=== PATIENT | male | born 1960 | race Caucasian/White ===

== ENCOUNTER 2018-09-26 11:10 | Emergency (ER) | payer OTHER, MEDICARE, SELFPAY ==
[2018-09-26] VITALS (13 sets, daily range): BP systolic 101–169; BP diastolic 69–99; PULSE 56–67; RESP 16; TEMP 36.7; O2SAT 89–97
[2018-09-26 11:35] LABS: Bilirubin Negative (Negative); Blood Trace-intact (Negative); Clarity Clear (Clear); Glucose Negative (Negative); Ketones Negative (Negative); Leukocyte Esterase Negative (Negative); Nitrite Negative (Negative)
[2018-09-26 11:46] LABS: Bacteria Rare HPF (Negative); C & S Indicated? No; Casts Negative LPF (Negative); Crystals Negative HPF (Negative); Epithelial Cells Few HPF (Negative); Mucus Moderate (Negative); Other Cells Rare Renal (Negative); WBC 0-2 HPF (0-5)
--- NOTE | 2018-09-26 11:46 | ED.GENADUL_ITS ---
Discharge Plan Disposition Patient Disposition: HOME Condition: Stable Discharge Details Chief Complaint: FlankPain Clinical Impression: Acute flank pain Primary Care Provider: John Trinh ED Provider: Raphael Yeboah Home Meds and New Rx's Prescriptions: New Aspercreme (lidocaine) 4 % adhesive patch,medicated 1 patch TP DAILY PRN (Reason: pain) Qty: 5 RF: 0 No Action Lift Chair Qty: 1 RF: 0 lansoprazole [Prevacid] 30 MG capsule,delayed release(DR/EC) 1 cap PO DAILY Qty: 90 RF: 4 medical marijuana RF: 0 Discharge Instructions Instructions: Flank Pain (ED) Additional Instructions: Please take 600 mg of ibuprofen every 8 hours for pain along with 1 g of Tylenol every 8 hours for pain. Please apply a lidocaine patch to the affected area once daily. Please return for increasing pain fever chills or other concern and follow-up with your primary care doctor this week. Your blood pressure was elevated in the emergency department today please recheck your blood pressure this week and follow-up with your primary care doctor for possible adjustment of your blood pressure medications. Medical Decision Making 58-year-old male with flank pain on the right side no abdominal tenderness no right lower quadrant tenderness prior history of appendectomy prior history of distant renal colic. Pain more classic for musculoskeletal pain no bowel bladder incontinence no change in sensation no distal weakness no foot drop normal plantar flexion and extension normal distal sensation on exam. Bedside ultrasound shows bilateral kidneys without hydronephrosis. UA shows trace blood will obtain basic labs check renal function and obtain a Noncon CT for possible renal colic if normal will treat symptomatically for muscular skeletal pain and have patient follow-up with primary care. 3:[address] abdomen pelvis unremarkable no renal calculi exam continues to be consistent with musculoskeletal flank and back pain plan analgesia rest primary care follow-up return for increasing pain fever chills or other concern. HPI 58-year-old male past medical history of hypertension Parkinson's disease distant renal calculi presents with 2 to 3 days of right flank pain without radiation worse with walking and standing waxes and wanes sometimes at rest no dysuria no gross hematuria no fever chills patient fell from standing yesterday or the day before no head trauma this pain did not change occurred before the fall no other complaints. No shortness of breath chest pain nausea vomiting diarrhea loss of consciousness fever or chills. Pain is sharp waxing and waning nonradiating worse with movement. General Date/Time Provider Initiated Documentation: 09/26/18 11:21 . Related Data Home Medications Medication Instructions Recorded Confirmed lansoprazole [Prevacid] 1 cap PO DAILY #90 cap 10/05/17 09/26/18 lidocaine [Aspercreme (lidocaine)] 1 patch TP DAILY PRN #5 each 09/26/18 Previous Rx's Medication Instructions Recorded lansoprazole [Prevacid] 1 cap PO DAILY #90 cap 10/05/17 lidocaine [Aspercreme (lidocaine)] 1 patch TP DAILY PRN #5 each 09/26/18 Allergies Allergy/AdvReac Type Severity Reaction Status Date / Time oxybutynin Allergy Severe Hallucinati Verified 09/26/18 11:19 ons/suicida l mirabegron [From Myrbetriq] Allergy Unknown suicidal Verified 09/26/18 11:19 ideations/dreams fentanyl AdvReac Severe HALLUCINATIONS; Unverified 09/26/18 11:19 SUICIDAL IDEATION General Stated Complaint: FlankPain R[place]: 3 Review of Systems Review of Systems All systems reviewed & are unremarkable except as noted in HPI and below PFSH Social History (Updated 01/20/18 @ 11:12 by Stacey Riley RN) Smoking/Tobacco Use Status: Former Tobacco Use Drug use: Current Sobriety Adopted: No Foster care: No Household members: spouse Housing: house Number of Children: 3 number of grandchildren: 1 Pets and animals: Yes Pets and animals: cat(s) and dog(s) What type of physical activity do you participate in: additional Details: enrolled in boxing program in [place] Seatbelt use: sometimes Do you feel safe at home: Yes Do you feel safe in your relationship?: Yes Exam Narrative Exam Narrative: Pulse oximetry reviewed by me and is normal: Constitutional: in no acute distress. well appearing. oriented to person, place, and time. Eyes: conjunctivae are normal. Pupils are equal, round, and reactive to light. No scleral icterus. extraocular muscles are intact Ears/Nose/Mouth/Throat: muscousal membranes are moist. Musculoskeletal: neck is supple. normal range of motion in all extremities. Cardiovascular: Normal rate and rhythm. No lower extremity edema Respiratory: effort is normal. no stridor or respiratory distress. GastrointestinaI: abdomen soft, +BS, nontender, -rebound, -guarding. No CVAT Neurological: alert and oriented to person, place, and time. normal strength, no tremor. Skin: Skin is warm and dry. not diaphoretic. Distal perfusion intact, warm extremities, cap refill < 2 seconds. Hem/Lymph/Imm: No cervical LAD, no goiter, no conjunctival pallor Psych: normal mood and affect. behavior is normal Triage and nurse notes reviewed. Course Vital Signs Temperature 36.7 C 09/26/18 11:15 Pulse 67 09/26/18 11:15 Respiratory Rate 16 09/26/18 11:15 Blood Pressure 169/99 H 09/26/18 11:15 Pulse Oximetry 95 09/26/18 11:15 Temperature 36.7 C 09/26/18 11:15 Temperature Source Temporal Artery Scan 09/26/18 11:15 Pulse 67 09/26/18 11:15 Respiratory Rate 16 09/26/18 11:15 Respiratory Effort Non-Labored 09/26/18 11:17 Blood Pressure 169/99 H 09/26/18 11:15 Blood Pressure Position Sitting 09/26/18 11:15 Pulse Oximetry 95 09/26/18 11:15 Oxygen Delivery Method Room Air 09/26/18 11:15 Oxygen Flow Rate 0 09/26/18 11:15 Pain Level 5 09/26/18 11:18 Lab/Test Results Lab/Test Results: Laboratory Tests Range/Units 09/26/18 11:23 Urine Color (Yellow) Yellow Urine Clarity (Clear) Clear Urine pH (5-8) 6.0 Ur Specific [place] (1.005-1.025) 1.020 Urine Protein (Negative) mg/dL Negative Urine Ketones (Negative) mg/dL Negative Urine Blood (Negative) Trace-intact H Urine Nitrite (Negative) Negative Urine Bilirubin (Negative) Negative Urine Urobilinogen (Up TO 0.2) EU/dL 1.0 H Ur Leukocyte Esterase (Negative) Negative Urine Glucose (Negative) mg/dL Negative
[2018-09-26 12:13] LABS: Abs Immature Grans 0.02 k/cumm (0.0-0.09); Absolute Basophil Count 0.03 k/cumm (0.0-0.2); Absolute Eosinophil Count 0.12 k/cumm (0.0-0.7); Absolute Lymphocyte Count 1.18 k/cumm (1.2-3.4); Absolute Monocyte Count 0.83 k/cumm (0.11-0.7); Absolute Neutrophil Count 4.35 k/cumm (1.2-6.7); Basophils % 0.5; Eosinophils % 1.8; HCT 45.5 % (40.0-50.0); Immature Grans % 0.3; Lymphocytes % 18.1; Mean Corp. HGB Concentration 35.2 g/dL (32.0-36.0); Mean Corpuscular Hemoglobin 31.3 pg (27.0-33.0); Mean Platelet Volume 9.4 fL (8.0-11.0); Monocytes % 12.7; Neutrophils % 66.6; Platelet Count 238 x1000/uL (130-400); RBC 5.11 m/cumm (4.50-6.00); RBC Distribution Width 12.9 % (11.8-14.1); White Blood Cell Count 6.53 k/cumm (4.4-10.8)
[2018-09-26 12:21] LABS: Anion Gap 9.6 mmol/L (3-11); BUN 15 mg/dL (7-18); CO2 26.4 mmol/L (21.0-32.0); CREATININE 0.82 mg/dL (0.70-1.30); Calcium 9.2 mg/dL (8.5-10.1); Chloride 107 mmol/L (98-107); Glucose 108 mg/dL (70-100); Potassium 3.7 mmol/L (3.5-5.1); Sodium 143 mmol/L (136-145)
[2018-09-26] MEDS: Ketorolac 30 MG/ML VIAL IVP (12:31)
--- NOTE | 2018-09-26 13:24 | DI.CT_ITS ---
SYMPTOMS/DIAGNOSIS: FLANK PAIN RENAL COLIC CT: Routine examination was performed. Comparison 01/21/10. Lack of IV contrast does limit evaluation of the abdominal and pelvic organs. The unenhanced visualized portions of the liver, spleen, pancreas, gallbladder, bile ducts and adrenal glands are unremarkable. The kidneys show no evidence of nephrolithiasis, ureterolithiasis or hydronephrosis. The urinary bladder is intact. The reproductive organs are unremarkable. The aorta is of normal caliber. No significant abdominal or pelvic adenopathy, ascites or pneumoperitoneum is present. The bowel shows no evidence of obstruction, inflammation or infection. A normal appendix is present. The patient has a left total hip replacement. No osseous fracture is identified. Degenerative changes are seen in the spine. IMPRESSION: No acute abnormality. No findings of nephrolithiasis or obstructive uropathy.
[2018-09-26] MEDS: MORPHine 10 MG/ML VIAL 2 MG IVP (13:48)
--- NOTE | 2018-09-26 14:38 | DI.VRAD_ITS ---
EXAM: CT Abdomen and Pelvis Without Contrast EXAM DATE/TIME: 09/26/2018 11:47 AM CLINICAL HISTORY: 58 years old, male; Other: Flank pain TECHNIQUE: Imaging protocol: Axial computed tomography images of the abdomen and pelvis without contrast. Coronal and sagittal reformatted images were created and reviewed. COMPARISON: CR LEFT HIP COMPLETE \T\ AP PELVIS 07/02/2016 3:36 PM FINDINGS: Liver: Normal. No mass. Gallbladder and bile ducts: Normal. No calcified stones. No ductal dilation. Pancreas: Normal. No ductal dilation. Spleen: Normal. No splenomegaly. Adrenals: Normal. No mass. Kidneys and ureters: No ureteral calculus. No renal calculus Stomach and bowel: Normal. No obstruction. No mucosal thickening. Appendix: Normal appendix Intraperitoneal space: Normal. No free air. No significant fluid collection. Vasculature: Normal. No abdominal aortic aneurysm. Lymph nodes: Normal. No enlarged lymph nodes. Bladder: Unremarkable as visualized. Reproductive: Unremarkable as visualized. Bones/joints: Left total hip replacement. Soft tissues: Unremarkable. IMPRESSION: No acute process Dictated and Authenticated by: Kimberly Estrada MD. Ordering:PRECIOUS Lim MD
== END 2018-09-26 15:50 | disposition home or self-care (01) ==
PROVIDERS: Emergency Provider Emergency Medicine; PCP Family Medicine
DX: M54.5 Low back pain (principal); Z87.442 Personal history of urinary calculi; I10 Essential (primary) hypertension; G20 Parkinson's disease
CPT/HCPCS: 80048; 96374; 96375; 99284; 74176; 81003; 81015; 85025; 99285; J1885; J2270

== ENCOUNTER 2018-12-16 11:53 | Day surgery (SDC) | payer OTHER, MEDICARE, SELFPAY ==
[2018-12-16 12:07] VITALS: BP 143/94; PULSE 69; RESP 17; TEMP 36.5; O2SAT 96
[2018-12-16] MEDS: Lactated Ringers 1,000 ML 80 ML IV (13:01)
--- NOTE | 2018-12-16 13:25 | DI.RAD_ITS ---
EXAM: XR RETROGRADE IN OR INDICATION: MICROSCOPIC HEMATURIA. COMPARISON: No exams were available for comparison TECHNIQUE: 2D digital imaging was performed. FINDINGS: C-arm fluoroscopy was utilized by Dr. Sheridan during retrograde ureterography. Please see Dr. Sheridan's procedure note. Fluoro Time: 25.0 sec
[2018-12-16] MEDS: ceFAZolin 1 GM/50 ML BAG IVPB (13:50)
[2018-12-16] MEDS: Omnipaque 300 MG/ML 50 ML BTL (14:05)
[2018-12-16] MEDS: Lidocaine 2% Jelly 6 ML SYR (14:05)
--- NOTE | 2018-12-16 14:15 | W.PM.DSUDISC ---
Discharge Plan Disposition Patient Disposition: HOME Discharge Details Attending Provider: Andres Sheridan Primary Care Provider: John Trinh Home Meds and New Rx's Prescriptions: No Action Lift Chair Qty: 1 RF: 0 lansoprazole [Prevacid] 30 MG capsule,delayed release(DR/EC) 1 cap PO DAILY Qty: 90 RF: 4 medical marijuana RF: 0 Discharge Instructions Additional Instructions: Follow up yearly with urinalysis Activity:: Activity as Tolerated Shower/Bathe:: 24 hours Diet:: As Tolerated Discharge Orders Discharge Orders: Discharge Order (Routine); Ordered 12/16/18 Ordered By: Andres Sheridan DS: Diagnosis Discharge Diagnosis (1) Microscopic hematuria: Status: Acute
[2018-12-16 14:50] VITALS: BP 141/93; PULSE 61; RESP 16; TEMP 36.3; O2SAT 98
[2018-12-16] MEDS: Phenazopyridine 200 MG TAB PO (14:52)
--- NOTE | 2018-12-17 10:14 | ROE_ITS ---
DATE OF PROCEDURE: December 16, 2018 PREOPERATIVE DIAGNOSIS: Microscopic hematuria. POSTOPERATIVE DIAGNOSIS: Microscopic hematuria. PROCEDURE: Cystoscopy with bilateral retrograde pyelogram. SURGEON: Andres Sheridan M.D. ANESTHESIA: MAC with local. COMPLICATIONS: None. HISTORY: This is a 58-year-old gentleman who has been identified as having microscopic hematuria wit h greater than three red cells per high powered field. He's had a non-contrast CT that showed no spe cific uropathology. He presents for a cystoscopy and retrograde pyelogram to complete his hematuria workup. OPERATIVE REPORT: The patient was brought to the Operating Room on 12/16/18. After being given chela tored anesthesia care, he was placed in the dorsal lithotomy position. His genitalia was prepped and draped. 2% Xylocaine jelly was instilled into the urethra to act as a local anesthetic. A 22 Y[place] rigid cystoscope was passed through the urethra into the bladder. The urethra and bladde r were inspected with a 30-degree lens. The pendulous, bulbous and membranous urethras all appeared normal with no strictures. The prostatic urethra showed evidence of an elevated bladder neck and some lateral lobe enlargement. The prostati c mucosa was hyperemic but no active bleeding was seen and no papillary lesions were seen in the pros tatic urethra. The bladder neck was entered and the bladder mucosa was inspected. Both ureteral orifices appeared n ormal. Each orifice was cannulated with a 6 Y[place]ut access catheter and retrograde films were obtaine d by injecting Omnipaque through the access catheter under fluoroscopic guidance. Both ureters and collecting systems appeared normal. Both sides drained promptly on delayed drainage films. The remainder of the bladder was then inspected using both the 30 and the 70-degree lens. The bladde r was moderately trabeculated, but I did not see any papillary or nodular lesions. I saw no stones. Based on today's examination the most-likely source of his microscopic hematuria is his prostatic ure thra. As long as he is not symptomatic no treatment is needed. If he is symptomatic a 5-alpha reduc tase inhibitor, such as Finasteride or Avodart, would be appropriate. In terms of follow-up, he will need year urinalyses and a repeat workup in 3 to 5 years if his hematu michele persists. cc: John Trinh M.D.
== END 2018-12-16 15:12 | disposition home or self-care (01) ==
PROVIDERS: PCP Family Medicine; Visit Provider Urology
PROC: (CPT 74450; principal; 2018-12-16 13:00)
DX: R31.29 Other microscopic hematuria (principal); I10 Essential (primary) hypertension; G47.33 Obstructive sleep apnea (adult) (pediatric)
CPT/HCPCS: 52005; 74420; J0690; Q9967

== ENCOUNTER 2020-02-17 01:24 | Outpatient (CLI) | payer OTHER, MEDICARE, SELFPAY ==
--- NOTE | 2020-02-17 06:45 | DI.RAD_ITS ---
EXAM: XR CHEST 2V PA LATERAL CLINICAL HISTORY: chronic cough,R05 TECHNIQUE: 2D digital imaging was performed. COMPARISON: CR CHEST 2 VIEWS PA,LAT from 05/25/2010 FINDINGS: MEDIASTINUM: Normal. HEART: Normal. PULMONARY VASCULATURE: Normal. LUNGS: Clear. PLEURAL SPACE: No pleural effusion or pneumothorax. BONE:Normal. OTHER FINDINGS:Normal. IMPRESSION: No acute pulmonary findings. DATA REPOSITORY: RADIATION DOSE DELIVERED:
== END 2020-02-17 01:44 ==
PROVIDERS: PCP Nurse Practitioner Family; Visit Provider Nurse Practitioner Family
DX: R05 Cough (principal)
CPT/HCPCS: 71046

== ENCOUNTER 2020-04-19 02:59 | Outpatient (CLI) | payer OTHER, MEDICARE, SELFPAY ==
[2020-04-19 10:19] LABS: Anion Gap 10.9 mmol/L (3-11); BUN 13 mg/dL (7-18); CO2 26.1 mmol/L (21.0-32.0); Calcium 9.3 mg/dL (8.5-10.1); Calculated LDL 117 mg/dL (<100); Chloride 104 mmol/L (98-107); Cholesterol 180 mg/dL (<200); Glucose 106 mg/dL (74-106); HDL Cholesterol 48 mg/dL (40-60); Potassium 3.7 mmol/L (3.5-5.1); Sodium 141 mmol/L (136-145); Triglyceride 77 mg/dL (<150)
== END 2020-04-19 03:00 | disposition home or self-care (01) ==
LOC: LBO 02:59
PROVIDERS: PCP Nurse Practitioner Family; Visit Provider Nurse Practitioner Family
DX: E78.5 Hyperlipidemia, unspecified (principal)
CPT/HCPCS: 36415; 80048; 80061; 83036

== ENCOUNTER → 2020-05-03 13:02 | Outpatient (BNVA) | payer MEDICARE, OTHER, SELFPAY | PROVIDERS: PCP Nurse Practitioner Family; Referring Provider Nurse Practitioner Family; Visit Provider Surgery | DX: Z12.11 Encounter for screening for malignant neoplasm of colon (principal) | CPT/HCPCS: 99242 ==

== ENCOUNTER 2020-05-11 11:07 | Day surgery (SDC) | payer OTHER, MEDICARE, SELFPAY ==
[2020-05-11 11:24] VITALS: BP 156/98; PULSE 71; RESP 16; TEMP 36; O2SAT 96
[2020-05-11] MEDS: Lactated Ringers 1,000 ML 80 ML IV (11:52)
--- NOTE | 2020-05-11 13:34 | W.COLOREPORT ---
Date of service: 05/11/20 Time of Service: 13:34 Colonoscopy Report Date of procedure: 05/11/20 Pre-op diagnosis general: screening Post-op diagnosis procedure note: other Procedure: rectal exam under sedation Surgeon: Melva Josue Anesthesia proc note operative: MAC Estimated blood loss (mL): 0 Pathology: none sent Complications: None Disposition: same day Prep: Miralax/Dulcolax Procedure Description: After informed consent was obtained the patient was taken to the procedure room and placed in a left decubitous position. Monitors were applied and a time out was done. The patients name, date of , procedure, allergies to medications and metal in their body was reviewed. The patient was then sedated. Once sedated and comfortable a rectal exam was done. External exam was normal. Internal exam revealed a normal sphincter tone and no palpable masses. The scope was then introduced and retrofelexed. no internal hemorrhoids were identified. There are no masses in the rectum. Patient has good tone. The scope was inserted. It is passed the to approximately 20 cm. There is stool that is coating the conteh. It does clog up the valve on the scope. At this point the scope was abandoned because of poor prep. Patient really is a poor candidate for anesthesia and I do not think he needs requires further colonoscopy. The scope was removed and the patient was woken up and taken back to Same day surgery in stable condition. The patient tolerated the procedure well and there were no immediate complications.
--- NOTE | 2020-05-11 13:37 | W.PM.DSUDISC ---
Discharge Plan Disposition Patient Disposition: HOME Condition: Stable Discharge Details Reason For Visit: colon scope Attending Provider: Melva Josue Primary Care Provider: Heena Martínez Home Meds and New Rx's Prescriptions: New docusate sodium [Colace] 100 mg capsule 100 mg PO BID Qty: 60 RF: 12 polyethylene glycol 3350 [Miralax] 17 gram/dose powder 17 g PO DAILY Qty: 850 RF: 12 Continued lansoprazole [Prevacid] 30 mg capsule,delayed release(DR/EC) 30 mg PO .Every other day Qty: 90 RF: 4 bupropion HCl [Wellbutrin XL] 300 mg tablet extended release 24 hr 300 mg PO QAM Qty: 90 RF: 4 acetaminophen [Tylenol Extra Strength] 500 mg tablet 1,500 mg PO Q6H PRNRF: 0 medical marijuana RF: 0 Discharge Instructions Additional Instructions: Findings: normal rectal exam incomplete prep Bowel regimen: Colace 100mg BID Miralax daily. Can increase to Miralax BID if still experiencing constipation. Follow up: No further colonscopy's needed Please call if you develop: fevers >101.5 Nausea or Vomiting Abdominal pain that is not transient DAY SURGERY UNIT POST COLONOSCOPY INSTRUCTIONS 1. Because there will be medication in your system for the next 24 hours, you may feel a little sleepy. Your coordination will be affected. Therefore: a. Do not drive or operate dangerous equipment for 24 hours. b. Do not drink alcohol beverages for 24 hours (not even beer). c. Plan to go home and rest for the day. 2. Generally there are no restrictions on your activity after a day or so has gone by, but you may feel a bit fatigued for a few days. 3 After you arrive home you may have a light meal and return to a normal diet as you can tolerate it without feeling sick to your stomach. 4. After surgery, you may feel pain or discomfort. This should be only transient, but if it persists please contact your doctor. 5. If there are any questions regarding the findings of your procedure, please feel free to contact your doctor. 6. If you are unable to contact your doctor with a problem, contact the hospital at [phone]. 7. Continue all your regular medications unless directed otherwise. I understand the above instructions and have no questions. Signature of Patient or Responsible Adult Escort Date/Time Name of Responsible Adult Escort Signature of Nurse Date/Time Activity:: Activity as Tolerated Diet:: As Tolerated Discharge Orders Discharge Orders: Discharge Order (Routine); Ordered 05/11/20 Ordered By: Melva Josue
[2020-05-11 13:52] VITALS: BP 123/75; PULSE 59; RESP 16; TEMP 36.6; O2SAT 93
== END 2020-05-11 15:05 | disposition home or self-care (01) ==
PROVIDERS: PCP Nurse Practitioner Family; Visit Provider Surgery
PROC: 0DJD8ZZ Inspection of Lower Intestinal Tract, Via Natural or Artificial Opening Endoscopic (ICD-10-PCS; CPT 45378; principal; 2020-05-11 11:15)
DX: Z12.11 Encounter for screening for malignant neoplasm of colon (principal); Z53.09 Procedure and treatment not carried out because of other contraindication; G47.33 Obstructive sleep apnea (adult) (pediatric); G20 Parkinson's disease; R73.03 Prediabetes
CPT/HCPCS: G0105; J2001

== ENCOUNTER 2020-05-17 01:29 | Outpatient (CLI) | payer OTHER, MEDICARE, SELFPAY ==
--- NOTE | 2020-05-17 | DI.CT_ITS ---
EXAM: CT UPPER EXTREMITY LT WO CLINICAL HISTORY: ARTHROPATHY,PREOPERATIVE PLANNING,ROTATOR CUFF INTEGRIT,EVALUATE GLENOID. TECHNIQUE: Imaging Protocol: Axial computed tomography images with coronal and sagittal reformatted images were created and reviewed. COMPARISON: No exams were available for comparison FINDINGS: CT scan of the left shoulder was performed for preoperative planning. Moderate degenerative changes are seen at the glenohumeral joint with joint space narrowing subchondral cysts seen in the glenoid a nd periarticular spurring of the humeral head. There is mild superior subluxation of the humeral hea d which may reflect chronic rotator cuff tear. No acute fracture or dislocation is seen. The bones are normally mineralized. The soft tissues are unremarkable. The visualized lungs are clear. IMPRESSION: Degenerative changes of the glenohumeral joint as described above. RADIATION DOSE DELIVERED: 1,229.09mGy.cm Total DLP 1,229.09mGy.cm Total DLP DATA REPOSITORY: All CT scans at this facility are submitted to the National Radiology Data Registry (NRDR) Dose Index Registry (DIR) with the [employer] ([employer]). RADIATION OPTIMIZATION: All CT scans at this facility use at least one of these dose optimization te chniques: automated exposure control; mA and/or kV adjustment per patient size (includes targeted exa ms where dose is matched to clinical indication); or iterative reconstruction.
== END 2020-05-17 01:49 ==
PROVIDERS: PCP Nurse Practitioner Family; Visit Provider Orthopaedic Surgery
DX: M19.012 Primary osteoarthritis, left shoulder (principal)
CPT/HCPCS: 73200

== ENCOUNTER 2020-07-31 09:57 | Outpatient (CLI) | payer OTHER, MEDICARE, SELFPAY ==
[2020-07-31 16:47] LABS: Source Nasal/Nares
[2020-07-31 23:32] LABS: COVID-19 PCR Negative (Negative)
== END 2020-07-31 09:58 | disposition home or self-care (01) ==
PROVIDERS: PCP Nurse Practitioner Family; Visit Provider Orthopaedic Surgery
DX: Z20.822 Contact with and (suspected) exposure to COVID-19 (principal); Z01.818 Encounter for other preprocedural examination
CPT/HCPCS: 87635

== ENCOUNTER 2020-12-10 15:12 | Outpatient (REF) | payer OTHER, MEDICARE, SELFPAY | END 2020-12-10 15:13 | disposition home or self-care (01) | LOC: LBN 15:12 | PROVIDERS: PCP Nurse Practitioner Family; Visit Provider Urology | DX: N20.0 Calculus of kidney (principal) | CPT/HCPCS: 87077; 87086; 87186 ==

== ENCOUNTER 2020-12-26 16:56 | Outpatient (REF) | payer OTHER, MEDICARE, SELFPAY ==
[2020-12-26 17:37] LABS: Bilirubin Negative (Negative); Blood Negative (Negative); Clarity Clear (Clear); Glucose Negative (Negative); Ketones Negative (Negative); Leukocyte Esterase Negative (Negative); Nitrite Negative (Negative)
== END 2020-12-26 16:57 | disposition home or self-care (01) ==
LOC: LBN 16:56
PROVIDERS: Nurse Practitioner Gerontology; PCP Nurse Practitioner Family; Visit Provider Nurse Practitioner Family
DX: N39.0 Urinary tract infection, site not specified (principal)
CPT/HCPCS: 81003

== ENCOUNTER 2021-03-02 11:28 | Emergency (ER) | payer OTHER, MEDICARE, SELFPAY ==
[2021-03-02] VITALS (14 sets, daily range): BP systolic 138–164; BP diastolic 84–93; PULSE 59–72; RESP 16–24; TEMP 36.2; O2SAT 92–98
--- NOTE | 2021-03-02 11:45 | RT.EKG_ITS ---
APPROVED REPORT Exam: Resting ECG Reason for Exam: Edema and dizzness Patient Location: E HR:67 bpm ECG Measurements Heart Rate 67 AXIS MN 224 P 31 QRSd 101 QRS -65 QT 382 T -1 QTc 403 Conclusion Sinus rhythm...normal P axis, V-rate 60- 99 Prolonged MN interval...MN >210, V-rate 50- 90 Left anterior fascicular block...axis(240,-40), init forces inf
--- NOTE | 2021-03-02 11:53 | W.ED.GENAD ---
Discharge Plan Disposition Patient Disposition: HOME Condition: Stable Discharge Details Clinical Impression: DVT (deep venous thrombosis) Primary Care Provider: Heena Martínez ED Provider: Mendel Bob Home Meds and New Rx's Prescriptions: New apixaban 5 mg (74 tabs) tablets,dose pack 5 mg PO ONCE Qty: 74 RF: 0 Continued polyethylene glycol 3350 [Miralax] 17 gram/dose powder 8.5 g PO DAILY PRN (Reason: constipation) Qty: 510 RF: 4 docusate sodium 50 mg/5 mL liquid 100 mg PO DAILY PRN (Reason: constipation) Qty: 1000 RF: 4 Metamucil 3.4 gram/5.4 gram powder 1 tbsp PO DAILY Qty: 660 RF: 4 acetaminophen [Tylenol Extra Strength] 500 mg tablet 1,500 mg PO Q6H PRNRF: 0 bupropion HCl 450 mg tablet extended release 24 hr 450 mg PO DAILY Qty: 90 RF: 4 lansoprazole [Prevacid] 30 mg capsule,delayed release(DR/EC) 30 mg PO .Every other day Qty: 90 RF: 4 finasteride 5 mg tablet 5 mg PO DAILY Qty: 90 RF: 3 gabapentin 300 mg capsule 30 mg PO .QHS PRNRF: 0 No Action medical marijuana RF: 0 Discharge Instructions Instructions: Apixaban (By mouth), Deep Vein Thrombosis (ED), Fall Prevention (ED) Additional Instructions: Given highly suspicious findings of bedside ultrasound you have been placed upon blood thinners pending official ultrasound early next week. Given this she will need to be extremely cautious with ambulation and preventing potential falls as this could lead to a life-threatening head bleed as discussed. If you notice any other signs of bleeding which would include dark tarry stools, bloody or coffee-ground vomit, or abnormal bleeding/bruising please return immediately to the emergency department for reassessment. Also given your high risk of falls if you do fall you should also have emergent evaluation due to your risk of life-threatening bleeding. Please take medication as prescribed and call the number on the outpatient order sheet for arrangement of your ultrasound on Thursday. Discharge Data Discharge Date/Time-TO BE ENTERED AT DEPARTURE: 03/02/21 14:28 Medical Decision Making <Mendel Bob NP - Last Filed: 03/03/21 08:19> Patient presenting to the emergency department for chief complaint of right leg pain and swelling. He states that this is been going on for the past 5 days. Reports recent multiple falls due to his Parkinson's which are not abnormal. Denies any change in tremor. Does state mild intermittent dizziness denies chest pain, shortness of breath, change in neurological symptoms from baseline. Physical exam shows 1+ pitting edema from the knee/thigh down to the right foot. Pulses are present, pain is not out of proportion to exam, compartments are soft with diffuse tenderness noted to right upper thigh and more pain reported by patient on palpation to medial aspect compared the lateral aspect but patient still does complain of lateral leg pain. Plan to check labs including D-dimer and bedside ultrasound for suspicion of DVT versus secondary confusion. At this time I feel very cautious about prescribing anticoagulant given patient history of repeated falls at baseline. Review of labs show an elevated D-dimer. Discussed with patient risk versus benefit of unofficial bedside ultrasound given condition. Patient and significant other are agreeable to this bedside procedure. There does appear to be a thrombosis to the medial aspect of the femoral vein. Discussed with patient and family that there are no absolute contraindications to anticoagulation and that DVT can be life-threatening but given his high falls this is not without risk. After thorough discussion of risk versus benefit of anticoagulation patient and significant other were agreeable to being started on this med pending official ultrasound when available. After discussion of diagnosis and plan of care patient has no further needs, questions, or concerns and states clear understanding to return to the emergency department for any worsening symptoms. <Tal Quinones MD - Last Filed: 03/02/21 14:08> Patient seen, examined, and discussed with KAUSHAL Bob. I agree with treatment plan as discussed/documented. HPI <Mendel Bob NP - Last Filed: 03/03/21 08:19> General Date/Time Provider Initiated Documentation: 03/02/21 11:38. Limitations to Documentation: no limitations. Information obtained by: patient and family. History of Present Illness 60 year old M presents to the emergency department with the chief complaint of Right leg pain and swelling, described as moderate, with intensity rated at 5. Quality is described as aching, and is localized to the right and lower extremity. Patient started experiencing this day(s) (5) and it has been constant. No relieving factors improve symptom(s), Other factors that worsen symptoms (falls) . Patient did receive the following treatments prior to arrival, none Related Data Home Medications Medication Instructions Recorded Confirmed acetaminophen 500 mg tablet 1,500 mg PO Q6H PRN tab 05/03/20 03/02/21 bupropion HCl 450 mg 24 hr tablet, 450 mg PO DAILY #90 tab 07/02/20 03/02/21 extended release lansoprazole 30 mg capsule,delayed 30 mg PO .Every other day #90 cap 09/21/20 03/02/21 release finasteride 5 mg tablet 5 mg PO DAILY #90 tab 12/27/20 03/02/21 docusate sodium 50 mg/5 mL oral 100 mg PO DAILY PRN #1000 ml 02/14/21 03/02/21 liquid polyethylene glycol 3350 17 8.5 g PO DAILY PRN #510 g 02/14/21 03/02/21 gram/dose oral powder psyllium husk 3.4 gram/5.4 gram 1 tbsp PO DAILY #660 g 02/14/21 03/02/21 oral powder apixaban 5 mg PO ONCE #74 dose pk 03/02/21 gabapentin 30 mg PO .QHS PRN 03/02/21 03/02/21 Previous Rx's Medication Instructions Recorded bupropion HCl 450 mg 24 hr tablet, 450 mg PO DAILY #90 tab 07/02/20 extended release lansoprazole 30 mg capsule,delayed 30 mg PO .Every other day #90 cap 09/21/20 release finasteride 5 mg tablet 5 mg PO DAILY #90 tab 12/27/20 docusate sodium 50 mg/5 mL oral 100 mg PO DAILY PRN #1000 ml 02/14/21 liquid polyethylene glycol 3350 17 8.5 g PO DAILY PRN #510 g 02/14/21 gram/dose oral powder psyllium husk 3.4 gram/5.4 gram 1 tbsp PO DAILY #660 g 02/14/21 oral powder apixaban 5 mg PO ONCE #74 dose pk 03/02/21 Allergies Allergy/AdvReac Type Severity Reaction Status Date / Time oxybutynin Allergy Severe Hallucinati Verified 03/02/21 11:38 ons/suicida l mirabegron [From Myrbetriq] Allergy Unknown suicidal Verified 03/02/21 11:38 ideations/dreams fentanyl AdvReac Severe HALLUCINATIONS; Verified 03/02/21 11:38 SUICIDAL IDEATION duloxetine [From Cymbalta] AdvReac Intermediate Nausea Verified 03/02/21 11:38 General Stated Complaint: Vascular RENO: 3 Review of Systems <Mendel Bob NP - Last Filed: 03/03/21 08:19> Constitutional Constitutional: Denies chills, Denies fever(s) and Reports frequent falls Cardiovascular Cardiovascular: Denies chest pain, Denies syncope, Reports pedal edema, Reports leg edema and Denies dyspnea Respiratory Respiratory: Denies cough and Denies dyspnea Gastrointestinal Gastrointestinal: Denies abdominal pain Musculoskeletal Musculoskeletal: Reports as per HPI and Denies arthralgias Integumentary/Breasts Skin/Breast: Denies erythema and Denies rash Neurologic Neurologic: Denies confusion, Denies syncope, Reports frequent falls and Reports tremor(s) (denies change in baseline) Psychiatric Psychiatric: Denies confusion PFSH <Mendel Bob NP - Last Filed: 03/03/21 08:19> All Active Problems (Updated 03/02/21 @ 13:42 by Mendel Bob NP) DVT (deep venous thrombosis) (Chronic) Parkinson's disease (Chronic) Bilateral pallidotomy Obstructive sleep apnea syndrome (Chronic) Unable to tolerate CPAP Hyperlipidemia (Chronic) Prediabetes (Chronic) Major depressive disorder (Chronic) [place] [facility] [place] Insomnia (Chronic) Constipation (Acute) Non-alcoholic fatty liver disease (Chronic) Gastroesophageal reflux disease (Chronic) Lumbosacral spondylosis without myelopathy (Chronic) Sensorineural hearing loss, bilateral (Chronic) Medical History Essential hypertension Surgical History History of colonoscopy (~05/11/20) History of revision of total replacement of left hip joint (07/21/19) S/P appendectomy S/P brain surgery Bilateral pallidotomy S/P colonoscopy S/P tonsillectomy S/P vasectomy 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 Sister No problems noted. Son Heart disease Son No problems noted. Son Depression Daughter No problems noted. Daughter No problems noted. Paternal Grandfather Heart disease Paternal Grandmother No problems noted. Maternal Grandfather No problems noted. Maternal Grandmother Depression Social History Smoking/Tobacco Use Status: Former Tobacco Use tobacco type: cigarettes Quit Date: 03/09/06 Pack-years: 25 Smoking risk assessment performed?: Yes Alcohol Intake: never Drug use: Daily Substance use type: marijuana Adopted: No Caregiver/Support person: No Foster care: No Household members: spouse Housing: house Number of Children: 3 number of grandchildren: 1 Communication Needs: Hard of Hearing and Corrective Lenses Do you need help understanding health information?: Rarely Pets and animals: Yes Pets and animals: dog(s) Sexually active: No Do you think of yourself as: straight/heterosexual What is your relationship status?: How often do you talk on the phone with friends or family?: twice per week How often do you get together with friends or relatives?: once per week How often do you attend synagogue or latter-day services?: decline to answer Do you belong to any clubs or organized social groups?: no Panel score (0-1 are the most socially isolated patients): 2 Tati/Yarsanism: No preference Special tati needs: No Seatbelt use: always Helmet use: No Drive intox or ride w/intox medical van driver: No Do you feel safe at home: Yes Do you feel safe in your relationship?: Yes Exam <Mendel Bob NP - Last Filed: 03/03/21 08:19> Const General: cooperative, healthy appearing, comfortable and no acute distress Orientation: alert, awake and oriented x3 Resp Effort & Inspection: normal respiratory effort and able to speak in complete sentences Auscultation: clear to auscultation bilaterally Cardio Rate: regular rate Rhythm: regular rhythm Heart Sounds: S1 normal and S2 normal Pulses: radial pulses present, posterior tibial pulses present and normal peripheral pulses Neuro General: patient alert, patient awake, patient oriented x3 and moves all extremities Motor: tremor Extrem Right lower extremity: normal capillary refill, edema (from thigh down) Details: 1+ and hip/thigh Details: tenderness Location: other (Diffuse thigh tenderness with more noted medial than lateral. No point tenderness noted.) Left lower extremity: knee Details: abrasion Course <Mendel Bob NP - Last Filed: 03/03/21 08:19> Vital Signs Vital signs: Vital Signs Temperature 36.2 C L 03/02/21 11:33 Pulse 72 03/02/21 11:33 Respiratory Rate 16 03/02/21 11:33 Blood Pressure 164/93 H 03/02/21 11:33 Pulse Oximetry 98 03/02/21 11:33 Temperature 36.2 C L 03/02/21 11:33 Temperature Source Skin 03/02/21 11:33 Pulse 72 03/02/21 11:33 Respiratory Rate 16 03/02/21 11:33 Respiratory Effort 03/02/21 11:33 Blood Pressure 164/93 H 03/02/21 11:33 Blood Pressure Position Supine 03/02/21 11:33 Pulse Oximetry 98 03/02/21 11:33 Oxygen Delivery Method Room Air 03/02/21 11:33 Oxygen Flow Rate 0 03/02/21 11:33 Pain Level 5 03/02/21 11:33
[2021-03-02 12:21] LABS: Abs Immature Grans 0.02 10^3/uL (0.0-0.06); Absolute Basophil Count 0.08 10^3/uL (0.0-0.2); Absolute Eosinophil Count 0.22 10^3/uL (0.0-0.7); Absolute Monocyte Count 0.76 10^3/uL (0.1-0.8); Absolute Neutrophil Count 4.87 10^3/uL (1.2-6.7); Basophils % 1.1; HCT 43.9 % (40.0-50.0); HGB 14.1 g/dL (13.5-17.5); Immature Grans % 0.3; MCH 28.7 pg (27.0-33.0); MCHC 32.1 % (32.0-36.0); MCV 89.2 fL (80-95); Monocytes % 10.3; Neutrophils % 66.3; Nucleated RBC 0 %; Platelet Count 266 10^3/uL (130-400); RBC 4.92 10^6/uL (4.36-5.78); RDW 12.6 % (11.8-14.1); RDW-SD 41.4 fL; WBC 7.35 10^3/uL (4.4-10.8)
[2021-03-02 12:38] LABS: ALT 17 U/L (16-63); AST 14 U/L (15-37); Albumin 3.4 g/dL (3.4-5.0); Alkaline Phosphatase 87 U/L (46-116); BUN 11 mg/dL (7-18); Bilirubin, Total 0.3 mg/dL (0.2-1.0); CREATININE 1.1 mg/dL (0.70-1.30); Chloride 102 mmol/L (98-107); Glucose 145 mg/dL (74-106); Potassium 3.7 mmol/L (3.5-5.1); Sodium 138 mmol/L (136-145); Total Protein 7.2 g/dL (6.4-8.2); Troponin I < 50 ng/L (<or=60)
[2021-03-02] MEDS: Acetaminophen 325 MG TAB 650 MG PO (12:44)
[2021-03-02 12:52] LABS: D-Dimer 3675 ng/mlFEU (<500)
--- NOTE | 2021-03-02 14:07 | NUR.NOTE ---
Nursing Note: Request for right leg US for DVT, right leg edema faxed to DI. To be done Thursday, Mar 04 and to follow up in ED after. Mckenzie Gomez
--- NOTE | 2021-03-03 08:20 | NUR.NOTE ---
Referral faxed to [facility] for follow up of DVT within 1 week. Mckenzie Luciano Note:
== END 2021-03-02 14:28 | disposition home or self-care (01) ==
PROVIDERS: Emergency Provider Nurse Practitioner Family; PCP Nurse Practitioner Family
DX: I82.491 Acute embolism and thrombosis of other specified deep vein of right lower extremity (principal); R42 Dizziness and giddiness; R60.0 Localized edema
CPT/HCPCS: 36415; 80053; 93005; 99283; 84484; 85025; 85379; 93010

== ENCOUNTER 2021-03-04 11:17 | Emergency (ER) | payer OTHER, MEDICARE, SELFPAY ==
[2021-03-04 11:21] VITALS: BP 116/71; PULSE 74; RESP 18; TEMP 36.5; O2SAT 97
--- NOTE | 2021-03-04 11:35 | W.ED.GENAD ---
Discharge Plan Disposition Patient Disposition: HOME Condition: Stable Discharge Details Clinical Impression: DVT (deep venous thrombosis) Primary Care Provider: Heena Martínez ED Provider: Bhavana Heart Home Meds and New Rx's Prescriptions: Continued polyethylene glycol 3350 [Miralax] 17 gram/dose powder 8.5 g PO DAILY PRN (Reason: constipation) Qty: 510 RF: 4 docusate sodium 50 mg/5 mL liquid 100 mg PO DAILY PRN (Reason: constipation) Qty: 1000 RF: 4 Metamucil 3.4 gram/5.4 gram powder 1 tbsp PO DAILY Qty: 660 RF: 4 acetaminophen [Tylenol Extra Strength] 500 mg tablet 1,500 mg PO Q6H PRNRF: 0 bupropion HCl 450 mg tablet extended release 24 hr 450 mg PO DAILY Qty: 90 RF: 4 medical marijuana RF: 0 lansoprazole [Prevacid] 30 mg capsule,delayed release(DR/EC) 30 mg PO .Every other day Qty: 90 RF: 4 finasteride 5 mg tablet 5 mg PO DAILY Qty: 90 RF: 3 gabapentin 300 mg capsule 30 mg PO .QHS PRNRF: 0 apixaban 5 mg (74 tabs) tablets,dose pack 5 mg PO ONCE Qty: 74 RF: 0 Discharge Instructions Instructions: Deep Vein Thrombosis (ED) Additional Instructions: Your ultrasound confirms what was seen previously on the more informal ultrasound. Please continue with the Eliquis as previously prescribed. Please continue with your previous discharge instructions. I would like for you to follow-up with your primary care in the next 1 to 2 weeks for reevaluation. If you develop any new or worsening symptoms, in particular shortness of breath, chest pain, please seek care urgently once again. Referrals: Heena Martínez, KAUSHAL [Primary Care Provider] - Medical Decision Making Patient is a pleasant 60-year-old gentleman presented with chief complaint of DVT of the right lower extremity. He was here 2 days ago at which time a preliminary ultrasound was completed showing a DVT. Formal report was ordered for today. He states that since being evaluated in the ED and starting on Eliquis, his symptoms are greatly improved. He denies any continued pain. Pain has been in the right medial thigh. He denies any chest pain, shortness breath, headaches. On exam, patient appears nontoxic. She has no calf tenderness. No palpable cords. He indicates the medial posterior thigh consistent with where the clot was initially noted. No erythema or warmth over this area. Intact distal pulses. Ultrasound was reviewed by radiologist: FINDINGS: This is a positive-abnormal study. There is significant DVT both above and below the knee. Although there is no evidence of thrombus within the common femoral vein (groin level), below this level there is intraluminal thrombus within the proximal, mid, and distal aspects of the right femoral vein, extending down to and beyond the knee with involvement of the ipsilateral popliteal vein and extending to the proximal peroneal vein. The posterior tibial vein appears patent. There is also no evidence of clot within the ipsilateral greater saphenous vein. Profounda femoris vein also exhibits intraluminal thrombus. IMPRESSION: 1. Positive study with DVT evident in the right thigh and calf as described above,, extending from the level of the proximal femoral vein down to and including the proximal peroneal veins in the upper calf. 2. The ipsilateral greater saphenous vein is patent.\ Discussed these findings with the patient. He will continue with the Eliquis. I advised that he should follow-up with his primary care provider in the next week for reevaluation. Return precautions were discussed. All of his questions and concerns were addressed and he is in agreement this plan. HPI General Mode of arrival: ambulatory. Date/Time Provider Initiated Documentation: 03/04/21 11:18. Limitations to Documentation: no limitations. Information obtained by: patient, RN notes reviewed and old records reviewed. History of Present Illness 60 year old M presents to the emergency department with the chief complaint of recheck of DVT, described as mild (reports pain much improved), Quality is described as aching, and is localized to the right and lower extremity. Patient reports no radiation. Patient started experiencing this day(s) and it has been now resolved. No relieving factors improve symptom(s), and Medication improves symptom(s), (began on Eliquis 2 days ago and symptoms have improved) No exacerbating factors reported . Patient notes no other symptoms.; denies chest pain, cough, fever/chills and shortness of breath. Patient did receive the following treatments prior to arrival, none Related Data Home Medications Medication Instructions Recorded Confirmed acetaminophen 500 mg tablet 1,500 mg PO Q6H PRN tab 05/03/20 03/02/21 bupropion HCl 450 mg 24 hr tablet, 450 mg PO DAILY #90 tab 07/02/20 03/02/21 extended release lansoprazole 30 mg capsule,delayed 30 mg PO .Every other day #90 cap 09/21/20 03/02/21 release finasteride 5 mg tablet 5 mg PO DAILY #90 tab 12/27/20 03/02/21 docusate sodium 50 mg/5 mL oral 100 mg PO DAILY PRN #1000 ml 02/14/21 03/02/21 liquid polyethylene glycol 3350 17 8.5 g PO DAILY PRN #510 g 02/14/21 03/02/21 gram/dose oral powder psyllium husk 3.4 gram/5.4 gram 1 tbsp PO DAILY #660 g 02/14/21 03/02/21 oral powder apixaban 5 mg PO ONCE #74 dose pk 03/02/21 gabapentin 30 mg PO .QHS PRN 03/02/21 03/02/21 Previous Rx's Medication Instructions Recorded bupropion HCl 450 mg 24 hr tablet, 450 mg PO DAILY #90 tab 07/02/20 extended release lansoprazole 30 mg capsule,delayed 30 mg PO .Every other day #90 cap 09/21/20 release finasteride 5 mg tablet 5 mg PO DAILY #90 tab 12/27/20 docusate sodium 50 mg/5 mL oral 100 mg PO DAILY PRN #1000 ml 02/14/21 liquid polyethylene glycol 3350 17 8.5 g PO DAILY PRN #510 g 02/14/21 gram/dose oral powder psyllium husk 3.4 gram/5.4 gram 1 tbsp PO DAILY #660 g 02/14/21 oral powder apixaban 5 mg PO ONCE #74 dose pk 03/02/21 Allergies Allergy/AdvReac Type Severity Reaction Status Date / Time oxybutynin Allergy Severe Hallucinati Verified 03/04/21 11:25 ons/suicida l mirabegron [From Myrbetriq] Allergy Unknown suicidal Verified 03/04/21 11:25 ideations/dreams fentanyl AdvReac Severe HALLUCINATIONS; Verified 03/04/21 11:25 SUICIDAL IDEATION duloxetine [From Cymbalta] AdvReac Intermediate Nausea Verified 03/04/21 11:25 General Stated Complaint: Vascular RENO: 4 Review of Systems Constitutional Constitutional: Reports as per HPI, Denies chills, Denies fever(s), Denies headache(s) and Denies weakness ENT Ears, Nose, Mouth, and Throat: Denies headache(s) Cardiovascular Cardiovascular: Reports as per HPI, Denies chest pain, Denies dyspnea and Denies dyspnea on exertion Respiratory Respiratory: Reports as per HPI, Denies dyspnea and Denies dyspnea on exertion Musculoskeletal Musculoskeletal: Reports as per HPI Integumentary/Breasts Skin/Breast: Reports as per HPI, Denies rash and Denies wounds Neurologic Neurologic: Reports as per HPI, Denies headache(s), Denies paresthesias and Denies weakness COUNT INCLUDES THE [facility] All Active Problems (Updated 03/04/21 @ 11:42 by ROULA Crooks) DVT (deep venous thrombosis) (Chronic) Parkinson's disease (Chronic) Bilateral pallidotomy Obstructive sleep apnea syndrome (Chronic) Unable to tolerate CPAP Hyperlipidemia (Chronic) Prediabetes (Chronic) Major depressive disorder (Chronic) ECT at [facility] – [place] Insomnia (Chronic) Constipation (Acute) Non-alcoholic fatty liver disease (Chronic) Gastroesophageal reflux disease (Chronic) Lumbosacral spondylosis without myelopathy (Chronic) Sensorineural hearing loss, bilateral (Chronic) Medical History Essential hypertension Surgical History History of colonoscopy (~05/11/20) History of revision of total replacement of left hip joint (07/21/19) S/P appendectomy S/P brain surgery Bilateral pallidotomy S/P colonoscopy S/P tonsillectomy S/P vasectomy 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 Sister No problems noted. Son Heart disease Son No problems noted. Son Depression Daughter No problems noted. Daughter No problems noted. Paternal Grandfather Heart disease Paternal Grandmother No problems noted. Maternal Grandfather No problems noted. Maternal Grandmother Depression Social History Smoking/Tobacco Use Status: Former Tobacco Use tobacco type: cigarettes Quit Date: 03/09/06 Pack-years: 25 Smoking risk assessment performed?: Yes Alcohol Intake: never Drug use: Daily Substance use type: marijuana Adopted: No Caregiver/Support person: No Foster care: No Household members: spouse Housing: house Number of Children: 3 number of grandchildren: 1 Communication Needs: Hard of Hearing and Corrective Lenses Do you need help understanding health information?: Rarely Pets and animals: Yes Pets and animals: dog(s) Sexually active: No Do you think of yourself as: straight/heterosexual What is your relationship status?: How often do you talk on the phone with friends or family?: twice per week How often do you get together with friends or relatives?: once per week How often do you attend jain or yazidi services?: decline to answer Do you belong to any clubs or organized social groups?: no Panel score (0-1 are the most socially isolated patients): 2 Tati/Tenriism: No preference Special tati needs: No Seatbelt use: always Helmet use: No Drive intox or ride w/intox driver license agent: No Do you feel safe at home: Yes Do you feel safe in your relationship?: Yes Exam Const General: cooperative, comfortable, no acute distress, well developed, well groomed and ill appearing chronically Nutritional Appearance: well nourished and overweight Orientation: alert and awake Resp Effort & Inspection: normal respiratory effort, able to speak in complete sentences and no respiratory distress Cardio Rate: regular rate Rhythm: regular rhythm Skin General skin exam: no rashes or lesions noted Lesions: no lesions Rashes: no rashes Trauma: no lacerations or abrasions Neuro General: patient alert and patient awake Cognition: normal cognition Speech: speech normal Gait: normal gait (baseline for pain, he ambulates with walker normally) Motor: muscle tone normal throughout Sensory Exam: no sensory deficits noted Psych Appearance: grossly normal and well kempt Mental Status: mental status grossly normal Speech and Movement: speech and movement normal Course Vital Signs Vital signs: Vital Signs Temperature 36.5 C 03/04/21 11:21 Pulse 74 03/04/21 11:21 Respiratory Rate 18 03/04/21 11:21 Blood Pressure 116/71 03/04/21 11:21 Pulse Oximetry 97 12/27/21 11:21 Temperature 36.5 C 03/04/21 11:21 Temperature Source Temporal Artery Scan 03/04/21 11:21 Pulse 74 03/04/21 11:21 Respiratory Rate 18 03/04/21 11:21 Respiratory Effort Non-Labored 03/04/21 11:25 Blood Pressure 116/71 03/04/21 11:21 Blood Pressure Position Sitting 03/04/21 11:21 Pulse Oximetry 97 03/04/21 11:21 Oxygen Delivery Method Room Air 03/04/21 11:21 Oxygen Flow Rate 0 03/04/21 11:21
[2021-03-04 11:36] VITALS: RESP 18
== END 2021-03-04 11:47 | disposition home or self-care (01) ==
PROVIDERS: Emergency Provider Physician Assistant; PCP Nurse Practitioner Family
DX: I82.411 Acute embolism and thrombosis of right femoral vein (principal)

== ENCOUNTER 2021-03-15 00:27 | Outpatient (CLI) | payer OTHER, MEDICARE, SELFPAY ==
--- NOTE | 2021-03-15 07:45 | DI.RAD_ITS ---
Exam(s) XR SHOULDER LT COMPLETE 2+V EXAM: XR SHOULDER LT COMPLETE 2+V INDICATION: left shoulder pain, falls, r/o fracture,s/p reverse arthroplasty,m25.512,. COMPARISON: CT CT UPPER EXTREMITY LT WO from 05/17/2020 TECHNIQUE: 2D digital imaging was performed. FINDINGS: A left reverse shoulder prosthesis has been placed. The alignment of the components appears satisfac tory. There are no abnormal bony lucencies. DATA REPOSITORY: RADIATION DOSE DELIVERED:
== END 2021-03-15 00:47 ==
PROVIDERS: PCP Nurse Practitioner Family; Visit Provider Nurse Practitioner Family
DX: M25.512 Pain in left shoulder (principal); Z96.612 Presence of left artificial shoulder joint
CPT/HCPCS: 73030

== ENCOUNTER 2021-03-29 00:34 | Outpatient (CLI) | payer OTHER, MEDICARE, SELFPAY ==
--- NOTE | 2021-03-29 07:00 | DI.US_ITS ---
Exam(s) US LOWER EXTREMITY VENOUS RT EXAM: US LOWER EXTREMITY VENOUS RT CLINICAL HISTORY: f/u dvt check,i82.401. TECHNIQUE: Lower extremity venous ultrasound performed using grayscale, color-flow, and spectral Do ppler analysis. COMPARISON: US US LOWER EXTREMITY VENOUS RT from 03/04/2021 FINDINGS: The common femoral and profundus femoral veins are no free of thrombus. There is residual partially occlusive thrombus extending from the mid femoral vein through the popliteal vein, proximally 16 cm i n length..The posterior tibial veins and peroneal are patent. No saphenous vein thrombosis or other superficial venous thrombosis is seen. No hematoma or Duarte's cyst is seen. IMPRESSION: Improvement in previously noted deep venous thrombosis, now extending from the mid femoral through po pliteal vein. DATA REPOSITORY:
== END 2021-03-29 00:54 ==
PROVIDERS: PCP Nurse Practitioner Family; Visit Provider Nurse Practitioner
DX: I82.411 Acute embolism and thrombosis of right femoral vein (principal)
CPT/HCPCS: 93971

== ENCOUNTER 2021-04-03 14:50 | Emergency (ER) | payer OTHER, MEDICARE, SELFPAY ==
[2021-04-03 14:53] VITALS: BP 166/85; PULSE 71; RESP 24; TEMP 36.6; O2SAT 97
[2021-04-03 15:00] VITALS: BP 166/85; PULSE 74; RESP 16; O2SAT 96
[2021-04-03 15:15] VITALS: BP 141/74; PULSE 66; RESP 23; O2SAT 96
[2021-04-03 15:27] VITALS: RESP 24
--- NOTE | 2021-04-03 15:27 | ED.GENADUL_ITS ---
Discharge Plan Disposition Patient Disposition: HOME Condition: Stable Discharge Details Clinical Impression: Acute DVT of right tibial vein Primary Care Provider: Heena Martínez ED Provider: Tal Quinones Home Meds and New Rx's Prescriptions: Continued polyethylene glycol 3350 [Miralax] 17 gram/dose powder 8.5 g PO DAILY PRN (Reason: constipation) Qty: 510 RF: 4 docusate sodium 50 mg/5 mL liquid 100 mg PO DAILY PRN (Reason: constipation) Qty: 1000 RF: 4 acetaminophen [Tylenol Extra Strength] 500 mg tablet 1,500 mg PO Q6H PRNRF: 0 apixaban 5 mg tablet 5 mg PO BID Qty: 180 RF: 1 gabapentin 300 mg capsule 300 mg PO QHS PRNRF: 0 medical marijuana RF: 0 lansoprazole [Prevacid] 30 mg capsule,delayed release(DR/EC) 30 mg PO .Every other day Qty: 90 RF: 4 Discharge Instructions Instructions: Deep Vein Thrombosis (ED) Additional Instructions: Please continue to take your Eliquis. Please follow-up with your primary care physician. Return to the ER immediately for any worsening or new concerning symptoms. Referrals: Heena Martínez NP [Primary Care Provider] - Discharge Data Discharge Date/Time-TO BE ENTERED AT DEPARTURE: 04/03/21 16:01 Medical Decision Making 60-year-old male with known right lower extremity DVT, here with persistent swelling of the right lower extremity since initially diagnosed approximately 1 month ago. I reviewed medical record including clinic note from PCP and ultrasound report from 03/29/2021. Ultrasound 03/29/2021 was interpreted by radiology: Impression?improvement in previously noted DVT, now extending from mid femoral through popliteal vein. Patient has no erythema or warmth of the right lower extremity. Distal right lower extremity pulse is strong. Neurovascular intact distally. I called and spoke with KAUSHAL Martínez -she noted concern given increased swelling and potential for ischemia prompting referral to the emergency department. There is no signs of ischemic changes on exam and patient strong pulse. Plan for discharge with outpatient follow-up with PCP and referral to vascular surgery as noted by PCP. Kaushal Martínez will ensure timely followup. HPI General Mode of arrival: ambulatory . Date/Time Provider Initiated Documentation: 04/03/21 14:51 . Limitations to Documentation: no limitations . Information obtained by: patient . HPI Narrative: 60-year-old male with known right lower extremity DVT that was diagnosed 03/04/2021, has been on Eliquis over the past month, continues to have cheif complaint of swelling and associated pain. Patient notes has been taking Eliquis as prescribed. He did have repeat ultrasound done 03/29/2021. Swelling is moderate. No modifiers. No associated redness, warmth or fever. Related Data Home Medications Medication Instructions Recorded Confirmed acetaminophen 500 mg tablet 1,500 mg PO Q6H PRN tab 05/03/20 04/05/21 lansoprazole 30 mg capsule,delayed 30 mg PO .Every other day #90 cap 09/21/20 04/05/21 release docusate sodium 50 mg/5 mL oral 100 mg PO DAILY PRN #1000 ml 02/14/21 04/05/21 liquid polyethylene glycol 3350 17 8.5 g PO DAILY PRN #510 g 02/14/21 04/05/21 gram/dose oral powder apixaban 5 mg tablet 5 mg PO BID #180 tab 03/11/21 04/05/21 gabapentin 300 mg capsule 300 mg PO QHS PRN cap 03/15/21 04/05/21 Previous Rx's Medication Instructions Recorded lansoprazole 30 mg capsule,delayed 30 mg PO .Every other day #90 cap 09/21/20 release docusate sodium 50 mg/5 mL oral 100 mg PO DAILY PRN #1000 ml 02/14/21 liquid polyethylene glycol 3350 17 8.5 g PO DAILY PRN #510 g 02/14/21 gram/dose oral powder apixaban 5 mg tablet 5 mg PO BID #180 tab 03/11/21 Allergies Allergy/AdvReac Type Severity Reaction Status Date / Time oxybutynin Allergy Severe Hallucinati Verified 04/05/21 10:52 ons/suicida l mirabegron [From Myrbetriq] Allergy Unknown suicidal Verified 04/05/21 10:52 ideations/dreams fentanyl AdvReac Severe HALLUCINATIONS; Verified 04/05/21 10:52 SUICIDAL IDEATION duloxetine [From Cymbalta] AdvReac Intermediate Nausea Verified 04/05/21 10:52 General Stated Complaint: Vascular RENO: 3 Review of Systems All systems reviewed & are unremarkable except as noted in HPI and below Constitutional Constitutional: Denies fever(s) Musculoskeletal Musculoskeletal: Denies joint swelling PFSH All Active Problems Acute DVT of right tibial vein (Acute) Deep vein thrombosis (DVT) of right lower extremity (Acute ~02/2021) Parkinson's disease (Chronic) Bilateral pallidotomy Obstructive sleep apnea syndrome (Chronic) Unable to tolerate CPAP Hyperlipidemia (Chronic) Prediabetes (Chronic) Major depressive disorder (Chronic) [place] [facility] [place] Insomnia (Chronic) Constipation (Acute) Non-alcoholic fatty liver disease (Chronic) Gastroesophageal reflux disease (Chronic) Lumbosacral spondylosis without myelopathy (Chronic) Sensorineural hearing loss, bilateral (Chronic) Medical History Essential hypertension Surgical History History of revision of total replacement of left hip joint (07/21/19) S/P appendectomy S/P brain surgery Bilateral pallidotomy S/P colonoscopy (05/11/20) S/P tonsillectomy S/P vasectomy 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 Sister No problems noted. Son Heart disease Son No problems noted. Son Depression Daughter No problems noted. Daughter No problems noted. Paternal Grandfather Heart disease Paternal Grandmother No problems noted. Maternal Grandfather No problems noted. Maternal Grandmother Depression Social History Smoking/Tobacco Use Status: Former Tobacco Use tobacco type: cigarettes Quit Date: 03/09/06 Pack-years: 25 Smoking risk assessment performed?: Yes Alcohol Intake: never Drug use: Occasionally Substance use type: marijuana Adopted: No Caregiver/Support person: No Foster care: No Household members: spouse Housing: house Number of Children: 3 number of grandchildren: 1 Communication Needs: Hard of Hearing and Corrective Lenses Do you need help understanding health information?: Rarely Pets and animals: Yes Pets and animals: dog(s) Sexually active: No Do you think of yourself as: straight/heterosexual What is your relationship status?: How often do you talk on the phone with friends or family?: twice per week How often do you get together with friends or relatives?: once per week How often do you attend taoism or religion services?: decline to answer Do you belong to any clubs or organized social groups?: no Panel score (0-1 are the most socially isolated patients): 2 Tati/Nondenominational: No preference Special tati needs: No Seatbelt use: always Helmet use: No 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 Do you feel safe at home: Yes Do you feel safe in your relationship?: Yes Exam Const General: cooperative and no acute distress HENMT Mouth: moist mucous membranes Eyes Sclera: normal sclerae Resp Auscultation: clear to auscultation bilaterally, no rales, no rhonchi and no wheezes Cardio Rate: regular rate and not tachycardic Rhythm: regular rhythm GI Palpation: soft, not firm, no guarding, no masses, not rigid and nontender Skin General skin exam: no rashes or lesions noted Neuro General: patient alert, patient awake and tone normal Extrem General: calf tenderness on the right and edema Laterality: right Course Vital Signs Vital signs: Vital Signs Temperature 36.6 C 04/03/21 14:53 Pulse 71 04/03/21 14:53 Respiratory Rate 24 04/03/21 14:53 Blood Pressure 166/85 H 04/03/21 14:53 Pulse Oximetry 97 04/03/21 14:53 Temperature 36.6 C 04/03/21 14:53 Temperature Source Skin 04/03/21 14:53 Pulse 71 04/03/21 14:53 Respiratory Rate 24 04/03/21 14:53 Blood Pressure 166/85 H 04/03/21 14:53 Pulse Oximetry 97 04/03/21 14:53 Oxygen Delivery Method Room Air 04/03/21 14:53 Oxygen Flow Rate 0 04/03/21 14:53 Pain Level 5 04/03/21 14:53
[2021-04-03 15:30] VITALS: BP 149/77; PULSE 65; RESP 23; O2SAT 96
[2021-04-03 15:45] VITALS: BP 144/74; PULSE 66; O2SAT 96
== END 2021-04-03 16:01 | disposition home or self-care (01) ==
PROVIDERS: Emergency Provider Student in an Organized Health Care Education/Training Program; PCP Nurse Practitioner Family
DX: I82.441 Acute embolism and thrombosis of right tibial vein (principal); Z79.01 Long term (current) use of anticoagulants
CPT/HCPCS: 99281; 99283

== ENCOUNTER 2021-04-19 01:03 | Outpatient (CLI) | payer OTHER, MEDICARE, SELFPAY ==
--- NOTE | 2021-04-19 11:00 | DI.CT_ITS ---
Exam(s) CT UPPER EXTREMITY LT WO EXAM: CT UPPER EXTREMITY LT WO CLINICAL HISTORY: S/P REVERSE TOTAL SHOULDER, LT, Z96.612, ? OCCULT SCAPULA FX OR LOOSENING. TECHNIQUE: Imaging Protocol: Axial computed tomography images with coronal and sagittal reformatted images were created and reviewed. COMPARISON: CR XR SHOULDER LT COMPLETE 2+V from 03/15/2021 FINDINGS: There is artifact from the patient's shoulder prosthesis and patient motion. Bones: The patient has a left reverse total shoulder replacement. No lucencies are seen about the o rthopedic hardware to suggest loosening or infection. Bony alignment is satisfactory. No acute frac ture or dislocation is identified. The bones are normally mineralized. There are mild degenerative changes seen at the acromioclavicular joint. There is a well corticated osseous density at the infer ior aspect of the glenoid. It appears old. Soft Tissues: Atherosclerosis of the thoracic aorta is noted. The visualized lung olguin are unremar kable. The soft tissues are unremarkable. IMPRESSION: 1. No evidence of an occult fracture. 2. Left reverse total shoulder replacement. No lucencies are seen in or about the orthopedic hardwar e to suggest loosening or infection within the limits of the examination. RADIATION DOSE DELIVERED: 265.12mGy.cm Total DLP 265.12mGy.cm Total DLP DATA REPOSITORY: All CT scans at this facility are submitted to the National Radiology Data Registry (NRDR) Dose Index Registry (DIR) with the [employer] (ACR). RADIATION OPTIMIZATION: All CT scans at this facility use at least one of these dose optimization te chniques: automated exposure control; mA and/or kV adjustment per patient size (includes targeted exa ms where dose is matched to clinical indication); or iterative reconstruction.
== END 2021-04-19 01:23 ==
PROVIDERS: PCP Nurse Practitioner Family; Visit Provider Orthopaedic Surgery
DX: Z96.612 Presence of left artificial shoulder joint (principal); M25.512 Pain in left shoulder; M19.012 Primary osteoarthritis, left shoulder
CPT/HCPCS: 73200

== ENCOUNTER → 2021-12-05 02:58 | Outpatient (CLI) | payer OTHER, MEDICARE, SELFPAY ==
--- NOTE | 2021-12-05 13:15 | DI.RAD_ITS ---
Exam(s) XR SHOULDER RT COMPLETE 2+V EXAM: XR SHOULDER RT COMPLETE 2+V CLINICAL HISTORY: chronic right shoulder pain, limited Range of motion,m25.511,g89.29. TECHNIQUE: 2D digital imaging was performed of the right shoulder. Four images were obtained. AP, Grashey, and Y views were obtained. COMPARISON: No exams were available for comparison FINDINGS: BONES: No acute fracture is present. No bony destructive lesion is seen. JOINTS: No dislocation present. Mild degenerative changes are seen at the acromioclavicular joint. SOFT TISSUE: Normal. IMPRESSION: DJD of the right shoulder. DATA REPOSITORY: RADIATION DOSE DELIVERED:
== END ==
PROVIDERS: PCP Nurse Practitioner Family; Visit Provider Nurse Practitioner Family
DX: G89.29 Other chronic pain (principal); M19.011 Primary osteoarthritis, right shoulder
CPT/HCPCS: 73030

== ENCOUNTER → 2022-01-14 02:22 | Outpatient (CLI) | payer OTHER, MEDICARE, SELFPAY ==
--- NOTE | 2022-01-14 11:10 | ST.MBS_ITS ---
Date of Service Date of service: 01/14/22 Time of Service: 10:30 Modified Barium Swallow Study Findings: Speech Language Pathology Report MODIFIED BARIUM SWALLOW STUDY Patient referred for VFSE/MBSS from Dr. Rice, Neurology given recently noted swallow changes in setting of Parkinson's Disease. Subjective: Patient arrived on time for today's study, unaccompanied. He reports no interim updates. Continues to endorse esopheal stasis and pharyngeal stasis. He feels his reflux has gotten somewhat better now that he has begun to focus on it. Technical issues arose at time of study which prevented us from storing images for later review. HPI & Patient report of function: Mr. Gary is a 61 year-old man with Parkinsons dx since 1990, hypertension, hyperlipidemia, DONTRELL intolerant of CPAP, pre-DM, DVT R leg 02/2021, depression s/p remote ECT in 1997, insomnia, constipation, and GERD. His overall PD progression has been slow. Only in the last year or so have speech or swallowing changes become apparent. Recently re-initiated Sinemet per Dr. Rice's recommendations. Recently he completed PT [facility] program which has helped him to d ecrease falls. IMPRESSIONS: Unable to fully assess pharyngeal phase due to technical difficulties this date with DI systems resulting in inability to review images after study completion, the following assessment is based on real-time observations under fluoroscopy. Swallow safety is largely preserved; swallow efficiency is impaired. Mild chronic oropharyngeal dysphagia in setting of Parkinson's disease. Suspect impact of GERD as well. Characterized primarily by difficulty with mastication, slow and disorganized A/P transit and intermittently delayed swallow onset. Noting possible flash/scant penetration of thin liquids during large volume sequential sips via cup and straw. Results in significant oral residue especially of denser textures requiring multiple swallows to partially clear. Patient appears to be at low risk for potential aspiration PNA and/or pulmonary compromise and low risk for malnutrition, low risk for dehydration. Swallow prognosis is guarded given: Positive prognostic factors: Age, Severity, Time since onset, Family/caregiver support, Negative prognostic factors: Cognitive status, and pending patient/caregiver training in risk management as outlined, including use of trialed compensatory strategies. Patient appears to be a fair/good candidate for behavioral swallow rehabilitation. RECOMMENDATIONS: Diet Texture Recommendation:? IDDSI LEVEL SOLIDS 6-Soft & Bite-Sized Solids WITH ADDED MOISTURE LIQUIDS 0-Thin Liquids Please see further details at?www.iddsi.org http://www.iddsi.org/ MEDICATIONS [Whole ][Cut, as able ][Crushed, as able ]with [0-Thin Liquids][1-Slightly Thick Liquids][2-Mildly Thick Liquids][3-Moderately Thick Liquids][4-Puree] Diet texture modification is per patient's preference; please adjust diet textures at patient's discretion & collaboration with care team. Do not alter medications (e.g., cut)? without advice from your MD or pharmacist. Risk Management Strategies:? Behavioral reflux precautions, including upright position during + 90 mins after meals. Small bites, approx [id number] Small sips, approx 10 mL Alternate solids/liquids as able Multiple swallows per bolus to encourage clearance of pharyngeal stasis/residue Control risk factors for aspiration pneumonia via (a) thorough oral hygiene & (b) maintaining physical mobility as tolerated PLAN: Therapy: Recommend subsequent outpatient session with SOCIAL WORK ADMINISTRATOR to review results of today's exam and reiterate recommendations with present as she is his primary support/caregiver. May consider the following: Further Compensatory Strategy Training Further Training/Education in Risk Management Follow-up exam: Recommend repeat VFSE/MBSS in 6-9 months per best practices for dysphagia monitoring in Parkinson's Disease. Goals: long term goals: Patient will implement risk management behaviors and compensatory strategies to reduce risks of aspiration and risks of pulmonary complications. Short term goals: Patient and caregiver will verbalize understanding r/t education as relates to normal vs disordered swallowing, impact of GERD, PD on swallow function, s/sx aspiration, results of evaluation, relationship between deglutition and swallow function, and rationale for management strategies as recommended. Patient will participate in periodic instrumental swallow assessment to ensure safe diet tolerance and to provide updated risk management recommendations. ----- OBJECTIVE Videofluoroscopic Swallow Evaluation (VFSE/MBSS) was conducted in the lateral projection by Speech-Language Pathologist, in collaboration with Radiologist, to evaluate oropharyngeal swallow function. Anatomic view under fluoroscopy: WFL PO Barium Contrast Trials Oral barium water-soluble contrast was administered as follows: IDDSI Level 0 Varibar thin liquid (40% w/v) IDDSI Level 4 Varibar pudding/pureed/extremely thick (40% w/v) IDDSI Level 7 Regular Solid: 1/2 arthur cracker coated in 3 mL Varibar pudding 13 mm barium tablet taken with Thin Liquids. ORAL Impairment Component 1?Lip Closure 0 = No labial escape Component 2?Tongue Control During Bolus Hold 1 = Escape to lateral buccal cavity/floor of mouth (FOM) Component 3?Bolus Preparation/Mastication 1 = Slow prolonged chewing/mashing with complete re-collection Component 4?Bolus Transport/Lingual Motion 3 = Repetitive/disorganized tongue motion Component 5 ? Oral Residue 2 = Residue collection on oral structures (liquids<solids/purees) Component 6?Initiation of Pharyngeal Swallow 1 = Bolus head in valleculae PHARYNGEAL Impairment Component 7?Soft Palate Elevation 0 = No bolus between soft palate (SP)/pharyngeal wall (PW) Component 8?Laryngeal Elevation Unable to adequately assess without ability to review images in slow speed Component 9?Anterior Hyoid Excursion Unable to adequately assess without ability to review images in slow speed Component 10?Epiglottic Movement 0 = Complete inversion Component 11?Laryngeal Vestibular Closure ? Height of Swallow Unable to adequately assess without ability to review images in slow speed Component 12?Pharyngeal Stripping Wave Unable to adequately assess without ability to review images in slow speed Component 13?Pharyngeal Contraction ( A/P VIEW ONLY ) DNT Component 14?Pharyngoesophageal Segment Opening Unable to adequately assess without ability to review images in slow speed Component 15 ? Tongue Base (TB) Retraction Unable to adequately assess without ability to review images in slow speed Component 16 ? Pharyngeal Residue 1 = Trace residue within or on pharyngeal structures ESOPHAGEAL Impairment Component 17?Esophageal Clearance Upright Position DNT Trialed Compensatory Strategies & Outcome: Maneuvers Successful (+) Unsuccessful (-) Postures Successful (+) Unsuccessful (-) 3 second Preparatory Set? ? +/- Chin Tuck Posture? ? Cough? ? Posterior Head tilt? Reflexive? Cued? Throat Clear? ? Head Tilt to? Reflexive? Left? Cued? Right? ? Saliva swallow? + Head Turn/Rotate to? ? Supraglottic Swallow? Left? ? Super-supraglottic Swallow? Right? ? Bolus Modifications Successful (+) Unsuccessful (-) Delivery/Alternating Consistencies ? Follow with Liquid Wash ? Follow with Solid Bolus? Delivery/Via Straw? ? +/- Reduced Volume? ? + Reduced Rate of Intake? ? + Increased Viscosity? ? Other:?? ? Thank you for allowing us to take part in this patient's care. Please feel free to contact the [facility] Speech Language Pathology Department with any questions/concerns. Coding CPT Codes MOTION FLUOROSCOPY/SWALLOW - [id number] ([id number])
[2022-01-14] MEDS: Barium Sulfate Oral Paste 40% W/V 230 ML TUBE 13 ML PO (12:09)
[2022-01-14] MEDS: Barium Sulfate 700 MG TAB PO (12:12)
[2022-01-14] MEDS: Barium Sulfate 81% w/w for Oral Suspension 148 GM BTL PO (12:13)
== END ==
PROVIDERS: PCP Nurse Practitioner Family; Visit Provider Psychiatry & Neurology Neurology
DX: G20 Parkinson's disease (principal); R13.12 Dysphagia, oropharyngeal phase
CPT/HCPCS: 92611

== ENCOUNTER 2023-04-22 09:44 | Outpatient (CLI) | payer OTHER, MEDICARE, SELFPAY ==
[2023-04-22 09:02] LABS: Abs Immature Grans 0.01 10^3/uL (0.0-0.06); Absolute Basophil Count 0.06 10^3/uL (0.0-0.2); Absolute Eosinophil Count 0.05 10^3/uL (0.0-0.7); Absolute Lymphocyte Count 1.52 10^3/uL (1.2-3.4); Absolute Monocyte Count 0.87 10^3/uL (0.1-0.8); Basophils % 0.8; Eosinophils % 0.7; HCT 47.9 % (40.0-50.0); HGB 16.1 g/dL (13.5-17.5); Immature Grans % 0.1; Lymphocytes % 20.2; MCH 29.8 pg (27.0-33.0); MCHC 33.6 % (32.0-36.0); MCV 89 fL (80-95); MPV 9.2 fL (8.0-11.0); Monocytes % 11.6; Neutrophils % 66.6; Platelet Count 203 10^3/uL (130-400); RBC 5.41 10^6/uL (4.36-5.78); RDW 12.4 % (11.8-14.1); RDW-SD 39.9 fL; WBC 7.51 10^3/uL (4.4-10.8)
[2023-04-22 09:51] LABS: Hemoglobin A1C 5.9 % (<5.7)
[2023-04-22 10:07] LABS: ALT 25 U/L (16-63); Albumin 3.7 g/dL (3.4-5.0); Alkaline Phosphatase 73 U/L (46-116); Anion Gap 10.7 mmol/L (3-11); BUN 17 mg/dL (7-18); Bilirubin, Total 0.6 mg/dL (0.2-1.0); CO2 25.3 mmol/L (21.0-32.0); Calcium 9.1 mg/dL (8.5-10.1); Chloride 107 mmol/L (98-107); Glucose 105 mg/dL (74-106); Potassium 4.4 mmol/L (3.5-5.1); Sodium 143 mmol/L (136-145); TSH (W/Ref FT4) 2.99 uIU/mL (0.36-3.74); Total Protein 6.6 g/dL (6.4-8.2)
[2023-04-22 10:15] LABS: AST 11 U/L (15-37)
[2023-04-22 19:07] LABS: PSA, Screening 2.3 ng/mL (<=4.5)
[2023-04-22 20:55] LABS: Hepatitis C Ab w Rflx HCV PCR Negative (Negative)
== END 2023-04-22 09:45 | disposition home or self-care (01) ==
LOC: LBO 09:44
PROVIDERS: PCP Nurse Practitioner Family; Visit Provider Nurse Practitioner Family
DX: Z00.00 Encounter for general adult medical examination without abnormal findings (principal); I10 Essential (primary) hypertension; E78.5 Hyperlipidemia, unspecified; R73.03 Prediabetes; Z12.5 Encounter for screening for malignant neoplasm of prostate; Z11.59 Encounter for screening for other viral diseases; N40.1 Benign prostatic hyperplasia with lower urinary tract symptoms
CPT/HCPCS: 36415; 80053; 84153; 86803; 83036; 84443; 85025; 85379

== ENCOUNTER 2023-05-27 13:31 | Outpatient (REF) | payer OTHER, MEDICARE, SELFPAY ==
[2023-05-27 14:53] LABS: Bilirubin Negative (Negative); Blood Negative (Negative); Clarity Clear (Clear); Glucose Negative (Negative); Ketones Negative (Negative); Leukocyte Esterase Negative (Negative); Nitrite Negative (Negative); Specific Gravity 1.025 (1.005-1.025); pH 7.5 (5-8)
== END 2023-05-27 13:32 | disposition home or self-care (01) ==
LOC: NCHCN 13:31
PROVIDERS: PCP Nurse Practitioner Family; Visit Provider Nurse Practitioner Family
DX: N40.1 Benign prostatic hyperplasia with lower urinary tract symptoms (principal); N13.8 Other obstructive and reflux uropathy
CPT/HCPCS: 81003

== ENCOUNTER 2024-04-14 06:12 | Day surgery (SDC) | payer OTHER, MEDICARE, SELFPAY ==
[2024-04-14 06:29] VITALS: BP 137/84; PULSE 68; RESP 24; TEMP 36.5; O2SAT 98
[2024-04-14] MEDS: Lactated Ringers 1,000 ML 80 ML IV (06:43)
[2024-04-14 06:45] VITALS: BP 137/84; PULSE 68; RESP 24; TEMP 36.5; O2SAT 98
--- NOTE | 2024-04-14 06:58 | W.PM.HP.N ---
Date of service: 04/14/24 Time of Service: 06:58 Assessment and Plan Assessment and plan (1) Parkinson's disease: Status: Chronic (2) Urgency incontinence: Status: Acute Assessment and plan: We will move forward with a cystoscopy and transurethral injection of Botox into the detrusor muscle. We discussed potential side effects including urinary retention, continued incontinence, infection and hematuria. History of Present Illness History of Present Illness Chief Complaint: Urinary incontinence Narrative: This is a 63-year-old gentleman who has a history of Parkinson's disease. He has urinary frequency, urgency and urgency incontinence. He did have 1 episode of urinary retention following a surgical procedure, but for the most part, he is able to empty his bladder quite well. He is unable to tolerate beta 3 agonists or anticholinergics. He has had no benefit from alpha blockers. He presents for an injection of Botox into the detrusor muscle. Review of Systems Narrative: No fevers or chills No vision change or dysphasia No diabetes or thyroid dysfunction Sleep apnea. No hemoptysis No chest pain or palpitations GERD. No hepatitis, ulcers, jaundice Tremors, Parkinsons. No seizures or strokes Hx DVT. No bleeding disorders or anemia No gout PFSH All Active Problems (Updated 04/14/24 @ 07:04 by Andres Sheridan MD) Urgency incontinence (Acute) Obesity (BMI 30-39.9) (Chronic) BPH w urinary obs/LUTS (Chronic) Chronic anticoagulation (Chronic) Eliquis for hx of unprovoked RLE DVT Memory loss (Chronic) Right rotator cuff tear (Chronic ~11/2021) Dysphagia (Chronic) Frequent falls (Chronic) Constipation (Chronic) Prediabetes (Chronic) Major depressive disorder (Chronic) [place] [facility] [place] Sensorineural hearing loss, bilateral (Chronic) Parkinson's disease (Chronic) Bilateral pallidotomy Obstructive sleep apnea syndrome (Chronic) Unable to tolerate CPAP Non-alcoholic fatty liver disease (Chronic) Insomnia (Chronic) Hyperlipidemia (Chronic) Gastroesophageal reflux disease (Chronic) Lumbosacral spondylosis without myelopathy (Chronic) Medical History (Updated 04/14/24 @ 07:04 by Andres Sheridan MD) Risk for falls Deep vein thrombosis (DVT) of right lower extremity (~02/2021) Essential hypertension Surgical History Status post reverse arthroplasty of left shoulder (08/02/20) And left shoulder arthroscopic biopsy 08/29/21 for continued pain History of revision of total replacement of left hip joint (07/21/19) S/P vasectomy S/P tonsillectomy 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 Sister No problems noted. Son Heart disease Son No problems noted. Son Depression Daughter No problems noted. Daughter No problems noted. Paternal Grandfather Heart disease Paternal Grandmother No problems noted. Maternal Grandfather No problems noted. Maternal Grandmother Depression Social History (Updated 02/25/24 @ 11:11 by Madelin Cade) Smoking/Tobacco Use Status: Former Tobacco Use tobacco type: cigarettes Quit Date: 03/09/06 Pack-years: 25 Tobacco: How many years used: 20 Quit status: has quit before Smoking risk assessment performed?: Yes Alcohol Intake: current Alcohol Intake frequency: holidays/special occasions only Drug use: Occasionally Substance use type: marijuana Adopted: No Caregiver/Support person: No Foster care: No Household members: spouse Housing: house Number of Children: 3 number of grandchildren: 6 Communication Needs: Hard of Hearing and Corrective Lenses Education Level: high school Do you need help understanding health information?: Rarely Pets and animals: Yes Pets and animals: dog(s) Sexually active: No Do you think of yourself as: straight/heterosexual What is your relationship status?: How often do you talk on the phone with friends or family?: twice per week How often do you get together with friends or relatives?: once per week How often do you attend zoroastrian or roman catholic services?: decline to answer Do you belong to any clubs or organized social groups?: no Panel score (0-1 are the most socially isolated patients): 2 Tati/Oriental Orthodox: No preference Special tati needs: No Seatbelt use: always Helmet use: No Drive intox 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 Do you feel safe at home: Yes Do you feel safe in your relationship?: Yes Additional Social history: UTAP Meds Allergies and Home Medications Allergies Allergy/AdvReac Type Severity Reaction Status Date / Time oxybutynin Allergy Severe Hallucinati Verified 04/14/24 06:27 ons/suicida l mirabegron (From Myrbetriq) Allergy Unknown suicidal Verified 04/14/24 06:27 ideations/dreams fentanyl AdvReac Severe HALLUCINATIONS; Verified 04/14/24 06:27 SUICIDAL IDEATION duloxetine (From Cymbalta) AdvReac Intermediate Nausea Verified 04/14/24 06:27 Home Medications ?Medication ?Instructions ?Recorded ?Confirmed ?Type Medical Marijuana 10/14/17 04/15/18 Clinic polyethylene glycol 3350 17 8.5 g PO DAILY PRN constipation 02/14/21 04/14/24 Rx gram/dose oral powder (Miralax) #510 grams apixaban 5 mg tablet 5 mg PO BID #180 tabs 12/28/23 04/11/24 Rx citalopram 10 mg tablet 10 mg PO DAILY #90 tabs 02/24/24 04/07/24 Rx lansoprazole 30 mg capsule,delayed 30 mg PO DAILY #90 caps 02/24/24 04/14/24 Rx release (Prevacid) citalopram 10 mg tablet mg 04/14/24 History Exam Const General: cooperative Neck Neck: supple Resp Effort & Inspection: normal respiratory effort Auscultation: clear to auscultation bilaterally Cardio Rate: regular rate Rhythm: regular rhythm GI Palpation: soft Neuro General: patient alert and patient oriented x3 Motor: tremor Results Last Vital Signs Temp 36.5 C 04/14/24 06:45 Pulse 68 04/14/24 06:45 Resp 24 04/14/24 06:45 BP 137/84 04/14/24 06:45 Pulse Ox 98 04/14/24 06:45 Time Spent Time spent with Patient: <40 minutes Time was spent: referring, communicating with other health children's zoo caretaker and counseling the patient
--- NOTE | 2024-04-14 07:01 | ANES.PREOP_ITS ---
General Info Date of Service Date Performed: 04/14/24 Height: 5 ft 7.25 in Weight: 123.3 kg Body Mass Index (BMI): 42.3 Surgical Procedure: Operation Date: 04/14/24 07:40 Proposed Procedure Side Surgeon p Cystoscopy/Transurethral Injection of Botox Andres Sheridan MD Meds Allergies and Home Medications Allergies Allergy/AdvReac Type Severity Reaction Status Date / Time oxybutynin Allergy Severe Hallucinati Verified 04/14/24 06:27 ons/suicida l mirabegron (From Myrbetriq) Allergy Unknown suicidal Verified 04/14/24 06:27 ideations/dreams fentanyl AdvReac Severe HALLUCINATIONS; Verified 04/14/24 06:27 SUICIDAL IDEATION duloxetine (From Cymbalta) AdvReac Intermediate Nausea Verified 04/14/24 06:27 Home Medication ?Medication ?Instructions ?Recorded polyethylene glycol 3350 17 8.5 g PO DAILY PRN constipation 02/14/21 gram/dose oral powder (Miralax) #510 grams apixaban 5 mg tablet 5 mg PO BID #180 tabs 12/28/23 citalopram 10 mg tablet 10 mg PO DAILY #90 tabs 02/24/24 lansoprazole 30 mg capsule,delayed 30 mg PO DAILY #90 caps 02/24/24 release (Prevacid) citalopram 10 mg tablet mg 04/14/24 Current Visit Medications: Current Medications Generic Name Dose Route Start Last Admin Trade Name Freq PRN Reason Stop Dose Admin OnabotulinumtoxinA 200 units/ 0 units 04/14/24 06:00 Sodium Chloride 20 ml IJ 04/14/24 23:59 PREOP CHARBEL Ringer's Solution 1,000 mls @ 80 mls/hr 04/14/24 06:30 04/14/24 06:43 IV 05/14/24 06:29 80 mls/hr INFUSION CHARBEL Administration Cefazolin Sodium/Dextrose 2 gm in 50 mls @ 100 mls/hr 04/14/24 06:00 Ancef Duplex IVPB 04/14/24 23:59 PREOP CHARBEL IV Miscellaneous Supplies 1 each 04/14/24 06:00 Iv Access IV 04/14/24 23:59 DIRECTED CHARBEL Sodium Chloride 0 ml 04/14/24 06:00 Normal Saline Flush 10 Ml Syr IV 04/14/24 23:59 PRN PRN Sodium Chloride 0 ml 04/14/24 06:00 Normal Saline 10 Ml Vial IJ 04/14/24 23:59 DIRECTED PRN Sterile Water 0 ml 04/14/24 06:00 Water,Injection,Sterile 10 Ml Vial IJ 04/14/24 23:59 DIRECTED PRN PFSH Active Problems Active Problems: Problem Status Onset Code Obesity (BMI 30-39.9) Chronic E66.9 BPH w urinary obs/LUTS Chronic N40.1, N13.8 Chronic anticoagulation Chronic Z79.01 Memory loss Chronic R41.3 Right rotator cuff tear Chronic ~11/2021 M75.101 Dysphagia Chronic R13.10 Frequent falls Chronic R29.6 Constipation Chronic K59.00 Prediabetes Chronic R73.03 Major depressive disorder Chronic F32.9 Sensorineural hearing loss, bilateral Chronic H90.3 Parkinson's disease Chronic G20 Obstructive sleep apnea syndrome Chronic G47.33 Non-alcoholic fatty liver disease Chronic K76.0 Insomnia Chronic G47.00 Hyperlipidemia Chronic E78.5 Gastroesophageal reflux disease Chronic K21.9 Lumbosacral spondylosis without myelopathy Chronic M47.817 Medical History Medical History (Updated 04/14/24 @ 07:04 by Andres Sheridan MD) Risk for falls Deep vein thrombosis (DVT) of right lower extremity (~02/2021) Essential hypertension Surgical History Surgical History Status post reverse arthroplasty of left shoulder (08/02/20) And left shoulder arthroscopic biopsy 08/29/21 for continued pain History of revision of total replacement of left hip joint (07/21/19) S/P vasectomy S/P tonsillectomy Status post total replacement of left hip (08/25/08) S/P colonoscopy (05/11/20) S/P appendectomy S/P brain surgery Bilateral pallidotomy Tobacco Smoking/Tobacco Use Status: Former Tobacco Use Passive smoking exposure: Yes Alcohol Alcohol Intake: current Alcohol intake frequency: holidays/special occasions only Substance Use Substance use: Occasionally Substance use type: marijuana Vital Signs and Lab Results Vital Signs Most Recent Vital Signs in EMR: Most Recent Vital Signs Temp Pulse Resp BP Pulse Ox 36.5 C 68 24 137/84 98 04/14/24 06:45 04/14/24 06:45 04/14/24 06:45 04/14/24 06:45 04/14/24 06:45 Lab Results Blood Type / Crossmatch: 2 No Data to Display Complete Blood Count: 2 No Data to Display Complete Metabolic Panel: 2 No Data to Display Liver Function Panel: 2 No Data to Display Coagulation Panel: 2 No Data to Display Cardiac Panel: 2 No Data to Display Arterial Blood Gas: 2 No Data to Display Venous Blood Gas: 2 No Data to Display Pancreas Panel: 2 No Data to Display Thyroid Panel: 2 No Data to Display Infectious Disease: 2 No Data to Display Blood Cultures: 2 No Data to Display Toxicology Panel: 2 No Data to Display Anesthesia Assessment and Plan Anesthesia History Personal History: No History of Anesthesia Complications Family History: No Family History of Anesthesia Complications Exercise Tolerance Exercise Tolerance: Metabolic Equivalents>4 Pertinent Negatives Pertinent Negatives: No Symptoms of GERD Cardiac & Pulmonary Exam Cardiac Exam: Normal S1/S2 Heart Sounds Pulmonary Exam: Clear Bilateral Breath Sounds Implantable Cardiac Device Does patient have a Pacemaker or an ICD?: No Airway Exam Known Difficult Airway: No Mallampati Class: 4 Mouth Opening: Normal (> 3cm) Thyromental Distance: Greater than 3 cm Facial Hair: Full [place]ck Range of Motion: Limited ROM Neck Circumference: Normal Teeth Condition: Edentulous (except for noted teeth) Tooth Numberin 1. worn tooth 2. worn tooth ASA Classification ASA Score: ASA 3 Emergency Case?: No NPO Status NPO Status: NPO Clears >2 hours, Solids >8 hours Anesthesia Plan Resuscitation Status: Full Code Anesthesia Technique: General Anesthesia Airway Planned: Natural Airway Monitors Used: Standard Monitors Preoperative Comments:: GERD well controlled. discussed GETA as backup with patient and spouse, agreed,
[2024-04-14 07:06] VITALS: BMI 42.3
[2024-04-14] MEDS: ceFAZolin 2 GM/50 ML BAG IVPB (07:44)
[2024-04-14] MEDS: Lidocaine 2% Jelly 11 ML SYR (07:49)
--- NOTE | 2024-04-14 07:59 | W.PM.DSUDISC ---
Date of service: 04/14/24 Discharge Plan Disposition Patient Disposition: Home Discharge Details Reason For Visit: cystoscopy Attending Provider: Andres Sheridan Primary Care Provider: Heena Martínez Home Meds and New Rx's Prescriptions: No Action citalopram 10 mg tablet 10 mg PO DAILY Qty: 90 3RF lansoprazole [Prevacid] 30 mg capsule,delayed release(DR/EC) 30 mg PO DAILY Qty: 90 3RF polyethylene glycol 3350 [Miralax] 17 gram/dose powder 8.5 g PO DAILY PRN (Reason: constipation) Qty: 510 4RF Patient Comments: not taking medical marijuana 0RF apixaban 5 mg tablet 5 mg PO BID Qty: 180 3RF Rx Instructions: Take 1 tablet twice a day citalopram 10 mg tablet Patient Comments: TAKE ONE TABLET BY MOUTH EVERY DAY Discharge Instructions Additional Instructions: OK to restart anticoagulants call 1 week with progress report Discharge Orders Discharge Orders: Discharge Order (Routine); Ordered 04/14/24 Ordered By: Andres Sheridan Discharge Data Discharge Comment: pt must void prior to discharge DS: Diagnosis Discharge Diagnosis (1) Parkinson's disease: Status: Chronic (2) Urgency incontinence: Status: Acute
--- NOTE | 2024-04-14 08:01 | W.PM.OP ---
Operative Note Operative Note PRE-OP DIAGNOSIS: Urgency Inncontinence POST-OP DIAGNOSIS: same PROCEDURE: cystoscopy with transurethral injection of Botox into the detrusor SURGEON: Andres Sheridan ANESTHESIA TYPE: Local By Surgeon and General:No Airway Refer to Anesthesia Record ESTIMATED BLOOD LOSS: 5 PATHOLOGY: none sent COMPLICATIONS: None Patient was transported to: same day Patient's condition: stable Implants: 200 Units Botox injected into detrusor Indications: This is a 63-year-old gentleman who has a history of Parkinson's disease. He has lower urinary tract symptoms including urinary frequency and urgency. He is not able to tolerate either anticholinergics or beta 3 agonists. He has failed behavioral modification. He presents for an injection of Botox into the detrusor muscle. Findings: No papillary or nodular bladder lesions Procedure Description: The patient was given a dose of antibiotics and brought to the operating room on 04/14/2024. After successful induction of general anesthesia without intubation, he was placed in a dorsal lithotomy position. His genitalia is prepped and draped. 2% Xylocaine jelly was instilled into the urethra to act as a local anesthetic. A 20 [place] urethrotome sheath was passed through the urethra into the bladder. Using a transurethral injection system, we injected a total of 200 units of Botox into the detrusor muscle. We mixed the Botox in a 20 mL solution and injected 1 mL on the posterior bladder wall in 20 different locations. We avoided the ureteral orifices and trigone with our injection sites The bladder was then emptied and the urethrotome was removed. The patient tolerated the procedure well with no complications. Date of Procedure: 04/14/24
[2024-04-14 08:06] VITALS: BP 101/66; PULSE 50; RESP 14; TEMP 36.4; O2SAT 94
[2024-04-14 08:34] VITALS: BP 143/81; PULSE 57; RESP 18; TEMP 36.4; O2SAT 96
--- NOTE | 2024-04-14 08:45 | W.ANESPOSTOP ---
Postoperative Evaluation Date, Time and Location Date Performed: 04/14/24 Time Performed: 08:06 Patient Location: Day Surgery Unit Vital Signs Most Recent Imported Vital Signs: Most Recent Vital Signs Temp Pulse Resp BP Pulse Ox 36.4 C L 57 L 18 143/81 H 96 04/14/24 08:34 04/14/24 08:34 04/14/24 08:34 04/14/24 08:34 04/14/24 08:34 Pain Score Most Recent Pain Score: Most Recent Pain Score Pain Level 0 04/14/24 08:34 Assessment Mental Status: Awake (Alert & Oriented to Patient Baseline) Airway and Respiratory Function: Patent airway with normal (patient baseline) respiratory exam Cardiovascular Function: Hemodynamically Stable Hydration Status: Adequately Hydrated Nausea & Vomiting: No Nausea or Vomiting Pain: Pt. Denies Any Pain Peripheral Nerve Block: Patient did not receive a nerve block
== END 2024-04-14 09:16 | disposition home or self-care (01) ==
PROVIDERS: PCP Nurse Practitioner Family; Visit Provider Urology
PROC: (CPT 52287; principal; 2024-04-14 07:30)
DX: N32.81 Overactive bladder (principal); G20.A1 Parkinson's disease without dyskinesia, without mention of fluctuations; R35.0 Frequency of micturition; N39.41 Urge incontinence
CPT/HCPCS: 52287; J0585; J0690; J2704

== ENCOUNTER 2024-12-26 14:15 | Emergency (ER) | payer OTHER, MEDICARE, SELFPAY ==
--- NOTE | 2024-12-26 14:15 | DI.CT_ITS ---
Exam(s) CT CHEST/ABD/PEL W EXAM: CT CHEST/ABD/PEL W CLINICAL HISTORY: fall, R. rib/RUQ pain, on eliquis. TECHNIQUE: Imaging Protocol: Axial computed tomography images with coronal and sagittal reformatted images were created and reviewed. Computer aided detection (CAD) was utilized. CONTRAST MATERIAL: Intravenous: Omnipaque 350 Contrast volume:100 ml Oral: no COMPARISON: CT CT renal colic wo from 09/26/2018 CR XR CHEST 2V PA LATERAL from 02/17/2020 FINDINGS: CHEST: Pulmonary parenchyma: No consolidation. No dominant measurable mass. Tracheobronchial tree: No bronchiectasis. No mucous plugging.No bronchial wall thickening. Pleura: No effusion or pneumothorax. Mediastinum: Within normal limits. Pulmonary arteries: No visible emboli. Cardiovascular: No pericardial effusion. Thoracic aorta non-dilated. Bones: Left shoulder prosthesis. No lytic or blastic lesions. Degenerative changes and mild anterior wedging in the mid thoracic spine which appears stable when compared with previous chest x-ray. Soft tissues: Unremarkable. ABDOMEN and PELVIS: Liver: Normal density. No suspicious mass. Gallbladder and biliary tract: No evidence of stones or wall thickening. No biliary dilatation. Pancreas: Normal density, no abnormal calcifications or inflammatory process. Spleen: Normal. Kidneys: Normal size, contour and axis. No radiodense stones. No obstructive uropathy. No suspicious masses seen. Adrenal glands: No masses seen. Aorta: Abdominal portion non-dilated. Lymph nodes: Within normal limits. Soft tissues: Bilateral fat containing inguinal hernias. Mild soft tissue edema in the lateral left hip. No focal hematoma. Bladder: Unremarkable. Bowel: No obstruction or bowel wall thickening. The appendix is normal. Normal quantity of stool. Peritoneal cavity: No ascites. No focal collection. No mesenteric inflammatory response. No free air. Bones: Left hip prosthesis. Reproductive organs: Unremarkable for age. IMPRESSION: No acute abnormality in the chest, abdomen or pelvis. RADIATION DOSE DELIVERED: Total DLP DATA REPOSITORY: All CT scans at this facility are submitted to the National Radiology Data Registry (NRDR) Dose Index Registry (DIR) with the [employer] (ACR). RADIATION OPTIMIZATION: All CT scans at this facility use at least one of these dose optimization techniques: automated exposure control; mA and/or kV adjustment per patient size (includes targeted exams where dose is matched to clinical indication); or iterative reconstruction.
[2024-12-26 14:16] VITALS: BP 188/86; PULSE 71; RESP 18; TEMP 37.1; O2SAT 97
--- NOTE | 2024-12-26 14:24 | W.ED.GENAD ---
Discharge Plan Disposition Patient Disposition: Home Condition: Stable Discharge Details Clinical Impression: Frequent falls, Contusion of rib on right side Primary Care Provider: Heena Martínez ED Provider: Cyndi Warner Home Meds and New Rx's Prescriptions: No Action citalopram 10 mg tablet 10 mg PO DAILY Qty: 90 3RF lansoprazole [Prevacid] 30 mg capsule,delayed release(DR/EC) 30 mg PO DAILY Qty: 90 3RF polyethylene glycol 3350 [Miralax] 17 gram/dose powder 8.5 g PO DAILY PRN (Reason: constipation) Qty: 510 4RF Patient Comments: not taking medical marijuana 0RF apixaban 5 mg tablet 5 mg PO BID Qty: 180 3RF Rx Instructions: Take 1 tablet twice a day Discharge Instructions Instructions: Rib Fracture or Bruised Rib ED Additional Instructions: You were seen in the emergency department today for evaluation after a fall with right sided chest/rib pain. In our department you had a full physical examination performed, and had imaging studies that were negative for severe injury such as broken bones or internal bleeding. You likely have a bruised rib. You can take Tylenol, 650-1000 milligrams every 6 hours as needed for pain. I do recommend that you obtain Lidoderm patches and place those over the area of maximal pain. You performed well on your incentive spirometry, please use that machine to take very large breaths 3-5 times in a row at least 3 or 4 times per day to prevent pneumonia. You can use a pillow to brace against your ribs during coughing to prevent pain. Please follow-up with your primary care provider in the next few days to discuss this visit and any symptoms that change, worsen, or persist. Thank you for allowing us to be part of your care. Discharge Data Discharge Date/Time-TO BE ENTERED AT DEPARTURE: 12/26/24 16:45 HPI General Mode of arrival: EMS. Date/Time Provider Initiated Documentation: 12/26/24 14:22. Limitations to Documentation: no limitations. Information obtained by: patient, EMS and old records reviewed. HPI Narrative: This is a 64-year-old male patient with a past medical history significant for chronic anticoagulation, Parkinson's disease, DONTRELL, hyperlipidemia, and chronic back pain presenting for evaluation after a fall. The patient reports that he was trying to adjust a pillow behind him today, and overextended when he pulled the pill out and fell, landing on his right side. He had pain in his right upper quadrant of his abdomen and lateral right chest. He states that he did not strike his head or lose consciousness during this fall, but could not get up off the ground. He otherwise states that he has not sustained any new injuries. The patient does endorse multiple falls yesterday and the day before, including 1 while he was walking up a large hill. States that he has not taken any medications for management of his pain. Related Data Home Medications ?Medication ?Instructions ?Recorded ?Confirmed polyethylene glycol 3350 17 8.5 g PO DAILY PRN constipation 02/14/21 12/26/24 gram/dose oral powder (Miralax) #510 grams Held on 12/26/24. Instructions: Pt Stopped/Never Started apixaban 5 mg tablet 5 mg PO BID #180 tabs 12/28/23 12/26/24 citalopram 10 mg tablet 10 mg PO DAILY #90 tabs 02/24/24 08/29/24 lansoprazole 30 mg capsule,delayed 30 mg PO DAILY #90 caps 02/24/24 12/26/24 release (Prevacid) Previous Rx's ?Medication ?Instructions ?Recorded polyethylene glycol 3350 17 8.5 g PO DAILY PRN constipation 02/14/21 gram/dose oral powder (Miralax) #510 grams Held on 12/26/24. Instructions: Pt Stopped/Never Started apixaban 5 mg tablet 5 mg PO BID #180 tabs 12/28/23 citalopram 10 mg tablet 10 mg PO DAILY #90 tabs 02/24/24 lansoprazole 30 mg capsule,delayed 30 mg PO DAILY #90 caps 02/24/24 release (Prevacid) Allergies Allergy/AdvReac Type Severity Reaction Status Date / Time oxybutynin Allergy Severe Hallucinati Verified 12/26/24 14:22 ons/suicida l mirabegron (From Myrbetriq) Allergy Unknown suicidal Verified 12/26/24 14:22 ideations/dreams fentanyl AdvReac Severe HALLUCINATIONS; Verified 12/26/24 14:22 SUICIDAL IDEATION duloxetine (From Cymbalta) AdvReac Intermediate Nausea Verified 12/26/24 14:22 General Stated Complaint: Fall/Non TraumaCriteria RENO: 3 Exam Narrative Exam Narrative: Gen: awake and alert, in no apparent distress. Appears well nourished. HEENT: PERRL, EOMs full and without nystagmus. External ears and nose normal, mucous membranes moist. Scalp atraumatic Neck: Supple, full range of motion, no midline cervical spine pain or step-offs Lungs: No increased work of breathing, lung sounds clear and equal bilaterally without wheezes, rhonchi, or rales. CV: Heart with regular rate and rhythm, no murmurs auscultated. Strong and symmetrical radial pulses. The patient has tenderness along the lateral inferior right ribs without crepitus, deformity, or overlying skin changes Abdomen: Soft, nondistended, tender to palpation in the right upper quadrant without rigidity, rebound, or guarding no rigidity, rebound tenderness, or guarding. MSK: No joint swelling, no redness. Full ROM without limitation, no external traumatic findings. No T or L-spine tenderness or step-offs, pelvis stable to AP compression Skin: No rashes or lesions to visualized skin. Normal color, warm, and dry. Neuro: Cranial nerves II-XII intact and symmetrical bilaterally. 5/5 strength in all muscle groups x4 extremities. No sensory deficits. Psych: Appropriate for situation. Course Vital Signs Vital signs: Vital Signs Temperature 37.1 C 12/26/24 14:16 Pulse 71 12/26/24 14:16 Respiratory Rate 18 12/26/24 14:16 Blood Pressure 188/86 H 12/26/24 14:16 Pulse Oximetry 97 12/26/24 14:16 Temperature 37.1 C 12/26/24 14:16 Temperature Source Tympanic 12/26/24 14:16 Pulse 71 12/26/24 14:16 Respiratory Rate 18 12/26/24 14:16 Blood Pressure 188/86 H 12/26/24 14:16 Pulse Oximetry 97 12/26/24 14:16 Pain Level 6 12/26/24 14:16 Medical Decision Making This is a 64-year-old male patient presenting for evaluation after multiple falls. Differential includes but is not limited to traumatic injury, including rib fracture, pulmonary contusion, solid organ injury including liver laceration, hollow viscus injury. Certainly considered contusion, sprain/strain, cannot rule out head strike given the numerous falls, patient with poor recollection of details of some falls over the last few days, and considered intracranial hemorrhage, skull fracture, concussion. Reassuringly, these falls are described as mechanical in nature without preceding dizziness, syncope, chest pain, etc. I have a low concern for medical conditions such as arrhythmia, ACS, vasovagal syndrome, orthostasis, seizure, stroke as the results of the patient's falls Will obtain labs to include CBC, CMP, magnesium, INR, and will obtain CT of the head, C-spine, chest abdomen and pelvis. I will provide the patient with Tylenol and Lidoderm for management of discomfort. - I independently interpreted the laboratory studies, which show no significant leukocytosis, anemia, or thrombocytopenia. The chemistry panel is without evidence of electrolyte abnormality, kidney dysfunction, or liver injury. CT imaging shows no evidence of intracranial hemorrhage, rib fracture, pulmonary contusion, hepatic injury, or other acute traumatic findings. The patient was counseled on incentive spirometry and was able to pull 3000 mL, and I have a very low concern that this patient will develop atelectasis given appropriate counseling on pulmonary hygiene. I did counselor education professor him on Tylenol and Lidoderm for pain management, and at this time, the patient has had a full medical evaluation and is safe for discharge to home. They are hemodynamically stable, ambulatory, and tolerating PO. They are understanding of the follow-up plan and return precautions. They left our facility without incident. Cyndi Warner MD [facility] All Active Problems (Updated 12/26/24 @ 16:21 by Cyndi Warner MD) Contusion of rib on right side (Acute) Urgency incontinence (Acute) Obesity (BMI 30-39.9) (Chronic) BPH w urinary obs/LUTS (Chronic) Chronic anticoagulation (Chronic) Eliquis for hx of unprovoked RLE DVT Memory loss (Chronic) Right rotator cuff tear (Chronic ~11/2021) Dysphagia (Chronic) Frequent falls (Chronic) Constipation (Chronic) Prediabetes (Chronic) Major depressive disorder (Chronic) ECT at [facility] [place] 1997 Sensorineural hearing loss, bilateral (Chronic) Parkinson's disease (Chronic) Bilateral pallidotomy Obstructive sleep apnea syndrome (Chronic) Unable to tolerate CPAP Non-alcoholic fatty liver disease (Chronic) Insomnia (Chronic) Hyperlipidemia (Chronic) Gastroesophageal reflux disease (Chronic) Lumbosacral spondylosis without myelopathy (Chronic) Medical History (Updated 12/26/24 @ 16:21 by Cyndi Warner MD) Risk for falls Deep vein thrombosis (DVT) of right lower extremity (~02/2021) Essential hypertension Surgical History Status post reverse arthroplasty of left shoulder (08/02/20) And left shoulder arthroscopic biopsy 08/29/21 for continued pain History of revision of total replacement of left hip joint (07/21/19) S/P vasectomy S/P tonsillectomy 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 Sister No problems noted. Son Heart disease Son No problems noted. Son Depression Daughter No problems noted. Daughter No problems noted. Paternal Grandfather Heart disease Paternal Grandmother No problems noted. Maternal Grandfather No problems noted. Maternal Grandmother Depression Social History (Updated 02/25/24 @ 11:11 by Madelin Cade) Smoking/Tobacco Use Status: Former Tobacco Use tobacco type: cigarettes Quit Date: 03/09/06 Pack-years: 25 Tobacco: How many years used: 20 Quit status: has quit before Smoking risk assessment performed?: Yes Alcohol Intake: current Alcohol Intake frequency: holidays/special occasions only Drug use: Occasionally Substance use type: marijuana Adopted: No Caregiver/Support person: No Foster care: No Household members: spouse Housing: house Number of Children: 3 number of grandchildren: 6 Communication Needs: Hard of Hearing and Corrective Lenses Education Level: high school Do you need help understanding health information?: Rarely Pets and animals: Yes Pets and animals: dog(s) Sexually active: No Do you think of yourself as: straight/heterosexual What is your relationship status?: How often do you talk on the phone with friends or family?: twice per week How often do you get together with friends or relatives?: once per week How often do you attend scientologist or jewish services?: decline to answer Do you belong to any clubs or organized social groups?: no Panel score (0-1 are the most socially isolated patients): 2 Tati/Religious: No preference Special tati needs: No Seatbelt use: always Helmet use: No 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
[2024-12-26 14:38] LABS: Abs Immature Grans 0.02 10^3/uL (0.0-0.06); HCT 44.5 % (40.0-50.0); HGB 15.1 g/dL (13.5-17.5); Immature Grans % 0.3 %; MCH 31.1 pg (27.0-33.0); MCHC 33.9 % (32.0-36.0); MCV 92 fL (80-95); MPV 9.6 fL (8.0-11.0); Platelet Count 210 10^3/uL (130-400); RBC 4.86 10^6/uL (4.36-5.78); RDW 12.8 % (11.8-14.1); RDW-SD 42.4 fL; WBC 6.07 10^3/uL (4.4-10.8)
[2024-12-26 14:50] LABS: INR 1.0 (0.9-1.1); Prothrombin Time 10.0 sec (9.1-11.1)
[2024-12-26 15:08] LABS: ALT 37 U/L (16-63); AST 20 U/L (15-37); Albumin 3.4 g/dL (3.4-5.0); Alkaline Phosphatase 76 U/L (46-116); Anion Gap 8.3 mmol/L (3-11); BUN 14 mg/dL (7-18); Bilirubin, Total 0.5 mg/dL (0.2-1.0); CO2 27.7 mmol/L (21.0-32.0); Calcium 8.5 mg/dL (8.5-10.1); Chloride 106 mmol/L (98-107); Estimated GFR 95.37 (mL/min/1.73m2); Glucose 121 mg/dL (74-106); Magnesium 2.0 mg/dL (1.8-2.4); Potassium 3.8 mmol/L (3.5-5.1); Sodium 142 mmol/L (136-145); Total Protein 6.8 g/dL (6.4-8.2)
[2024-12-26] MEDS: Lidocaine 5% Patch 1 PATCH TP (15:12)
[2024-12-26] MEDS: Acetaminophen 500 MG TAB 1000 MG PO (15:12)
[2024-12-26] MEDS: Normal Saline - Diluent 50 ML VIAL IJ (15:26)
[2024-12-26] MEDS: Omnipaque 350 MG/ML 100 ML BTL IJ (15:26)
[2024-12-26] MEDS: Normal Saline Flush 10 ML SYR IVP (15:27)
--- NOTE | 2024-12-26 15:39 | DI.CT_ITS ---
Exam(s) CT HEAD CERVICAL SPINE WO EXAM: CT HEAD CERVICAL SPINE WO CLINICAL HISTORY: fall, on epiquis. TECHNIQUE: Imaging Protocol: Axial computed tomography images with coronal and sagittal reformatted images were created and reviewed COMPARISON: CT HEAD WITHOUT CONTRAST from 08/08/2015 FINDINGS: Head CT Ventricles and Extra axial spaces: Normal in size and morphology for the patient's age. Hemorrhage: None. Cerebral parenchyma: No evidence of mass or acute infarct. Is prominent atrophy, unchanged from prior. 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 Midline shift: None. Brainstem/Cerebellum: Normal. Calvarium: Normal. Visualized Paranasal sinuses/Mastoids: Clear. Soft tissues: Unremarkable. Cervical Spine CT Exam is somewhat limited by patient body habitus and streak artifact. BONES: Vertebral body heights are maintained. Alignment is normal. There is no evidence of acute fracture. Degenerative disc changes and facet degenerative changes are seen . SOFT TISSUES: No paraspinal hematoma. The airway appears intact. No pneumothorax is seen at the lung apices. IMPRESSION: Head CT: Prominent atrophy. No acute abnormality. C-spine CT: Degenerative changes, no acute abnormality. RADIATION DOSE DELIVERED: Total DLP DATA REPOSITORY: All CT scans at this facility are submitted to the National Radiology Data Registry (NRDR) Dose Index Registry (DIR) with the [employer] (ACR). RADIATION OPTIMIZATION: All CT scans at this facility use at least one of these dose optimization techniques: automated exposure control; mA and/or kV adjustment per patient size (includes targeted exams where dose is matched to clinical indication); or iterative reconstruction.
[2024-12-26 16:39] VITALS: BP 115/87; PULSE 84; RESP 22; O2SAT 94
== END 2024-12-26 16:45 | disposition home or self-care (01) ==
PROVIDERS: Emergency Provider Emergency Medicine; PCP Nurse Practitioner Family
DX: S29.8XXA Other specified injuries of thorax, initial encounter (principal); Z79.01 Long term (current) use of anticoagulants; W19.XXXA Unspecified fall, initial encounter
CPT/HCPCS: 99283; 99285; 36415; 74177; 80053; 70450; 71260; 72125; 83735; 85025; 85610; J3490

== ENCOUNTER 2025-02-04 05:20 | Inpatient (IN) | payer OTHER, MEDICARE, SELFPAY ==
[2025-02-04] VITALS (25 sets, daily range): BP systolic 101–155; BP diastolic 49–86; PULSE 76–88; RESP 16–37; TEMP 36.3–39.5; O2SAT 92–99
--- NOTE | 2025-02-04 05:20 | ED.GENADUL_ITS ---
Discharge Plan Discharge Details Chief Complaint: AMS/LOC Primary Care Provider: Heena Martínez ED Provider: Naveen Mak [facility] and New Rx's Prescriptions: No Action citalopram 10 mg tablet 10 mg PO DAILY Qty: 90 3RF lansoprazole [Prevacid] 30 mg capsule,delayed release(DR/EC) 30 mg PO DAILY Qty: 90 3RF polyethylene glycol 3350 [Miralax] 17 gram/dose powder 8.5 g PO DAILY PRN (Reason: constipation) Qty: 510 4RF Patient Comments: not taking medical marijuana 0RF apixaban 5 mg tablet 5 mg PO BID Qty: 180 3RF Rx Instructions: Take 1 tablet twice a day escitalopram oxalate [Lexapro] 10 mg tablet 10 mg PO DAILY HPI General Mode of arrival: EMS . Date/Time Provider Initiated Documentation: 02/04/25 05:20 . Limitations to Documentation: altered mental status . Information obtained by: patient, family, EMS, RN notes reviewed and old records reviewed . HPI Narrative: Patient brought into ED by ambulance with fever, generalized weakness, altered mental status. called EMS this morning for weakness, confusion, shortness of breath. Patient found to be febrile to 103 by EMS. On arrival patient is awake and alert, does seem somewhat confused. States that his left leg hurts but denies headache, chest pain, abdominal pain. Denies feeling short of breath. Reports just very weak. Related Data Home Medications ?Medication ?Instructions ?Recorded ?Confirmed polyethylene glycol 3350 17 8.5 g PO DAILY PRN constip ation 02/14/21 02/04/25 gram/dose oral powder (Miralax) #510 grams Held on 12/26/24. Instructions: Pt Stopped/Never Started apixaban 5 mg tablet 5 mg PO BID #180 tabs 02/04/25 citalopram 10 mg tablet 10 mg PO DAILY #90 tabs 02/0608/29/24 lansoprazole 30 mg capsule,delayed 30 mg PO DAILY #90 caps 02/24/24 02/04/25 release (Prevacid) escitalopram oxalate 10 mg tablet 10 mg PO DAILY 02/0402/04/25 (Lexapro) Previous Rx's ?Medication ?Instructions ?Recorded polyethylene glycol 3350 17 8.5 g PO DAILY PRN constip ation 02/14/21 gram/dose oral powder (Miralax) #510 grams Held on 12/26/24. Instructions: Pt Stopped/Never Started apixaban 5 mg tablet 5 mg PO BID #180 tabs citalopram 10 mg tablet 10 mg PO DAILY #90 tabs 02/06 10/30 lansoprazole 30 mg capsule,delayed 30 mg PO DAILY #90 caps 02/24/24 release (Prevacid) Allergies Allergy/AdvReac Type Severity Reaction Status Date / Time oxybutynin Allergy Severe Hallucinati Verified 12/26/24 14:22 ons/suicida l mirabegron (From Myrbetriq) Allergy Unknown suicidal Verified 12/26/24 14:22 ideations/dreams fentanyl AdvReac Severe HALLUCINATIONS; Verified 12/26/24 14:22 SUICIDAL IDEATION duloxetine (From Cymbalta) AdvReac Intermediate Nausea Verified 12/26/24 14:22 General Stated Complaint: AMS/LOC RENO: 3 Exam Narrative Exam Narrative: Const: Obese elderly male in NAD. VS per triage. HEENT: NC/AT. Normal facial exam. Neck: Supple. Trachea midline. Lungs: Normal respiratory effort. Lungs are clear. Cor: RRR without murmur. Good radial pulses. GI: Soft/ND/NT. Neuro: Awake and alert, a little slow to respond. Normal speech. Cranial nerves II - XII grossly intact. No gross motor or sensory deficit. Tremor present. Ext: No C/C/E. Open wound on left knee with erythema and warmth, tenderness distally involving the merino area. Course Vital Signs Vital signs: Vital Signs Pulse 88 02/04/25 05:11 Respiratory Rate 22 02/04/25 05:11 Pulse Oximetry 96 02/04/25 05:11 Pulse 88 02/04/25 05:11 Respiratory Rate 22 02/04/25 05:11 Blood Pressure Position Supine 02/04/25 05:11 Pulse Oximetry 96 02/04/25 05:11 Oxygen Delivery Method Room Air 02/04/25 05:11 Oxygen Flow Rate 0 02/04/25 05:11 Pain Level 0 02/04/25 05:11 Medical Decision Making Elderly gentleman presenting from home with altered mental status. Found to be febrile and likely has lower extremity cellulitis from open wound over the left knee. Blood pressure and heart rate are normal. Rectal temp is 103.1. IV established and laboratory studies, blood cultures obtained. Will plan for straight cath urine, chest x-ray, Fluvid, CT head simply because of altered mental status and anticoagulation for prior PE. Will start fluids though again hemodynamically appears stable. Ordered for vancomycin given likely source of infection being cellulitis. Patient's EKG is sinus rhythm with lots of artifact from his Parkinson's tremor. Appears to have prolonged NH and left anterior fascicular block but no acute ST changes and not significantly different from previous taking into consideration the artifact. His lactic acid is only minimally elevated at 2.6. Venous pH is 7.43 with a pCO2 of 40. Chemistry is fairly unremarkable. Potassium a little low at 3.4 and creatinine a little high at 1.3. Magnesium is low 1.4 is ordered for IV replacement. CBC and Fluvid pending. Imaging studies pending as is urinalysis. Patient will need admission once workup completed. Discussed with oncoming ED physician Dr. Fontana to follow-up on pending studies and admission. Lab Data Lab results reviewed: Yes I reviewed the patient's lab results. Lab results narrative: see MDM ECG Data Attestation: I personally reviewed and interpreted this ECG (s) as follows: Prior ECG tracings: available for review Interpretation: see EKG/MDM [facility] All Active Problems Urgency incontinence (Acute) Obesity (BMI 30-39.9) (Chronic) BPH w urinary obs/LUTS (Chronic) Chronic anticoagulation (Chronic) Eliquis for hx of unprovoked RLE DVT Memory loss (Chronic) Right rotator cuff tear (Chronic ~11/2021) Dysphagia (Chronic) Frequent falls (Chronic) Constipation (Chronic) Prediabetes (Chronic) Major depressive disorder (Chronic) ECT at [facility] [place] 1997 Sensorineural hearing loss, bilateral (Chronic) Parkinson's disease (Chronic) Bilateral pallidotomy Obstructive sleep apnea syndrome (Chronic) Unable to tolerate CPAP Non-alcoholic fatty liver disease (Chronic) Insomnia (Chronic) Hyperlipidemia (Chronic) Gastroesophageal reflux disease (Chronic) Lumbosacral spondylosis without myelopathy (Chronic) Medical History Risk for falls Deep vein thrombosis (DVT) of right lower extremity (~02/2021) Essential hypertension Surgical History Status post reverse arthroplasty of left shoulder (08/02/20) And left shoulder arthroscopic biopsy 08/29/21 for continued pain History of revision of total replacement of left hip joint (07/21/19) S/P vasectomy S/P tonsillectomy 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 Sister No problems noted. Son Heart disease Son No problems noted. Son Depression Daughter No problems noted. Daughter No problems noted. Paternal Grandfather Heart disease Paternal Grandmother No problems noted. Maternal Grandfather No problems noted. Maternal Grandmother Depression Social History Smoking/Tobacco Use Status: Former Tobacco Use tobacco type: cigarettes Quit Date: 03/09/06 Pack-years: 25 Tobacco: How many years used: 20 Quit status: has quit before Smoking risk assessment performed?: Yes Alcohol Intake: current Alcohol Intake frequency: holidays/special occasions only Drug use: Occasionally Substance use type: marijuana Adopted: No Caregiver/Support person: No Foster care: No Household members: spouse Housing: house Number of Children: 3 number of grandchildren: 6 Communication Needs: Hard of Hearing and Corrective Lenses Education Level: high school Do you need help understanding health information?: Rarely Pets and animals: Yes Pets and animals: dog(s) Sexually active: No Do you think of yourself as: straight/heterosexual What is your relationship status?: How often do you talk on the phone with friends or family?: twice per week How often do you get together with friends or relatives?: once per week How often do you attend mormon or gnosticist services?: decline to answer Do you belong to any clubs or organized social groups?: no Panel score (0-1 are the most socially isolated patients): 2 Tati/Hindu: No preference Special tati needs: No Seatbelt use: always Helmet use: No 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
--- NOTE | 2025-02-04 05:30 | RT.EKG_ITS ---
APPROVED REPORT Exam: Resting ECG Reason for Exam: sepsis Patient Location: E HR:94 bpm ECG Measurements Heart Rate 94 AXIS KS 65 P 0 QRSd 114 QRS -71 QT 475 T 16 QTc 568 Conclusion Sinus rhythm...normal P axis, V-rate 60- 99 Left anterior fascicular block...axis(240,-40), init forces inf Consider anterior infarct...Q >30mS in V2-V5 Nonspecific T abnormalities, lateral leads...T <-0.10mV, I aVL V5 V6 Prolonged QT interval...QTc >500mS Significant artifact from Parkinson's tremor. NSR Prolong KS LAFB NS ST changes Taking into account the artirfact, no significant change compared to EKG of 03/02/2021.
[2025-02-04] MEDS: Normal Saline 1,000 ML 1000 ML IV (05:35)
[2025-02-04 05:39] LABS: BE (Venous) 2 mmol/L (-2-3); HCO3 (Venous) 26 mmol/L (23-28); O2 Sat (Venous) 59 %; TCO2 (Venous) 23 mmol/L (24-29); pCO2 (Venous) 40 mmHg (41-51); pO2 (Venous) 29 mmHg
[2025-02-04 05:42] LABS: Abs Immature Grans 0.10 10^3/uL (0.0-0.06); HCT 44.2 % (40.0-50.0); HGB 15.0 g/dL (13.5-17.5); MCH 31.2 pg (27.0-33.0); MCHC 33.9 % (32.0-36.0); MCV 92 fL (80-95); MPV 9.6 fL (8.0-11.0); Platelet Count 192 10^3/uL (130-400); RBC 4.81 10^6/uL (4.36-5.78); RDW 12.7 % (11.8-14.1); RDW-SD 43.0 fL; WBC 21.37 10^3/uL (4.4-10.8)
--- NOTE | 2025-02-04 05:45 | NUR.NOTE ---
Nursing Note: Assessment of LLE, old scab that appears to have reopened to L knee, significant redness noted below the knee wound.
[2025-02-04] MEDS: ACETAMINOPHEN 1,000 MG/100 ML BAG 400 MG IVPB ×2 (05:51→14:00)
[2025-02-04 05:57] LABS: Magnesium 1.4 mg/dL (1.6-2.6)
[2025-02-04 05:59] LABS: ALT 25 U/L (10-49); AST 20 U/L (<34); Albumin 4.2 g/dL (3.2-5.0); Alkaline Phosphatase 84 U/L (46-116); Anion Gap 10.3 mmol/L (3-11); BUN 16 mg/dL (9-23); Bilirubin, Total 1.40 mg/dL (0.2-1.2); CO2 25.7 mmol/L (20.0-31.0); Calcium 9.0 mg/dL (8.3-10.6); Chloride 102 mmol/L (98-107); Glucose 169 mg/dL (74-106); Potassium 3.4 mmol/L (3.5-5.1); Sodium 138 mmol/L (136-145); Total Protein 6.9 g/dL (5.7-8.2)
[2025-02-04 06:02] LABS: Immature Grans % 0.0 %
[2025-02-04 06:03] LABS: RBC Morphology Normal
[2025-02-04] MEDS: VANCOMYCIN 2,000 MG in Normal Saline 500 ML 333.3333 MG IVPB (06:32)
[2025-02-04] MEDS: MAGNESIUM SULFATE 2 GM/50 ML BAG IV_INF (06:34)
--- NOTE | 2025-02-04 06:36 | W.EDPROG ---
Date of service: 02/04/25 Time of Service: 06:36 Medical Decision Making I received signout on this 64-year-old male with Parkinson's found to have left lower extremity cellulitis. He is confused for which he received a CT head. He is also pending urinalysis and chest x-ray. He received vancomycin. Will add on ceftriaxone. Patient will require hospitalization. 8:37 AM Nitrite positive urinalysis with negative leuk esterase. Rare bacteria on microscopy. Patient has received ceftriaxone. Chest x-ray read as possible pneumonia for which I added on doxycycline. 9:25 AM I was in touch with Dr. Ramirez who graciously agreed to accept the patient for hospitalization. In the setting of the patient's new hyperbilirubinemia I reviewed a CT scan from last month. He had no evidence of cholelithiasis. No hepatic masses nor any reported pancreatic masses. He is having no abdominal pain to suggest acute cholecystitis. I reassessed the patient. He was in no acute distress. He does have lower extremity cellulitis with calf tenderness. He will likely benefit from a left lower extremity duplex study. I do not feel he requires this emergently. He is not hypotensive nor tachycardic to suggest PE so we will defer duplex study to admitting hospitalist team. In the absence of cholelithiasis my suspicion for choledocholithiasis is lower. Patient does not have obvious jaundice nor right upper quadrant pain. In the absence of Charcot's triad my suspicion is lower for ascending cholangitis. Discharge Plan Discharge Details Chief Complaint: AMS/LOC Clinical Impression: Cellulitis of left leg, Hyperbilirubinemia Admit Date/Time: 02/04/25 09:17 Admit Provider: Raúl Ramirez Attending Provider: Raúl Ramirez Primary Care Provider: Heena Martínez ED Provider: John Fontana
--- NOTE | 2025-02-04 07:50 | DI.RAD_ITS ---
Exam(s) XR CHEST 2V PA LATERAL EXAM: XR CHEST 2V PA LATERAL CLINICAL HISTORY: fever, AMS TECHNIQUE: 2D digital imaging was performed of the chest. Two images were obtained. AP and lateral views were obtained. COMPARISON: CR XR CHEST 2V PA LATERAL from 02/17/2020 FINDINGS: There is poor inspiration. MEDIASTINUM: Normal. HEART: The heart size is exaggerated by the poor inspiration and the semiupright position. PULMONARY VASCULATURE: Normal. LUNGS: There are no focal consolidating infiltrates. PLEURAL SPACE: No pleural effusion or pneumothorax. BONE:Within normal limits for the patient's age. Prior left shoulder replacement is partially visualized. OTHER FINDINGS:Normal. IMPRESSION: 1. Examination limited by poor inspiration and semi upright position. 2. No definite acute pulmonary process. The lung bases are poorly visualized. 3. The preliminary [facility] report was reviewed. DATA REPOSITORY: RADIATION DOSE DELIVERED:
--- NOTE | 2025-02-04 07:50 | DI.CT_ITS ---
Exam(s) CT HEAD WO EXAM: CT HEAD WO CLINICAL HISTORY: AMS. TECHNIQUE: Imaging Protocol: Axial computed tomography images with coronal and sagittal reformatted images were created and reviewed COMPARISON: CT HEAD WITHOUT CONTRAST from 08/08/[address] HEAD CERVICAL SPINE WO from 12/26/2024 FINDINGS: Ventricles and Extra axial spaces: Normal in size and morphology for the patient's age. Hemorrhage: None. Cerebral parenchyma: There is no evidence of an acute territorial infarct. There are areas of encephalomalacia again seen in the basal ganglia bilaterally. Midline shift: None. Brainstem/Cerebellum: Normal. Calvarium: Normal. Visualized Paranasal sinuses/Mastoids: There is mild mucosal thickening in the paranasal sinuses. The mastoid air cells are clear. Soft Tissues: Unremarkable. IMPRESSION: 1. No acute intracranial process. 2. The preliminary [facility] report was reviewed. RADIATION DOSE DELIVERED: 901.55mGy.cm Total DLP DATA REPOSITORY: All CT scans at this facility are submitted to the National Radiology Data Registry (NRDR) Dose Index Registry (DIR) with the [employer] (ACR). RADIATION OPTIMIZATION: All CT scans at this facility use at least one of these dose optimization techniques: automated exposure control; mA and/or kV adjustment per patient size (includes targeted exams where dose is matched to clinical indication); or iterative reconstruction.
[2025-02-04 08:27] LABS: Glucose 100 mg/dL (Negative)
[2025-02-04 08:34] LABS: C & S Indicated? No; RBC 0-2 HPF (0-2); WBC Negative HPF (0-5)
--- NOTE | 2025-02-04 08:34 | DI.[facility]_ITS ---
PROCEDURE INFORMATION: Exam: CT Head Without Contrast Exam date and time: 02/04/2025 7:14 AM Age: 64 years old Clinical indication: Altered mental status/memory loss and fever; Confusion or disorientation TECHNIQUE: Imaging protocol: Computed tomography of the head without contrast. COMPARISON: CT HEAD CERVICAL SPINE WO 12/26/2024 3:26 PM FINDINGS: Brain: Small extra-axial calcification along left convexity as before. There is moderate diffuse brain atrophy. There is stable encephalomalacia in bilateral globus pallidus and patient has reported bilateral pallidotomies on prior neurology report. There is stable lucent tract in right greater than left frontal lobes which may relate to prior pallidotomies. There is no acute intracranial hemorrhage. No extra-axial fluid collection. No evidence of acute infarct. [place] white differentiation is intact. There is no evidence of mass. There is no mass effect or midline shift. Cerebral ventricles: No ventriculomegaly. Paranasal sinuses: Mild scattered mucosal thickening in paranasal sinuses. Mastoid air cells: Small amount of opacification/fluid in inferior aspect of left mastoid Bones: Unremarkable. No acute fracture. Soft tissues: Unremarkable as visualized. IMPRESSION: 1. No evidence of acute intracranial abnormality. No acute hemorrhage. No evidence of acute infarct or mass. 2. Stable chronic findings. Dictated and Authenticated by: Mckenzie Monroe MD. Orderin Obdulio Hodge MD
--- NOTE | 2025-02-04 08:37 | DI.[facility]_ITS ---
PROCEDURE INFORMATION: Exam: XR Chest Exam date and time: 02/04/2025 7:25 AM Age: 64 years old Clinical indication: Fever; Additional info: Best images due to pts large anatomy/unable to move TECHNIQUE: Imaging protocol: Radiologic exam of the chest. Views: 2 views. COMPARISON: CT CHEST/ABD/PEL W 12/26/2024 3:34 PM FINDINGS: Limitations: Patient is rotated and there are low lung volumes likely related to inspiratory effort/degree. This limits evaluation of right lung base. Limited by patient's body habitus. Lungs: Can not exclude a right lower lobe infiltrate/pneumonia. No definite left lung infiltrate. Pleural spaces: No visible pleural effusion. No pneumothorax. Heart/Mediastinum: No significant cardiomegaly. Bones/joints: There is left shoulder replacement IMPRESSION: Limited examination. Possible right lower lobe infiltrate/pneumonia. Dictated and Authenticated by: Mckenzie Monroe MD. Orderin Obdulio Hodge MD
[2025-02-04] MEDS: cefTRIAXone 2 GM/50 ML BAG IVPB (08:40)
[2025-02-04] MEDS: Doxycycline Hyclate 100 MG CAP PO ×2 (08:49→20:58)
--- NOTE | 2025-02-04 09:29 | HPE_ITS ---
Date of service: 02/04/25 Time of Service: 09:00 Assessment and Plan Assessment and plan (1) Cellulitis of left leg: Status: Acute Assessment and plan: Appearance of left leg, with recent wound and distal erythema/edema suggestive of cellulitis With fever, leukocytosis, lactic acidosis, will admit for IV antibiotics and supportive care Telemetry, monitor for worsening symptoms that might indicate inadequate antibiotic coverage Ceftriaxone, doxycycline, vancomycin US LE when available (2) Parkinson's disease: Status: Chronic Assessment and plan: Not currently on meds Physical therapy (3) Frequent falls: Status: Chronic Assessment and plan: PT as above (4) BPH w urinary obs/LUTS: Status: Chronic Assessment and plan: Greenberg placed, large amount of urine behind the prostate (5) Non-alcoholic fatty liver disease: Status: Chronic Assessment and plan: Chronic transaminitis (6) Obesity (BMI 30-39.9): Status: Chronic Assessment and plan: Patient's is not able to safely care for him at home due to her small stature (7) Chronic anticoagulation: Status: Chronic Assessment and plan: On apixaban for unprovoked RLE DVT (8) Major depressive disorder: Status: Chronic Assessment and plan: Continue home regimen History of Present Illness History of Present Illness Chief Complaint: LLE cellulitis Narrative: Ed Gary is a 64 year old man presenting February 04, brought in by ambulance for left knee wound with surrounding redness, and fever to 103. Patient had altered mental status and generalized weakness. Per family he has been more tired and weak for a few days. Patient reports that his left knee hurts and that he feels very weak. No chest pain, no shortness of breath, no abdominal pain, no N/V/D. Patient has Parkinsons and falls frequently, most recently with rib fractures in December. In the ED he was febrile T 39.5, vitals otherwise unremarkable on room air. No acute changes on EKG, no occlusion. CXR without acute findings, limited by body habitus. CT head with no acute pathology. Neutrophilic leukocytosis WBC 21.37. Lactate 2.6. Creatiine 1.29 against normal baseline. Elevated glucose 169. Low Mg 1.4, elevated total bilirubin 1.4. UA suggestive of UTI. Negative flu/covid/rsv. He was given NS 1L bolus, IV tylenol, started on vancomycin, given Mg, started on ceftriaxone and doxycycline. Admitted for cellulitis, not septic. PMH includes Parkinson disease, prior PE, depression, BPH, BMI 38.5 PFSH All Active Problems (Updated 02/04/25 @ 09:27 by John Fontana MD) Hyperbilirubinemia (Acute) Cellulitis of left leg (Acute) Urgency incontinence (Acute) Obesity (BMI 30-39.9) (Chronic) BPH w urinary obs/LUTS (Chronic) Chronic anticoagulation (Chronic) Eliquis for hx of unprovoked RLE DVT Memory loss (Chronic) Right rotator cuff tear (Chronic ~11/2021) Dysphagia (Chronic) Frequent falls (Chronic) Constipation (Chronic) Prediabetes (Chronic) Major depressive disorder (Chronic) ECT at [facility] 1997 Sensorineural hearing loss, bilateral (Chronic) Parkinson's disease (Chronic) Bilateral pallidotomy Obstructive sleep apnea syndrome (Chronic) Unable to tolerate CPAP Non-alcoholic fatty liver disease (Chronic) Insomnia (Chronic) Hyperlipidemia (Chronic) Gastroesophageal reflux disease (Chronic) Lumbosacral spondylosis without myelopathy (Chronic) Medical History Risk for falls Deep vein thrombosis (DVT) of right lower extremity (~02/2021) Essential hypertension Surgical History Status post reverse arthroplasty of left shoulder (08/02/20) And left shoulder arthroscopic biopsy 08/29/21 for continued pain History of revision of total replacement of left hip joint (07/21/19) S/P vasectomy S/P tonsillectomy 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 Sister No problems noted. Son Heart disease Son No problems noted. Son Depression Daughter No problems noted. Daughter No problems noted. Paternal Grandfather Heart disease Paternal Grandmother No problems noted. Maternal Grandfather No problems noted. Maternal Grandmother Depression Social History Smoking/Tobacco Use Status: Former Tobacco Use tobacco type: cigarettes Quit Date: 03/09/06 Pack-years: 25 Tobacco: How many years used: 20 Quit status: has quit before Smoking risk assessment performed?: Yes Alcohol Intake: current Alcohol Intake frequency: holidays/special occasions only Drug use: Occasionally Substance use type: marijuana Adopted: No Caregiver/Support person: No Foster care: No Household members: spouse Housing: house Number of Children: 3 number of grandchildren: 6 Communication Needs: Hard of Hearing and Corrective Lenses Education Level: high school Do you need help understanding health information?: Rarely Pets and animals: Yes Pets and animals: dog(s) Sexually active: No Do you think of yourself as: straight/heterosexual What is your relationship status?: How often do you talk on the phone with friends or family?: twice per week How often do you get together with friends or relatives?: once per week How often do you attend latter-day or orthodoxy services?: decline to answer Do you belong to any clubs or organized social groups?: no Panel score (0-1 are the most socially isolated patients): 2 Tati/Methodist: No preference Special tati needs: No Seatbelt use: always Helmet use: No Drive intox or ride w/intox trackless trolley driver: No Do you feel safe at home: Yes Do you feel safe in your relationship?: Yes Additional Social history: UTAP Meds Allergies and Home Medications Allergies Allergy/AdvReac Type Severity Reaction Status Date / Time oxybutynin Allergy Severe Hallucinati Verified 12/26/24 14:22 ons/suicida l mirabegron (From Myrbetriq) Allergy Unknown suicidal Verified 12/26/24 14:22 ideations/dreams fentanyl AdvReac Severe HALLUCINATIONS; Verified 12/26/24 14:22 SUICIDAL IDEATION duloxetine (From Cymbalta) AdvReac Intermediate Nausea Verified 12/26/24 14:22 Home Medications ?Medication ?Instructions ?Recorded ?Confirmed ?Type Medical Marijuana 10/14/17 04/15/18 Clinic polyethylene glycol 3350 17 8.5 g PO DAILY PRN constip ation 02/14/21 02/04/25 Rx gram/dose oral powder (Miralax) #510 grams Held on 12/26/24. Instructions: Pt Stopped/Never Started apixaban 5 mg tablet 5 mg PO BID #180 tabs 02/04/25 Rx citalopram 10 mg tablet 10 mg PO DAILY #90 tabs 02/0608/29/24 Rx lansoprazole 30 mg capsule,delayed 30 mg PO DAILY #90 caps 02/24/24 02/04/25 Rx release (Prevacid) escitalopram oxalate 10 mg tablet 10 mg PO DAILY 02/0402/04/25 History (Lexapro) Exam Narrative Exam Narrative: General: This is an obese, somnolent man in no distress HEENT: Normocephalic, atraumatic CV: RRR Resp: CTAB Abd: soft, NTND : scrotum is very large and moderately erythematous and edematous, nontender MSK: voluntary motion x4. 3 cm round recent wound with young eschar. Distal to wound leg is erythematous and edematous suggestive of venous stasis. Right leg without edema nor erythema. Neuro: awake, alert, slow speech. BUE tremor. Results Labs 02/04/25 05:22 02/04/25 05:22 Labs: Laboratory Results - last 24 hr 02/04/25 02/04/25 05:22 08:13 WBC 21.37 H RBC 4.81 Hgb 15.0 Hct 44.2 MCV 92 MCH 31.2 MCHC 33.9 RDW 12.7 Plt Count 192 MPV 9.6 Immature Gran % 0.0 Neutrophils % 90.0 Lymphocytes % 2.0 Monocytes % 7.0 Eosinophils % 1.0 Basophils % 0.0 Nucleated RBC % 0.0 Absolute Neutrophils 19.23 H Absolute Lymphocytes 0.43 L Absolute Monocytes 1.50 H Absolute Eosinophils 0.21 Absolute Basophils 0.00 RBC Morphology Normal VBG pH 7.43 H VBG pCO2 40 L VBG pO2 29 VBG HCO3 26 VBG Total CO2 23 L VBG O2 Saturation 59 VBG Base Excess 2 VBG Lactate 2.6 H* Sodium 138 Potassium 3.4 L Chloride 102 Carbon Dioxide 25.7 Anion Gap 10.3 BUN 16 Creatinine 1.29 H Est GFR (CKD-EPI 2020) 55.95 Glucose 169 H Calcium 9.0 Magnesium 1.4 L Total Bilirubin 1.40 H AST 20 ALT 25 Alkaline Phosphatase 84 Total Protein 6.9 Albumin 4.2 Urine Color Dark Yellow Urine Clarity Clear Urine pH 6.0 Ur Specific [place] 1.020 Urine Protein 30 H Urine Ketones 15 H Urine Blood Trace-intact H Urine Nitrite Positive H Urine Bilirubin Small H Urine Urobilinogen 4.0 H Ur Leukocyte Esterase Negative Urine RBC 0-2 Urine WBC Negative Ur Epithelial Cells Rare Urine Crystals Negative Urine Bacteria Rare Urine Casts 0-2 Hyaline Urine Mucus Heavy Ur Culture Indicated? No Urine Glucose 100 H Last Vital Signs Temp 39.5 C H 02/04/25 05:38 Pulse 77 02/04/25 09:01 Resp 23 02/04/25 09:01 BP 114/53 L 02/04/25 09:01 Pulse Ox 92 02/04/25 06:44 VTE Prohylaxis Risk Level: Moderate/High Risk Contraindications: None Prophylaxis: Patient anticoagulated Time Spent Time spent with Patient: 40-54 minutes Time was spent: preparing to see the patient(eg.review tests), obtaining and/or reviewing separately otained hiistory, ordering medications,tests, procedures, referring, communicating with other health healthcare advisory services manager, indepentently interpreting results, counseling the patient and care coordination
--- NOTE | 2025-02-04 10:08 | W.PC.ACHO ---
Registration Status: REG ER Primary Language: Preferred Language: Latvian ED Information & Data Chief Complaint AMS/LOC 02/04/25 05:38 Chief Complaint AMS/LOC 02/04/25 05:34 Triage Note Ambulance initially called 02/04/25 05:11 for sob, after arriving, found patient to have an open wound to L knee with significant redness, fever reported by EMS, 103. Medical / Surgical History (Last Reviewed 02/04/25 @ 05:39 by Naveen Mak MD) Risk for falls Deep vein thrombosis (DVT) of right lower extremity (~02/2021) Essential hypertension (Last Reviewed 02/04/25 @ 05:39 by Naveen Mak MD) Status post reverse arthroplasty of left shoulder (08/02/20) History of revision of total replacement of left hip joint (07/21/19) S/P vasectomy S/P tonsillectomy Status post total replacement of left hip (08/25/08) S/P colonoscopy (05/11/20) S/P appendectomy S/P brain surgery Most Recent Vital Signs Temperature 39.5 C H 02/04/25 05:38 Temperature Source Rectal 02/04/25 05:38 Pulse 84 02/04/25 10:00 Pulse Rhythm Regular 02/04/25 06:44 Pulse Strength Normal 02/04/25 06:44 Pulse 83 02/04/25 10:00 Respiratory Rate 30 H 02/04/25 10:00 Respiratory Effort Normal 02/04/25 06:44 Respiratory Depth Normal 02/04/25 06:44 Respiratory Pattern Normal 02/04/25 06:44 Blood Pressure 127/59 L 02/04/25 09:46 Blood Pressure Mean 82 02/04/25 09:46 Blood Pressure Position Sitting 02/04/25 06:44 Pulse Oximetry 94 02/04/25 10:00 Oxygen Delivery Method Room Air 02/04/25 06:44 Oxygen Flow Rate 0 02/04/25 06:44 Pain Level 0 02/04/25 05:38 Allergies oxybutynin Allergy (Severe, Verified 12/26/24 14:22) Hallucinations/suicidal mirabegron (From Myrbetriq) Allergy (Unknown, Verified 12/26/24 14:22) suicidal ideations/dreams fentanyl Adverse Reaction (Severe, Verified 12/26/24 14:22) HALLUCINATIONS; SUICIDAL IDEATION duloxetine (From Cymbalta) Adverse Reaction (Intermediate, Verified 12/26/24 14:22) Nausea Precautions Isolation Standard precaution 02/04/25 05:38 IV IV Catheter Type [Left Saline Lock Antecubital] IV Catheter Gauge [Left 18 Antecubital] Diet Orders Category Date Time Status Heart Healthy Eating [DIET] Nutrition 02/04/25 Lunch Active Diagnostics 02/04/25 02/04/25 02/04/25 Range/Units 08:13 05:30 05:22 WBC 21.37 H (4.4-10.8) 10^3/uL RBC 4.81 (4.36-5.78) 10^6/uL Hgb 15.0 (13.5-17.5) g/dL Hct 44.2 (40.0-50.0) % MCV 92 (80-95) fL MCH 31.2 (27.0-33.0) pg MCHC 33.9 (32.0-36.0) % RDW 12.7 (11.8-14.1) % Plt Count 192 (130-400) 10^3/uL MPV 9.6 (8.0-11.0) fL Immature Gran % 0.0 % Neutrophils % 90.0 % Lymphocytes % 2.0 % Monocytes % 7.0 % Eosinophils % 1.0 % Basophils % 0.0 % Nucleated RBC % 0.0 (0.0-0.3) % Absolute Neutrophils 19.23 H (1.2-6.7) 10^3/uL Absolute Lymphocytes 0.43 L (1.2-3.4) 10^3/uL Absolute Monocytes 1.50 H (0.1-0.8) 10^3/uL Absolute Eosinophils 0.21 (0.0-0.7) 10^3/uL Absolute Basophils 0.00 (0.0-0.2) 10^3/uL RBC Morphology Normal VBG pH 7.43 H (7.31-7.41) VBG pCO2 40 L (41-51) mmHg VBG pO2 29 mmHg VBG HCO3 26 (23-28) mmol/L VBG Total CO2 23 L (24-29) mmol/L VBG O2 Saturation 59 % VBG Base Excess 2 (-2-3) mmol/L VBG Lactate 2.6 H* (<or=2.0) mmol/L Sodium 138 (136-145) mmol/L Potassium 3.4 L (3.5-5.1) mmol/L Chloride 102 (98-107) mmol/L Carbon Dioxide 25.7 (20.0-31.0) mmol/L Anion Gap 10.3 (3-11) mmol/L BUN 16 (9-23) mg/dL Creatinine 1.29 H (0.73-1.18) mg/dL Est GFR (CKD-EPI 2020) 55.95 (mL/min/1.73m2) Glucose 169 H (74-106) mg/dL Calcium 9.0 (8.3-10.6) mg/dL Magnesium 1.4 L (1.6-2.6) mg/dL Total Bilirubin 1.40 H (0.2-1.2) mg/dL AST 20 (<34) U/L ALT 25 (10-49) U/L Alkaline Phosphatase 84 (46-116) U/L Total Protein 6.9 (5.7-8.2) g/dL Albumin 4.2 (3.2-5.0) g/dL Urine Color Dark Yellow (Yellow) Urine Clarity Clear (Clear) Urine pH 6.0 (5-8) Ur Specific [place] 1.020 (1.005-1.025) Urine Protein 30 H (Neg-Trace) mg/dL Urine Ketones 15 H (Negative) mg/dL Urine Blood Trace-intact H (Negative) Urine Nitrite Positive H (Negative) Urine Bilirubin Small H (Negative) Urine Urobilinogen 4.0 H (Up to 0.2) mg/dL Ur Leukocyte Esterase Negative (Negative) Urine RBC 0-2 (0-2) HPF Urine WBC Negative (0-5) HPF Ur Epithelial Cells Rare (Negative) HPF Urine Crystals Negative (Negative) HPF Urine Bacteria Rare (Negative) HPF Urine Casts 0-2 Hyaline (Negative) LPF Urine Mucus Heavy (Negative) Ur Culture Indicated? No Urine Glucose 100 H (Negative) mg/dL COVID-19 Source Pending SARS-CoV-2 (PCR) Pending Influenza Type A (PCR) Pending Influenza Type B (PCR) Pending RSV (PCR) Pending 02/04/25 06:25 Blood Culture - Pending Blood 02/04/25 05:22 Blood Culture - Pending Blood Intake and Output - 24 Hour Total 02/04/25 05:05 thru 02/04/25 08:41 Intake Total 1650 Balance 1650 Weight 124.4 kg Intake: IV 1650 Falls Risk Assessment History of Falls Previous History 02/04/25 05:38 Contributing Factors Confusion,Impairments, 02/04/25 05:38 Incontinence Cognition Cognitive impairment 02/04/25 05:38 Fall Total Score 39 02/04/25 05:38 Level of Risk Moderate Risk 02/04/25 05:38 Notes 02/04/25 05:45 Nursing Notes by Audrey Golden Nursing Note: Assessment of LLE, old scab that appears to have reopened to L knee, significant redness noted below the knee wound. Initialized on 02/04/25 05:45 - END OF NOTE Attestation Statement: By documenting the first initial, last name, and credentials of the reporting nurse below, both parties acknowledge that all relevant information regarding the patient handoff has been communicated, and that all questions have been addressed to ensure continuity and safety of care. Additional Patient Information/Comments: Report Received From: Mere RICE in ED at 10 am
--- NOTE | 2025-02-04 13:09 | PT.INNT ---
Date of service: 02/04/25 Time of Service: 13:09 PT Notes Visit Reasons: cellulitis Spoke with Dr. Ramirez about patient and requested consult performed today to see if patient is able to weight bear on his left LE. Attempted to see patient, but patient sound asleep and only briefly opened his eyes one time with voice and gentle arm touch. Will hold PT today and see patient early tomorrow morning.
[2025-02-04] MEDS: Lactated Ringers 1,000 ML 150 ML IV (14:01)
[2025-02-04 14:34] LABS: COVID-19 PCR Negative (Negative); RSV PCR Negative (Negative)
[2025-02-04] MEDS: Lactated Ringers 1,000 ML 1000 ML IV (14:44)
[2025-02-04] MEDS: VANCOMYCIN/WATER (PEG) 1 GM/200 ML BAG IVPB (18:11)
[2025-02-04 18:17] LABS: Abs Immature Grans 0.09 10^3/uL (0.0-0.06); HCT 38.8 % (40.0-50.0); HGB 13.1 g/dL (13.5-17.5); Immature Grans % 0.4 %; MCH 30.8 pg (27.0-33.0); MCHC 33.8 % (32.0-36.0); MCV 91 fL (80-95); MPV 9.6 fL (8.0-11.0); Platelet Count 163 10^3/uL (130-400); RBC 4.25 10^6/uL (4.36-5.78); RDW 13.1 % (11.8-14.1); RDW-SD 43.6 fL; WBC 20.38 10^3/uL (4.4-10.8)
[2025-02-04 18:38] LABS: Magnesium 1.8 mg/dL (1.6-2.6)
[2025-02-04 18:39] LABS: ALT 20 U/L (10-49); AST 15 U/L (<34); Albumin 3.5 g/dL (3.2-5.0); Alkaline Phosphatase 67 U/L (46-116); Anion Gap 8.5 mmol/L (3-11); BUN 19 mg/dL (9-23); Bilirubin, Total 1.10 mg/dL (0.2-1.2); CO2 24.5 mmol/L (20.0-31.0); Calcium 8.3 mg/dL (8.3-10.6); Chloride 106 mmol/L (98-107); Glucose 154 mg/dL (74-106); Potassium 3.1 mmol/L (3.5-5.1); Sodium 139 mmol/L (136-145); Total Protein 5.9 g/dL (5.7-8.2)
[2025-02-04] MEDS: Apixaban 5 MG TAB PO (20:58)
[2025-02-04] MEDS: Normal Saline Flush 10 ML SYR IVP (20:58)
[2025-02-04] MEDS: Docusate Sodium 100 MG CAP PO (20:58)
[2025-02-05] MEDS: Lactated Ringers 1,000 ML 150 ML IV ×3 (00:38→17:31)
[2025-02-05 02:47] VITALS: BP 99/53; PULSE 74; RESP 14; TEMP 36.2; O2SAT 94
[2025-02-05 04:04] LABS: Abs Immature Grans 0.06 10^3/uL (0.0-0.06); HCT 39.1 % (40.0-50.0); HGB 13.1 g/dL (13.5-17.5); Immature Grans % 0.3 %; MCH 30.8 pg (27.0-33.0); MCHC 33.5 % (32.0-36.0); MCV 92 fL (80-95); MPV 9.6 fL (8.0-11.0); Platelet Count 144 10^3/uL (130-400); RBC 4.25 10^6/uL (4.36-5.78); RDW 13.0 % (11.8-14.1); RDW-SD 43.9 fL; WBC 19.33 10^3/uL (4.4-10.8)
[2025-02-05 04:19] LABS: Magnesium 1.7 mg/dL (1.6-2.6)
[2025-02-05 04:20] LABS: Vancomycin, Peak 12.6 ug/mL (25.0-40.0)
[2025-02-05 04:21] LABS: ALT 19 U/L (10-49); AST 16 U/L (<34); Albumin 3.3 g/dL (3.2-5.0); Alkaline Phosphatase 65 U/L (46-116); Anion Gap 6.3 mmol/L (3-11); BUN 17 mg/dL (9-23); Bilirubin, Total 1.00 mg/dL (0.2-1.2); CO2 25.7 mmol/L (20.0-31.0); Calcium 8.3 mg/dL (8.3-10.6); Chloride 106 mmol/L (98-107); Glucose 114 mg/dL (74-106); Potassium 3.2 mmol/L (3.5-5.1); Sodium 138 mmol/L (136-145); Total Protein 5.8 g/dL (5.7-8.2)
[2025-02-05] MEDS: VANCOMYCIN/WATER (PEG) 1 GM/200 ML BAG IVPB ×2 (05:47→17:00)
[2025-02-05 07:12] VITALS: BP 110/63; PULSE 77; RESP 18; TEMP 37.2; O2SAT 96
--- NOTE | 2025-02-05 08:10 | INITIAL_ITS ---
Date of service: 02/05/25 Time of Service: 08:11 Care Management Initial Assmt Initial Assessment Reason for Hospitalization: cellulitis of the left leg Functional Status/Living Situation Patient Presentation: Ed presented to the Ed early yesterday morning, via EMS, with c/o fever, generalized weakness and AMS. also stated that he has shortness of breath and a fever to 103. Ed lives at home with his . He has Parkinson's disease, and has been falling alot. Per report, it is getting increasingly difficult to care for Ed at home. Would like to offer HH services, PT is recommended, but would like to offer full supports of SN, PT/OT and SIDING COREBOARD INSPECTOR. Nickolas was sleeping when CM met with him today, but his , Mckenzie, and 1 of his daughters was present. Ed and Mckenzie have 5 children, none live at home, but they are all within 10 miles, and are very helpful. Mckenzie stated that Ed has been falling more frequently at home, and she is having a harder time caring for him. She wants to keep Ed in the home, and is open to HH services and also a [facility] referral. Referral was sent today to [facility] requesting planning intern, light housekeeping and lunch prep for Nickolas when he is home alone during the day. Ed had a PT consult that recommended HH PT vs SNf, and also an OT consult. OT consult was placed. Town of Residence: [facility] Resides with: Spouse (Mckenzie) Significant Other/Family: Local (5 adult children) Caregiver/Guardian: Mckenzie Natural Supports: Mckenzie, 5 children and 12? grandchildren Employment Status: Disabled Instrumental Activities of Daily Living (ADLs): Requires support Medications Medication Management: No Issues/Barriers identified Physical Functioning/Mobility Assistive Device: uses a 4WW, but PT is recommending front wheeled only - will issue at discharge as long as he does not have a 2WW at home. Advance Directives Advance Directives: Do you have an Advance Directive: Y , : AD On File at [facility]: Y 11/16/19, : Date Asked 01/20/18 12/26/24, 14:25 AD Date Reviewed 02/04/25 02/04/25, :30 COLST On File at [facility] COLST Date Scanned Code Status Resuscitation Status Full Code Insurance Coverage/Financial Issues Insurance: Health Plans ([facility] ONLY!) - [id number] Medicare Part A & B Care Team Visit Care Team Role Provider Type Heena Martínez NP Primary Care Provider NURSE PRACTITIONER InPatient Brandon Saini Other Providers OTHER John Fontana MD Emergency Provider [facility] STAFF PHYSICIAN Raúl Ramirez MD Admit Provider [facility] STAFF PHYSICIAN Attending Provider Discharge Potential Discharge Needs: PT Evaluation and PCP F/U Appt Anticipated Barriers to Discharge: None Identified Patient/Family Education Needs: Review discharge instructions, discuss Ask Me Three Plan: Anticipate that Nickolas will be discharged home with new services of [facility] SN, PT/OT and SIDING COREBOARD INSPECTOR. He will f/u with his PCP and his community team and continue per his plan of care. He will likely transport home in a private vehicle with family. CM will continue to follow and update the plan as needed. Social Determinants of Health Screening Social Determinants of health last assessed in clinic: 02/05/25 Will the Patient Participate in the Screening?: Yes Do you worry about having a steady place to live?: no Problems where you live: no known problems In the past 12 months, have you had to go without electric, gas, oil or water in your home?: no 1. Within the past 12 months, we worried whether our food would run out before we got money to buy more.: Don't know/refused 2. Within the past 12 months, the food we bought just didn't last and we didn't have money to get more.: Don't know/refused Has lack of transportation kept you from medical appointments or from doing things needed for daily living?: no Has anyone in your life made you feel unsafe or unsupported?: no How hard is it for you to pay for the very basics like food, housing, medical care, and heating? Would you say it is:: Not hard at all Do you want help finding or keeping work or a job?: I do not need or want help If for any reason you need help with day-to-day activities such as bathing, preparing meals, shopping, managing finances, etc., do you get the help you need?: I get all the help I need How often do you feel lonely or isolated from those around you?: Never Do you speak a language other than Ukrainian at home?: No Does the patient want assistance with any of the above?: No PFSH All Active Problems (Updated 02/04/25 @ 09:27 by John Fontana MD) Hyperbilirubinemia (Acute) Cellulitis of left leg (Acute) Urgency incontinence (Acute) Obesity (BMI 30-39.9) (Chronic) BPH w urinary obs/LUTS (Chronic) Chronic anticoagulation (Chronic) Eliquis for hx of unprovoked RLE DVT Memory loss (Chronic) Right rotator cuff tear (Chronic ~11/2021) Dysphagia (Chronic) Frequent falls (Chronic) Constipation (Chronic) Prediabetes (Chronic) Major depressive disorder (Chronic) [place] [facility] [place] Sensorineural hearing loss, bilateral (Chronic) Parkinson's disease (Chronic) Bilateral pallidotomy Obstructive sleep apnea syndrome (Chronic) Unable to tolerate CPAP Non-alcoholic fatty liver disease (Chronic) Insomnia (Chronic) Hyperlipidemia (Chronic) Gastroesophageal reflux disease (Chronic) Lumbosacral spondylosis without myelopathy (Chronic) Medical History Risk for falls Deep vein thrombosis (DVT) of right lower extremity (~02/2021) Essential hypertension Surgical History Status post reverse arthroplasty of left shoulder (08/02/20) And left shoulder arthroscopic biopsy 08/29/21 for continued pain History of revision of total replacement of left hip joint (07/21/19) S/P vasectomy S/P tonsillectomy 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 Sister No problems noted. Son Heart disease Son No problems noted. Son Depression Daughter No problems noted. Daughter No problems noted. Paternal Grandfather Heart disease Paternal Grandmother No problems noted. Maternal Grandfather No problems noted. Maternal Grandmother Depression Social History Smoking/Tobacco Use Status: Former Tobacco Use tobacco type: cigarettes Quit Date: 03/09/06 Pack-years: 25 Tobacco: How many years used: 20 Quit status: has quit before Smoking risk assessment performed?: Yes Alcohol Intake: current Alcohol Intake frequency: holidays/special occasions only Drug use: Occasionally Substance use type: marijuana Adopted: No Caregiver/Support person: No Foster care: No Household members: spouse Housing: house Number of Children: 3 number of grandchildren: 6 Communication Needs: Hard of Hearing and Corrective Lenses Education Level: high school Do you need help understanding health information?: Rarely Pets and animals: Yes Pets and animals: dog(s) Sexually active: No Do you think of yourself as: straight/heterosexual What is your relationship status?: How often do you talk on the phone with friends or family?: twice per week How often do you get together with friends or relatives?: once per week How often do you attend jehovah's witness or hoahaoism services?: decline to answer Do you belong to any clubs or organized social groups?: no Panel score (0-1 are the most socially isolated patients): 2 Tati/Mu-Ism: No preference Special tati needs: No Seatbelt use: always Helmet use: No Drive intox or ride w/intox truck driver instructor: No Do you feel safe at home: Yes Do you feel safe in your relationship?: Yes Additional Social history: [facility] Anticipated HH Services Anticipated HH Services at Discharge [facility] Needed, SIDING COREBOARD INSPECTOR, OT, PT and RN Anticipated Date of Discharge: 02/07/25. Following Provider:
--- NOTE | 2025-02-05 08:24 | IN_ITS ---
Date of service: 02/05/25 Time of Service: 07:55 PT Notes Visit Reasons: cellulitis Inpatient Physical Therapy Evaluation Certification Period:? From _02/05 ?? Through ___02/10/25___ I certify the need for these services as being medically necessary and skilled as furnished under this plan of treatment while under my care. Please sign and return within 14 days if you agree with the plan of care listed below.? Thank you for this referral! ? Referring Physician? Date Referring Doctor:? Raúl Ramirez MD PT Orders: PT CONSULT for exacerbation of chronic condition Precautions: fall risk Patient Profile/Admitting Diagnosis:? The patient is a 64 yo male adm on 02/04/25 for cellulitis of left leg with recent wound and distal erythema/edema suggestive of cellulitis, fever, leukocytosis, and lactic acidosis with a h/o Parkinson's. Admitted for IV antibiotics and supportive care. Telemetry will be used to monitor for worsening symptoms that might indicate inadequate antibiotic coverage. Recommended an US of his L LE when available Past Medical History: All Active Problems (Updated 02/04/25 @ 09:27 by John Fontana MD) Hyperbilirubinemia (Acute) Cellulitis of left leg (Acute) Urgency incontinence (Acute) Obesity (BMI 30-39.9) (Chronic) BPH w urinary obs/LUTS (Chronic) Chronic anticoagulation (Chronic) Eliquis for hx of unprovoked RLE DVT Memory loss (Chronic) Right rotator cuff tear (Chronic ~11/2021) Dysphagia (Chronic) Frequent falls (Chronic) Constipation (Chronic) Prediabetes (Chronic) Major depressive disorder (Chronic[place] [facility] [place] Sensorineural hearing loss, bilateral (Chronic) Parkinson's disease (Chronic) Bilateral pallidotomy Obstructive sleep apnea syndrome (Chronic) Unable to tolerate CPAP Non-alcoholic fatty liver disease (Chronic) Insomnia (Chronic) Hyperlipidemia (Chronic) Gastroesophageal reflux disease (Chronic) Lumbosacral spondylosis without myelopathy (Chronic) Medical History Risk for falls Deep vein thrombosis (DVT) of right lower extremity (~02/2021) Essential hypertension Surgical History Status post reverse arthroplasty of left shoulder (08/02/20) And left shoulder arthroscopic biopsy 08/29/21 for continued pain History of revision of total replacement of left hip joint (07/21/19) S/P vasectomy S/P tonsillectomy Status post total replacement of left hip (08/25/08) S/P colonoscopy (05/11/20) S/P appendectomy S/P brain surgery Bilateral pallidotomy Former Tobacco Use tobacco type: cigarettes Quit Date: 03/09/06 Pack-years: 25 Medications: See chart Social History/Home Situation: Patient reports he lives in [facility] with his . 4 steps with rail to enter. I haven't walked in a while. Reports he has a 4 wheeled rolling walker at home and I fall a lot. Reports he has MOW and his normally assists with showering, reportedly in standing. Reports his cooks when she is not exhausted. Subjective: Reports his left hip is chronically in IR. Objective: On IV fluids, clark catheter upon arrival. Mental Status: Patient is arousable and able to answer questions, but sometimes requiring multiple times of asking. ? secondary to [place] vs mental status. Pain: Reports left ankle pain Vital Signs: 7:12 by nursin/63, 77 bpm, 96% ROM/Strength: Upper extremities: difficulty with bilateral UE movement above shoulder height. Able to use his right UE for self feeding. Lower extremities: Minimal active movement of LE in supine Sensation: not tested Soft tissue/edema: L LE edema with erythema Bed Mobility: Supine to sit mod assist x 2 with head of bed elevated and cuing. patient able to attempt to move LE but with minimal success. Transfers: Sit to stand mod assist x 2 with cuing, assist for anterior weight shifting. SPT with walker with min/mod x 2 with walker with cuing for foot movement and for feeling the chair prior to attempting to sit. Patient with signifcant hip, knee and trunk flexion with performance. Is able to weight bear on bilateral LE. Gait: not performed Balance: min/mod x 2 for standing. sitting on EOB with close supervision once assisted to a good sitting position [facility] AM-PAC 6 clicks Basic Mobility Inpatient Short Form: Raw Score:?9? CMS Score:81.38% Informed Consent/Education:? Patient instructed in purpose of PT consult and plan of care and is agreeable Assessment:? Patient is a? 64 yo male adm on 02/04/25 for cellulitis of left leg with recent wound and distal erythema/edema suggestive of cellulitis, fever, leukocytosis, and lactic acidosis with a h/o Parkinson's.? Patient presents with left LE pain, decreased strength, decreased functional mobility, decreased balance and difficulty with ambulation. The patient would benefit from skilled inpatient services to improve these impairments to maximize function and safety. Patient is assessed as:? Low 14668??complexity based on the following: History: overweight, [place] Examination: see above Presentation: Stable and uncomplicated? Decision Making:? Low (0 history, 1-2 exam, stable/predictable, easy 20) Physical Therapy Goals: 5 days Able to get in/out of bed with supervision only. Able to perform sit to/from stand with supervision only. Able to walk 10 feet with rolling walker with supervision only. Able to go up and down 2-3 steps with 1 rail with min assist only. Equipment needs met Independent with home exercise program Plan of Care/Treatment Plan: 1-2x/day, 7 days/week x 5 days Plan of care has been reviewed with the RISK ASSESSOR providing the service under Physical Therapy direction. Initiate Physical Therapy intervention for strengthening, bed mobility, transfers, gait, stairs, balance training, use of assistive device. DISCHARGE RECOMMENDATIONS: HHTP vs short term rehab. Recommend inpatient OT eval. Reports he only has a 4 wheeled rolling walker at home. May need a 2 wheeled rolling walker. Continue MOW. Informed consent Prior to the start and throughout the course of the examination and treatment, patient was made aware of the specifics and purpose of the physical assessment and treatment procedures. Appropriate draping procedures were utilized to protect modesty where applicable. Billing Charges: Treatment Units Time Duration Manual Therapy(00936) Hands-on techniques to modulate pain increase joint rang e of motion reduce or eliminate soft tissue swelling, inflammation, or restriction facilitate relaxation and improve contractile and non-contractile tissue extensibility ? ? Therapeutic Procedures (70223) Instruction in therapeutic exercises to develop strength and endurance, range of motion and flexibility. HEP instruction and review: Provided skilled instruction in proper exercise performance: Provided skilled manual cues to facilitate proper muscle recruitment and/or movement pattern Neurological Re-Education(65410) To improve balance, coordination, kinesthetic and proprioceptive sensations. ? ? Ultrasound(90872) To promote healing. ? ? Gait Training(39744) ? ? Therapeutic Activity(29176) Instruction in dynamic activities with one on one patient contact by the provider to improve functional performance as follows: 1 ? 12 ? Self Care Training(08400) ? ? E-Stim (Attended)(13980) ? ? Low IE(32995) 1 16 Mod IE(84310) ? ? High IE(98700) ? ? Time Coded Treatment Time ? 12 Total Treatment Time ? 28
[2025-02-05] MEDS: cefTRIAXone 2 GM/50 ML BAG IVPB (09:09)
[2025-02-05] MEDS: Docusate Sodium 100 MG CAP PO ×2 (09:20→19:47)
[2025-02-05] MEDS: Escitalopram 10 MG TAB PO (09:20)
[2025-02-05] MEDS: Apixaban 5 MG TAB PO ×2 (09:20→19:47)
[2025-02-05] MEDS: Doxycycline Hyclate 100 MG CAP PO ×2 (09:20→20:37)
[2025-02-05] MEDS: Normal Saline Flush 10 ML SYR IVP ×2 (09:21→19:47)
[2025-02-05] MEDS: Acetaminophen 325 MG TAB 650 MG PO (09:24)
[2025-02-05 11:35] VITALS: BP 100/64; PULSE 70; RESP 18; TEMP 36.6; O2SAT 94
--- NOTE | 2025-02-05 12:08 | PHA.REVIEW2 ---
Pharmacy Admission Review Admission Clinical Review Admission Pharmacy Review: Cellulitis of left leg (Acute) oxybutynin Allergy (Severe, Verified 12/26/24 14:22) Hallucinations/suicidal mirabegron (From Myrbetriq) Allergy (Unknown, Verified 12/26/24 14:22) suicidal ideations/dreams fentanyl Adverse Reaction (Severe, Verified 12/26/24 14:22) HALLUCINATIONS; SUICIDAL IDEATION duloxetine (From Cymbalta) Adverse Reaction (Intermediate, Verified 12/26/24 14:22) Nausea Resuscitation Status DNR/DNI Height 6 ft Weight 128.6 kg Pharmacy Admission Review Renal Dosing Renal Dosing: BUN 17 mg/dL (9-23) 02/05/25 03:55 Creatinine 1.05 mg/dL (0.73-1.18) 02/05/25 03:55 Medications needing adjustments: Reviewed (SCR=1.05; CRCL=98; NO MEDS NEED ADJUSTMENT) Anticoagulation Anticoagulation: Hgb 13.1 g/dL (13.5-17.5) L 02/05/25 03:55 Hct 39.1 % (40.0-50.0) L 02/05/25 03:55 Plt Count 144 10^3/uL (130-400) 02/05/25 03:55 Creatinine 1.05 mg/dL (0.73-1.18) 02/05/25 03:55 DVT Prophylaxis: Reviewed Therapeutic Anticoagulation: Reviewed Medications: Apixaban Opiate Usage Evaluate Pain Scale/Pains Meds: N/A Relevant Labs Relevant Labs: Sodium 138 mmol/L (136-145) 02/05/25 03:55 Potassium 3.2 mmol/L (3.5-5.1) L 02/05/25 03:55 Chloride 106 mmol/L (98-107) 02/05/25 03:55 Magnesium 1.7 mg/dL (1.6-2.6) 02/05/25 03:55 Electrolytes, C-Reactive P, ESR: Reviewed (will suggest giving potassium for K+=3.3 and magnesium (1.7 today)) DM Control DM Control: Reviewed (am [id number]=234; no history of DM) Cardiac Review BP, HR, EF%: Reviewed (po=719/64; hr=70) QTc Review QTc: Reviewed (xxt=135; avoid qtc prolonging meds; currently on lexapro will make provider aware) IV to PO Switch IV Medications: Reviewed (all meds po except antibiotics) Home Meds Home Med List reviewed: Reviewed (home meds ordered) Current Meds Current Medication Order Review: Reviewed Pharmacy Antibiotic Review Pharmacy Antibiotic Activity: Abx regimen adjustment (reviewed; recommended to discontinue IV vanco or doxycycline (probably don't need both); urine and blood ng x 24 hours)
[2025-02-05 14:16] VITALS: BP 120/69; PULSE 68; RESP 18; TEMP 36.6; O2SAT 95
--- NOTE | 2025-02-05 17:08 | W.PM.PROGNOT ---
Date of Service Date of service: 02/05/25 Time of Service: 08:00 Assessment and Plan Assessment and plan (1) Cellulitis of left leg: Status: Acute Assessment and plan: Appearance of left leg, with recent wound and distal erythema/edema suggestive of cellulitis With fever, leukocytosis, lactic acidosis, will admit for IV antibiotics and supportive care Telemetry, monitor for worsening symptoms that might indicate inadequate antibiotic coverage Ceftriaxone, doxycycline, vancomycin US LE when available (2) Parkinson's disease: Status: Chronic Assessment and plan: Not currently on meds Physical therapy (3) Frequent falls: Status: Chronic Assessment and plan: PT as above (4) BPH w urinary obs/LUTS: Status: Chronic Assessment and plan: Greenberg placed, large amount of urine behind the prostate (5) Non-alcoholic fatty liver disease: Status: Chronic Assessment and plan: Chronic transaminitis (6) Obesity (BMI 30-39.9): Status: Chronic Assessment and plan: Patient's is not able to safely care for him at home due to her small stature (7) Chronic anticoagulation: Status: Chronic Assessment and plan: On apixaban for unprovoked RLE DVT (8) Major depressive disorder: Status: Chronic Assessment and plan: Continue home regimen Subjective Subjective Interval history since last seen: Mr. Gary is somnolent but rousable. LLE is not painful. has visited today. Exam Narrative Exam Narrative: General: This is an obese, somnolent man in no distress HEENT: Normocephalic, atraumatic CV: RRR Resp: CTAB Abd: soft, NTND : scrotum is very large and moderately erythematous and edematous, nontender MSK: voluntary motion x4. 3 cm round recent wound with young eschar. Distal to wound leg is erythematous and edematous suggestive of venous stasis. Right leg without edema nor erythema. Neuro: awake, alert, slow speech. BUE tremor. Objective Last Vital Signs Temp 36.6 C 02/05/25 14:16 Pulse 68 02/05/25 14:16 Resp 18 02/05/25 14:16 BP 120/69 02/05/25 14:16 Pulse Ox 95 02/05/25 14:16 Laboratory Results - last 24 hr 02/04/25 02/05/25 18:00 03:55 WBC 20.38 H 19.33 H RBC 4.25 L 4.25 L Hgb 13.1 L 13.1 L Hct 38.8 L 39.1 L MCV 91 92 MCH 30.8 30.8 MCHC 33.8 33.5 RDW 13.1 13.0 Plt Count 163 144 MPV 9.6 9.6 Immature Gran % 0.4 0.3 Neutrophils % 89.8 90.3 Lymphocytes % 2.3 2.5 Monocytes % 7.0 6.5 Eosinophils % 0.3 0.1 Basophils % 0.2 0.3 Nucleated RBC % 0.0 0.0 Absolute Neutrophils 18.30 H 17.45 H Absolute Lymphocytes 0.47 L 0.48 L Absolute Monocytes 1.43 H 1.26 H Absolute Eosinophils 0.06 0.02 Absolute Basophils 0.04 0.06 VBG Lactate 1.9 1.1 Sodium 139 138 Potassium 3.1 L 3.2 L Chloride 106 106 Carbon Dioxide 24.5 25.7 Anion Gap 8.5 6.3 BUN 19 17 Creatinine 1.21 H 1.05 Est GFR (CKD-EPI 2020) 60.24 70.95 Glucose 154 H 114 H Calcium 8.3 8.3 Magnesium 1.8 1.7 Total Bilirubin 1.10 1.00 AST 15 16 ALT 20 19 Alkaline Phosphatase 67 65 Total Protein 5.9 5.8 Albumin 3.5 3.3 Vancomycin Peak 12.6 L VTE Prohylaxis Risk Level: Moderate/High Risk Contraindications: None Prophylaxis: Patient anticoagulated Time Spent with Patient Time Spent with Patient: 25-34 minutes Time was spent: preparing to see the patient(eg.review tests), obtaining and/or reviewing separately otained hiistory, ordering medications,tests, procedures, referring, communicating with other health critical care nurse specialist, indepentently interpreting results, counseling the patient and care coordination
--- NOTE | 2025-02-05 17:12 | NUR.NOTE ---
Nursing Note: Patients' in room, reports Patient has been having intermittent hallucinations, he told her he saw ants in the ram. The patient endorses that he did see ants in the ram earlier, but none at this time. Will continue to monitor for hallucinations both auditory and visual.
[2025-02-05 19:33] VITALS: BP 104/56; PULSE 73; RESP 16; TEMP 37.3; O2SAT 96
[2025-02-05 23:03] VITALS: BP 121/67; PULSE 72; RESP 16; TEMP 36.8; O2SAT 94
[2025-02-06] VITALS (7 sets, daily range): BP systolic 103–128; BP diastolic 63–70; PULSE 64–67; RESP 17–19; TEMP 36.2–37; O2SAT 93–96
--- NOTE | 2025-02-06 | DI.US_ITS ---
Exam(s) US LOWER EXTREMITY VENOUS LT EXAM: US LOWER EXTREMITY VENOUS LT CLINICAL HISTORY: history of PE, LLE cellulitis TECHNIQUE: Grayscale, color, and doppler imaging of the deep venous system of the left lower extremity was performed. COMPARISON: US US LOWER EXTREMITY VENOUS RT from 05/27/2023. This is opposite side FINDINGS: There is no evidence of intraluminal thrombus and there is normal compression and augmentation demonstrated within the common femoral vein, femoral vein, and popliteal vein. However, there is intraluminal thrombus evident in the left greater saphenous vein from the mid thigh to the distal thigh, with clot length 11 cm. The ipsilateral saphenofemoral junction is patent. There is no intraluminal thrombus at the saphenofemoral junction. The cephalad extent of the intraluminal thrombus is not close to the saphenofemoral junction at this time. Scanning of the calf reveals no evidence of DVT in the posterior tibial veins. IMPRESSION: There is intraluminal thrombus (11 cm length) in the greater saphenous vein of the left lower extremity, this in the mid-distal thigh. Does not extend to the saphenofemoral vein level at this time. DATA REPOSITORY:
[2025-02-06] MEDS: Lactated Ringers 1,000 ML 150 ML IV (00:40)
[2025-02-06] MEDS: VANCOMYCIN/WATER (PEG) 1 GM/200 ML BAG IVPB (06:00)
[2025-02-06 07:15] LABS: Abs Immature Grans 0.07 10^3/uL (0.0-0.06); HCT 37.8 % (40.0-50.0); HGB 13.2 g/dL (13.5-17.5); Immature Grans % 0.5 %; MCH 32.2 pg (27.0-33.0); MCHC 34.9 % (32.0-36.0); MCV 92 fL (80-95); MPV 10.4 fL (8.0-11.0); Platelet Count 156 10^3/uL (130-400); RBC 4.10 10^6/uL (4.36-5.78); RDW 12.7 % (11.8-14.1); RDW-SD 43.1 fL; WBC 13.97 10^3/uL (4.4-10.8)
[2025-02-06 07:35] LABS: ALT 20 U/L (10-49); AST 17 U/L (<34); Albumin 3.3 g/dL (3.2-5.0); Alkaline Phosphatase 64 U/L (46-116); Anion Gap 8.8 mmol/L (3-11); BUN 12 mg/dL (9-23); Bilirubin, Total 0.60 mg/dL (0.2-1.2); CO2 26.2 mmol/L (20.0-31.0); Calcium 8.4 mg/dL (8.3-10.6); Chloride 103 mmol/L (98-107); Glucose 110 mg/dL (74-106); Potassium 3.0 mmol/L (3.5-5.1); Sodium 138 mmol/L (136-145); Total Protein 5.6 g/dL (5.7-8.2)
[2025-02-06] MEDS: Doxycycline Hyclate 100 MG CAP PO ×2 (08:42→20:38)
[2025-02-06] MEDS: Apixaban 5 MG TAB PO (08:42)
[2025-02-06] MEDS: Docusate Sodium 100 MG CAP PO ×3 (08:42→20:14)
[2025-02-06] MEDS: Escitalopram 10 MG TAB PO (08:42)
[2025-02-06] MEDS: cefTRIAXone 2 GM/50 ML BAG IVPB (08:43)
[2025-02-06] MEDS: Normal Saline Flush 10 ML SYR IVP ×3 (08:55→20:15)
--- NOTE | 2025-02-06 09:13 | CMPROGNOTE_ITS ---
Date of service: 02/06/25 Time of Service: 09:13 Care Management Progress Note Progress Note Text Progress Note Text: Ed was lying in bed and appeared to be sleeping comfortably when CM met with him, and is accompanied by his Mckenzie. Ed is currently being treated for cellulites of the left leg. Imaging done today, revealed an 11 cm intraluminal thrombus in the greater saphenous vein of the left lower extremity, this in the mid-distal thigh. See progress note for information on management. Once Ed is medically ready, Mckenzie plans to take him home and will provide transportation. They are willing to accept new [facility] services as recommended. Discharge Potential Discharge Needs: PT Evaluation and PCP F/U Appt Anticipated Barriers to Discharge: None Identified Patient/Family Education Needs: Review discharge instructions, discuss Ask Me Three Transportation: Private vehicle Plan: Anticipate that Nickolas will be discharged home with new services of [facility] SN, PT/OT and [facility]. He will f/u with his PCP and his community team and continue per his plan of care. He will likely transport home in a private vehicle with family. CM will continue to follow and update the plan as needed. Social Determinants of Health Screening Social Determinants of health last assessed in clinic: 02/06/25 Will the Patient Participate in the Screening?: Yes Do you worry about having a steady place to live?: no Problems where you live: no known problems In the past 12 months, have you had to go without electric, gas, oil or water in your home?: no 1. Within the past 12 months, we worried whether our food would run out before we got money to buy more.: Never true 2. Within the past 12 months, the food we bought just didn't last and we didn't have money to get more.: Never true Has lack of transportation kept you from medical appointments or from doing things needed for daily living?: no Has anyone in your life made you feel unsafe or unsupported?: no How hard is it for you to pay for the very basics like food, housing, medical care, and heating? Would you say it is:: Not hard at all Do you want help finding or keeping work or a job?: I do not need or want help If for any reason you need help with day-to-day activities such as bathing, preparing meals, shopping, managing finances, etc., do you get the help you need?: I get all the help I need How often do you feel lonely or isolated from those around you?: Never Do you speak a language other than Venezuelan at home?: No Does the patient want assistance with any of the above?: No
--- NOTE | 2025-02-06 10:37 | PT.INTREAT ---
PT Notes Visit Reasons: Cellulitis Inpatient Physical Therapy Treatment Note [facility] Date:02/06/2025 PRECAUTIONS: Parkison?s, fall, standard, cellulitis LLE, Greenberg catheter SUBJECTIVE: Pt had a difficult time communicating today, as he was in pain. Pt was asked if he was on any medication for his Parkinson?s. Pt quickly replied with no. OBJECTIVE: General observation: Pt in recliner, eyes closed arms down by side with head tilted back and to the right. Erythema left lower leg( known cellulits) with additional area to left knee medial joint space? PAIN: unable to provide number. In LLE, specifically the left ankle/calf VITALS: Monitored by nursing First treatment Therapeutic Activities (17527x[]): Direct one-on-one instruction in dynamic activities to improve functional performance. ? BED MOBILITY/TRANSFERS? Sit-stand: from recliner, pt needed FWW and mod A of 2. Pt needed a verbal countdown of when to start to stand.? Stand-sit: to the bed. Pt needed Min A of 2 from FWW. Pt needed assistance to perform controlled decent.? Chair-bed: FWW with Mod A of 2. Pt needed significant verbal cueing for walker placement and weight shift, as pt tended to lean back. Sit - supine Mod A of 2 for trunk , LEs and Catheter bag ? Provided skilled cues and instruction on performance and technique throughout. Second Treatment: Therapeutic Activities (82263e[]): Direct one-on-one instruction in dynamic activities to improve functional performance. ? BED MOBILITY/TRANSFERS? Sit-stand: from stretcher, pt needed FWW and min A of 1 and SBA of 1. ? Stand-sit: to the recliner. Pt needed Min A of 1 from FWW. Pt continued to need assistance to perform controlled decent.?PT provided verbal and tactile cueing for hand placement from FWW to recliner Stretcher to recliner: FWW with Mod A of 2. Pt needed significant verbal cueing for walker placement and weight shift, as pt tended to lean back. Difficulty stepping backwards ? Provided skilled cues and instruction on performance and technique throughout. ASSESSMENT:?Pt was able to sit to stand FWW Mod A of 2 in the first session. PT noticed that pt had difficulty with standing and ambulating with the walker, as the walker was to high. PT lowered the walker height. This allowed the pt to transfer their hands from the bed to the walker more easily during sit to stand. This adjustment also allowed pt to ambulate more efficient as it allowed the pt to have proper body mechanics and more effective motor recruitment. Pt ambulated with the walker more efficient when he was walking forwards. Pt continues from shuffling his feet and has difficulty keeping the walker close to him. Walking ambulating backwards pt struggles a great deal. He will start moving his feet in place, and lean his trunk back, this causes him to feel unbalanced and thus makes him want to lean back and sit down. However, pt isn?t aware of this. Pt would benefit from a big and loud program to focus on pt performing large motor movements to help limit his movement from degrading more. PT checked with pt in the afternoon after his ultrasound. The ultrasound confirmed that pt has a DVT. After discussion with RN. PT will let pt rest with medication from nursing for 12 before starting another treatment. Next goal for PT is to have the pt ambulate in the room with a chair following. ?PLAN: 1-2x/day, 7 days/week x 1 week. Plan of care has been reviewed with the HEATING UNIT MECHANIC providing the service under Physical Therapy direction. Initiate Physical Therapy intervention for strengthening, bed mobility, transfers, gait, stairs, balance training, use of assistive device. TREATMENT CODE/TIME: First treatment: 51369/9:20am-10:15am Second Treatment: 29937/11:13am-11:27am DISCHARGE RECOMMENDATION: SNF VS HHPT Written By: Mendel Baeza DPTS Supervised by: Mala Waldron PT
--- NOTE | 2025-02-06 12:58 | OTIE_ITS ---
Occupational Therapy Notes Inpatient Occupational Therapy Evaluation Date: 02/06/25 Referring Doctor:Raúl Ramirez OT Orders: Non-Urgent- Exacerbation Chronic Condition Precautions: Fall, Standard, DNR/DNI PATIENT PROFILE/ADMITTING DIAGNOSIS: Pt is a 64 year old male who is admitted after presenting to the ED with a clinical impression of fever, generalized weakness, altered mental status. His call EMS d/t his ongoing symptoms. Past Medical History: All Active Problems (Updated 02/04/25 @ 09:27 by John Fontana MD) Hyperbilirubinemia (Acute) Cellulitis of left leg (Acute) Urgency incontinence (Acute) Obesity (BMI 30-39.9) (Chronic) BPH w urinary obs/LUTS (Chronic) Chronic anticoagulation (Chronic) Eliquis for hx of unprovoked RLE DVTMemory loss (Chronic) Right rotator cuff tear (Chronic ~11/2021) Dysphagia (Chronic) Frequent falls (Chronic) Constipation (Chronic) Prediabetes (Chronic) Major depressive disorder (Chronic) ECT at [facility] 1998Sensorineural hearing loss, bilateral (Chronic) Parkinson's disease (Chronic) Bilateral pallidotomyObstructive sleep apnea syndrome (Chronic) Unable to tolerate CPAPNon-alcoholic fatty liver disease (Chronic) Insomnia (Chronic) Hyperlipidemia (Chronic) Gastroesophageal reflux disease (Chronic) Lumbosacral spondylosis without myelopathy (Chronic) Medical History Risk for falls Deep vein thrombosis (DVT) of right lower extremity (~02/2021) Essential hypertension Surgical History Status post reverse arthroplasty of left shoulder (08/02/20) And left shoulder arthroscopic biopsy 08/29/21 for continued painHistory of revision of total replacement of left hip joint (07/21/19) S/P vasectomy S/P tonsillectomy 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 He notes that he utilizes a sock aid for his don and doffing (B) socks. He requires (A) for his LE dressing. He has a walk in shower with a seat. His notes that there are two seats in the shower which pt states that he trips on. He has a FWW, cane and an electric wheelchair which he needs for community ambulation. He has a small step into the shower which he does have trouble getting in and out. Functionally he notes that he likes to be (I). His does (A) him as needed. Equipment owned/DME: shower seat, grab bars, fww, electric wheelchair, cane, sock aid SUBJECTIVE: Pt was sitting when OT arrived with his present in the room. His notes that he is tired. OBJECTIVE: General Observation: Tremor in resting state and not present with OT, clark catheter in place, IV in the (R) UE forearm and (L) elbow Mental Status: A&Ox3 Pain: c/o pain in the (L) lower leg with increased redness and sensitivity to palpation. ROM: RUE AROM WFL L UE AROM WFL STRENGTH: RUE strong automatic oven operator and 4+/5 throughout globally LUE strong automatic oven operator and 4+/5 throughout globally FUNCTIONAL MOBILITY/ADLS: Transfers with (A) BATHING Pt denies. He has AROM WFL to wash his (B) UE, face and abdomen (I), LE would require mod (A) throughout with min vc. DRESSING Dressing UE Mod (A) [facility] Dressing LE sock aide utilization at baseline which pt is (I) with TOILETING on toilet (I) with toileting hygiene, (A) with functional mobility to and from EATING able to bring liquid to mouth, difficulty with smaller pill with nursing but able to swallow two larger pills with nursing present. BALANCE: Static sitting Good Dynamic Sitting Fair Static Standing Fair Dynamic Standing Poor SPECIAL TESTS: Daily Activity Limitations Standardized Measure [facility] AM -PAC ?6 clicks? Daily Activity Inpatient Short Form: Raw score: 15 Standardized score: 34.69 CMS score: 56.46% INFORMED CONSENT/EDUCATION: Pt instructed in purpose of OT Consult and plan of care. ASSESSMENT: Patient is a 64-year-old male referred to occupational therapy services with diagnosis of fever, generalized weakness, altered mental status. Patient presents with clinical signs and symptoms consistent with dx with exacerbation of Parkinson's Disease symptoms, as demonstrated by the following impairment level findings/functional limitations: Impairments in ADL/IADL and leisure activities, decreased functional mobility required for ADL performance, increased fatigue, increased tone and tightness in the (B) UE/LE, decreased functional activity tolerance, tremors in (B) UE per pt report, dyphagia, decreased functional mobilty in bed. AMPAC score 15 Patient is assessed as a Moderate 34019 complexity based on the following: History: see above Examination: see functional limitations as noted above Presentation: evolving Decision Making: moderate complexity, AMPAC score 15 GOALS Goals x1 week 1. Dressing pt will be able to demonstrate UE dressing (I) and LE mod (I) with sock aid 3 times with min vc 3. Bathing pt will be (I) UE bathing and min (A) LE bathing seated in chair 3 times with min vc throughout 4. Toileting pt will be able to demonstrate (I) with toileting hygiene 3 times 5. Eating (I) seated in chair PLAN OF CARE/TREATMENT PLAN: 1x/day, 3-5 days/ week x 1week Initiate Occupational Therapy Services for bathing, dressing, grooming, toileting, eating, transfer training. DISCHARGE RECOMMENDATIONS OT recommends pt return home with HH services when medically cleared per MD. OT also recommends hospital bed due to pts dysphagia and to increase his functional (I) and safety with bed mobility. TREATMENT TIME/MINUTES/CODES 02438, 30 minutes Deborah Wei OTR/[facility] [place], [place]
[2025-02-06] MEDS: Potassium Chloride 20 MEQ TABCR 40 MEQ PO ×4 (13:20→20:14)
[2025-02-06] MEDS: Acetaminophen 325 MG TAB 650 MG PO (15:08)
[2025-02-06] MEDS: cefTAZidime 2,000 MG in Normal Saline 100 ML 200 MG IVPB ×2 (16:21→23:39)
--- NOTE | 2025-02-06 18:26 | W.PM.PROGNOT ---
Date of Service Date of service: 02/06/25 Time of Service: 18:27 Assessment and Plan Assessment and plan (1) Cellulitis of left leg: Status: Acute Assessment and plan: Appearance of left leg, with recent wound and distal erythema/edema suggestive of cellulitis With fever, leukocytosis, lactic acidosis, admitted for IV antibiotics and supportive care Unfortunately, seems to be worsening with ceftriaxone, doxycycline, vancomycin. Not exudative, no MRSA risks, will stopp vanco but expand to cefepime to cover pseudomonas. Clot may also be contributing to appearence of worsening (2) Parkinson's disease: Status: Chronic Assessment and plan: Not currently on meds Physical therapy (3) BPH w urinary obs/LUTS: Status: Chronic Assessment and plan: Greenberg placed, large amount of urine behind the prostate Start tamsulosin (4) Obesity (BMI 30-39.9): Status: Chronic Assessment and plan: Patient's is not able to safely care for him at home due to her small stature. PT as above. (5) Major depressive disorder: Status: Chronic Assessment and plan: Continue home regimen (6) Acute superficial venous thrombosis of left lower extremity: Status: Acute Assessment and plan: h/o right DVT on apixaban. Not close to deep circulation but quite large (well over 5cm cut off at 11cm) so would benefit from treatment. Concerningly, he developed this on apixaban. He describes good adherence, anti-Xa sent off to confirm adequate dosing. For now, change to enoxaparin while he is here, hold apixaban. Subjective Subjective Patient reports: tolerating a regular diet; denies diarrhea, nausea, vomiting, shortness of breath or fever Interval history since last seen: LE doppler today Concern that redness spreading up right leg and down to feet from the merino despite treatment. tender in area Exam Narrative Exam Narrative: General: This is an obese, alert man in no distress HEENT: MMM, no icterus CV: RRR Resp: CTAB Abd: soft, NTND MSK: 3 cm round recent wound with eschar, no exudate. Distal to wound leg is erythematous and edematous suggestive on left, redness now down to toes and up medial thigh to groin. Neuro: awake, alert, slow speech. BUE tremor. Objective Last Vital Signs Temp 36.7 C 02/06/25 14:59 Pulse 67 12/01/25 14:59 Resp 17 02/06/25 14:59 BP 103/67 02/06/25 14:59 Pulse Ox 95 02/06/25 14:59 Laboratory Results - last 24 hr 02/06/25 06:29 WBC 13.97 H RBC 4.10 L Hgb 13.2 L Hct 37.8 L MCV 92 MCH 32.2 MCHC 34.9 RDW 12.7 Plt Count 156 MPV 10.4 Immature Gran % 0.5 Neutrophils % 86.5 Lymphocytes % 4.7 Monocytes % 7.3 Eosinophils % 0.6 Basophils % 0.4 Nucleated RBC % 0.0 Absolute Neutrophils 12.08 H Absolute Lymphocytes 0.66 L Absolute Monocytes 1.02 H Absolute Eosinophils 0.08 Absolute Basophils 0.06 Sodium 138 Potassium 3.0 L Chloride 103 Carbon Dioxide 26.2 Anion Gap 8.8 BUN 12 Creatinine 0.89 Est GFR (CKD-EPI 2020) 85.86 Glucose 110 H Calcium 8.4 Total Bilirubin 0.60 AST 17 ALT 20 Alkaline Phosphatase 64 Total Protein 5.6 L Albumin 3.3 VTE Prohylaxis Risk Level: Moderate/High Risk Contraindications: None Prophylaxis: Patient anticoagulated Time Spent with Patient Time Spent with Patient: 35-49 minutes Time was spent: preparing to see the patient(eg.review tests), obtaining and/or reviewing separately otained hiistory, ordering medications,tests, procedures, referring, communicating with other health women's health care nurse practitioner, indepentently interpreting results, counseling the patient and care coordination
[2025-02-06] MEDS: Tamsulosin 0.4 MG CAPCR PO (20:14)
[2025-02-06] MEDS: Enoxaparin 120 MG/0.8 ML SYR SC (20:15)
--- NOTE | 2025-02-07 | DI.MRI_ITS ---
Exam(s) MR LOWER EXTREMITY LT WO/W EXAM: MR LOWER EXTREMITY LT WO/W CLINICAL HISTORY: worsening cellulitis, abscess. TECHNIQUE: Multiplanar multisequence MRI of the left leg was performed. CONTRAST MATERIAL: IV Contrast: 20 mL of Dotarem contrast administered. COMPARISON: US US LOWER EXTREMITY VENOUS LT from 02/06/2025 FINDINGS: The examination is limited due to patient motion artifact. BONES/JOINTS: No fracture or contusion pattern. No bone lesions identified. There is normal marrow signal. No marrow edema or enhancement is seen. MUSCULOTENDINOUS STRUCTURES: The muscles show normal signal and size. No muscular fatty atrophy. SOFT TISSUES: There is edema seen in the soft tissues of the lower extremity. There is also diffuse skin thickening present. No focal fluid collection is seen to suggest an abscess. OTHER FINDINGS: None. IMPRESSION: 1. Findings most suggestive of left lower extremity cellulitis. 2. No evidence to suggest an abscess or osteomyelitis is seen at this time. 3. The preliminary [facility] report was reviewed. DATA REPOSITORY:
[2025-02-07 03:45] VITALS: BP 127/74; PULSE 65; RESP 17; TEMP 36; O2SAT 93
[2025-02-07 08:25] VITALS: BP 102/65; PULSE 68; RESP 18; TEMP 36.5; O2SAT 96
--- NOTE | 2025-02-07 08:50 | CMPROGNOTE_ITS ---
Date of service: 02/07/25 Time of Service: 08:51 Care Management Progress Note Progress Note Text Progress Note Text: Ed was sitting in a chair when CM met with him. He is being closely monitored and treated for left leg cellulites with superficial venous thrombosis (despite treatment with apixaban,) as well as a UTI (complicated by BPH with urinary obstructive LUTS.) His Mckenzie is present and is still planning to take Ed home when he is medically cleared for discharge, but is very concerned with his ambulatory dysfunction and would prefer that he remain at the hospital a bit longer to work with PT. She would like to know if he would be able to transfer to [facility] for a short time? CM will review appropriateness and bed availability with the team. PA may also be required. In addition, she feels she could accommodate his needs at the home better if he was set up with a hospital bed, commode and bedside table before he discharges. DME was ordered today, CM will follow status. Discharge Potential Discharge Needs: PT Evaluation and PCP F/U Appt Anticipated Barriers to Discharge: None Identified and Medical Status Patient/Family Education Needs: Review discharge instructions, discuss Ask Me Three Transportation: Private vehicle Plan: Once patient is medically cleared for discharge, he may be eligible for a short SWB1 stay at [facility] for continued PT before returning home. Anticipate, Ed will transition to SWB1 for continued PT (if possible) p rior to discharging home with [facility] RN/PT/OT/ART INSTRUCTOR services. CM will attempt to coordinated needed DME, prior to discharge. CM will follow. Social Determinants of Health Screening Social Determinants of health last assessed in clinic: 02/07/25 Will the Patient Participate in the Screening?: Yes Do you worry about having a steady place to live?: no Problems where you live: no known problems In the past 12 months, have you had to go without electric, gas, oil or water in your home?: no 1. Within the past 12 months, we worried whether our food would run out before we got money to buy more.: Never true 2. Within the past 12 months, the food we bought just didn't last and we didn't have money to get more.: Never true Has lack of transportation kept you from medical appointments or from doing things needed for daily living?: no Has anyone in your life made you feel unsafe or unsupported?: no How hard is it for you to pay for the very basics like food, housing, medical care, and heating? Would you say it is:: Not hard at all Do you want help finding or keeping work or a job?: I do not need or want help If for any reason you need help with day-to-day activities such as bathing, preparing meals, shopping, managing finances, etc., do you get the help you need?: I get all the help I need How often do you feel lonely or isolated from those around you?: Never Do you speak a language other than Danish at home?: No Does the patient want assistance with any of the above?: No
[2025-02-07] MEDS: Doxycycline Hyclate 100 MG CAP PO ×2 (08:58→20:11)
[2025-02-07] MEDS: Tamsulosin 0.4 MG CAPCR PO (08:59)
[2025-02-07] MEDS: Enoxaparin 120 MG/0.8 ML SYR SC ×2 (08:59→20:11)
[2025-02-07] MEDS: Escitalopram 10 MG TAB PO (08:59)
[2025-02-07] MEDS: Docusate Sodium 100 MG CAP PO ×3 (08:59→20:12)
[2025-02-07] MEDS: cefTAZidime 2,000 MG in Normal Saline 100 ML 200 MG IVPB ×3 (09:00→23:44)
[2025-02-07] MEDS: Normal Saline Flush 10 ML SYR IVP ×3 (09:00→20:12)
[2025-02-07 09:06] LABS: Abs Immature Grans 0.12 10^3/uL (0.0-0.06); HCT 38.5 % (40.0-50.0); HGB 13.4 g/dL (13.5-17.5); Immature Grans % 1.1 %; MCH 31.8 pg (27.0-33.0); MCHC 34.8 % (32.0-36.0); MCV 91 fL (80-95); MPV 9.7 fL (8.0-11.0); Platelet Count 193 10^3/uL (130-400); RBC 4.21 10^6/uL (4.36-5.78); RDW 12.9 % (11.8-14.1); RDW-SD 42.9 fL; WBC 10.97 10^3/uL (4.4-10.8)
[2025-02-07] MEDS: Acetaminophen 325 MG TAB 650 MG PO ×2 (11:32→20:11)
--- NOTE | 2025-02-07 12:18 | PT.INTREAT ---
PT Notes Visit Reasons: Cellulitis Inpatient Physical Therapy Treatment Note [facility] Date: 02/07/2025 PRECAUTIONS: Standard, Fall, Parkinson?s, Greenberg catheter, SUBJECTIVE: Pt reported feeling well. Pt reported wanting to go home, OBJECTIVE: General observation: Pt lying in bed feet up watching tv and eating chocolate as PT arrived.?Pt able to keep eyes open. Pt tremor in both hands became present post ambulation ? PAIN: no pain reported. Pt Left Lower Leg, sensitive due to cellulitis VITALS: ? Monitored by Nursing Therapeutic Activities (54308x[]): Direct one-on-one instruction in dynamic activities to improve functional performance. ?? Provided skilled cues and instruction on performance and technique throughout. ? BED MOBILITY/TRANSFERS?Sit-stand:? From the recliner: Mod A of 1 and SBA of 1 to help with transition of hand from armrest to FWW ? From Elevated Wheelchair (post 50 feet): MIN A of 1 and SBA of 1 to help with transition of hand from armrest to FWW From Elevated Wheelchair (post 150feet): Mod A of 1 and SBA of 1 to help with transition of hand from armrest to FWW ? From the recliner (post 200feet): Mod A of 1 and SBA of 1 to help with transition of hand from armrest to FWW Stand-sit: Mod A of 2 ? Pt able to perform step turn x 2 trials from wheelchair with grab bar with CGA and cues for hand placement on and off toilet. ?Ambulation: Pt ambulated total distance of 200 feet with 2 sit rests FWW with Min A of 1 and SBA of 1 following with a wheelchair verbal and tactile cues provided for step height and length upright trunk and FWW management to keep it closer to body. ASSESSMENT:?Pt was able to ambulate 200 feet with FWW and Min A of 1 and SBA of 1 following with a wheelchair. Pt needed 2 rest breaks during ambulation due to weakness in lower extremities and mild SOB. Pt performed well initially requiring min verbal cueing for taking larger steps, standing up tall, and keeping the walker closer to his body. As pt ambulated further he became more tired and this caused a reduction in step height and length, and ability to stand up tall despite moderate verbal cueing. As pt approached the recliner to sit, pt had significant difficulty aligning with the chair and attempted to sit early which would have resulted in pt sitting on the arm rest. PT used verbal & tactile cueing and mod/max A for safe approach. Next session PT will focus on safe approach to surfaces and shorter distances with rest periods to increase pt activity tolerance, & increase pt ability to maintain proper motor control with ambulation. PLAN: 1-2x/day, 7 days/week x 1 week. Plan of care has been reviewed with the MORTUARY OPERATIONS MANAGER providing the service under Physical Therapy direction. Initiate Physical Therapy intervention for pain management as needed, strengthening, bed mobility, transfers, gait, balance training, and use of assistive device TREATMENT CODE/TIME: 65917/9:50-10:31am DISCHARGE RECOMMENDATION: Home with HHPT vs short term SNF if unable to provide level of assistance needed
[2025-02-07 12:41] VITALS: BP 109/64; PULSE 70; RESP 18; TEMP 36.7; O2SAT 95
--- NOTE | 2025-02-07 12:53 | W.PM.PROGNOT ---
Date of Service Date of service: 02/07/25 Time of Service: 12:53 Assessment and Plan Assessment and plan (1) Cellulitis of left leg: Status: Acute Assessment and plan: With recent wound and spreading erythema/edema suggestive of cellulitis With fever, leukocytosis, lactic acidosis c/w severe sepsis, admitted for IV antibiotics and supportive care WBC improved but redness worsening 02/06 despite ceftriaxone, doxycycline, vancomycin. Not exudative, no MRSA risks, will stopped vanco 02/06 but expanded to cefepime to cover pseudomonas. Clot may also be contributing, see below Improving 02/07 (2) Acute superficial venous thrombosis of left lower extremity: Status: Acute Assessment and plan: h/o right DVT on apixaban. Current GSV clot not close to deep circulation but quite large (well over 5cm cut off at 11cm) so would benefit from treatment. Concerningly, he developed this on apixaban. He describes good adherence, anti-Xa sent off to confirm adequate dosing. 02/06 pm changed to enoxaparin, holding apixaban, discuss with hematology once anti-Xa back as unclear if this would be considered a failure of apixaban. (3) BPH w urinary obs/LUTS: Status: Chronic Assessment and plan: Greenberg placed, large amount of urine behind the prostate Started tamsulosin 02/07 He may need to go home with this with outpatient follow up with urology (4) Obesity (BMI 30-39.9): Status: Chronic Assessment and plan: Patient's is not able to safely care for him at home due to her small stature. PT as above, recommended SNF vs HHPT. (5) Parkinson's disease: Status: Chronic Assessment and plan: Not currently on meds Physical therapy (6) Major depressive disorder: Status: Chronic Assessment and plan: Continue home regimen (7) Hypokalemia: Status: Acute Assessment and plan: replace orally 02/06, follow this and mag and continue supplementing as needed, Discharge Planning Discharge Plannin/3- once clearly improving, plan for anticoagulation made Subjective Subjective Patient reports: feels better and tolerating a regular diet; denies nausea, vomiting, shortness of breath or fever Interval history since last seen: He feels a little better today. Still pain in the right leg, but thinks the medicaiton changes helped. Exam Narrative Exam Narrative: General: This is an obese, alert man in no distress HEENT: MMM, no icterus CV: RRR Resp: CTAB Abd: soft, NTND MSK: 3 cm round wound with eschar, no exudate, not tender or fluctuant. Distal to wound leg is erythematous and edematous suggestive on left, redness less notable in feet/toes but still evident up medial thigh to groin with some tenderness. Neuro: awake, alert, slow speech. BUE tremor. Objective Last Vital Signs Temp 36.7 C 02/07/25 12:41 Pulse 70 02/07/25 12:41 Resp 18 02/07/25 12:41 BP 109/64 02/07/25 12:41 Pulse Ox 95 02/07/25 12:41 Laboratory Results - last 24 hr 02/06/25 02/07/25 06:29 09:00 WBC 13.97 H 10.97 H RBC 4.10 L 4.21 L Hgb 13.2 L 13.4 L Hct 37.8 L 38.5 L MCV 92 91 MCH 32.2 31.8 MCHC 34.9 34.8 RDW 12.7 12.9 Plt Count 156 193 MPV 10.4 9.7 Immature Gran % 0.5 1.1 Neutrophils % 86.5 80.4 Lymphocytes % 4.7 7.6 Monocytes % 7.3 10.0 Eosinophils % 0.6 0.5 Basophils % 0.4 0.4 Nucleated RBC % 0.0 0.0 Absolute Neutrophils 12.08 H 8.82 H Absolute Lymphocytes 0.66 L 0.83 L Absolute Monocytes 1.02 H 1.10 H Absolute Eosinophils 0.08 0.05 Absolute Basophils 0.06 0.04 Sodium 138 Potassium 3.0 L Chloride 103 Carbon Dioxide 26.2 Anion Gap 8.8 BUN 12 Creatinine 0.89 Est GFR (CKD-EPI 2020) 85.86 Glucose 110 H Calcium 8.4 Total Bilirubin 0.60 AST 17 ALT 20 Alkaline Phosphatase 64 Total Protein 5.6 L Albumin 3.3 VTE Prohylaxis Risk Level: Moderate/High Risk Contraindications: None Prophylaxis: Patient anticoagulated Time Spent with Patient Time Spent with Patient: 35-49 minutes Time was spent: preparing to see the patient(eg.review tests), obtaining and/or reviewing separately otained hiistory, ordering medications,tests, procedures, referring, communicating with other health wild animal caretaker, indepentently interpreting results, counseling the patient and care coordination
[2025-02-07 13:13] LABS: Magnesium 1.7 mg/dL (1.6-2.6)
[2025-02-07 13:15] LABS: Anion Gap 8.3 mmol/L (3-11); BUN 10 mg/dL (9-23); CO2 24.7 mmol/L (20.0-31.0); Calcium 8.2 mg/dL (8.3-10.6); Chloride 107 mmol/L (98-107); Glucose 142 mg/dL (74-106); Potassium 4.0 mmol/L (3.5-5.1); Sodium 140 mmol/L (136-145)
[2025-02-07] MEDS: Omeprazole 20 MG CAPCR PO (13:34)
[2025-02-07] MEDS: Polyethylene Glycol 3350 17 GM PACKET PO (13:34)
--- NOTE | 2025-02-07 14:08 | OT.INTREAT ---
Occupational Therapy Notes Occupational Therapy Inpatient Treatment Note Date: 02/07/25 PRECAUTIONS: Fall, Standard, DNR/DNI SUBJECTIVE: Pt was sitting in chair when OT arrived. His and sister were present in the room during OT session. OBJECTIVE: PAIN:c/o pain in the (L) LE BATHING: max (A) set up/clean up- seated in chair Upper Body: (I) face, mod (A) (B) UE with mod vc Lower Body: hold for today, LE is very tender. VICE PRESIDENT OF BUSINESS DEVELOPMENT notes that this was performed prior TOILETING: Device: Greenberg Catheter in place EATING: seated in chair (I) hand to mouth and no issues swallowing pills or water with nursing. ASSESSMENT/PLAN: Pt is still in a lot of pain in the LE which does limit him functionally. He is fatigued and able to participate but with mod vc throughout. TREATMENT CODES/TIME: [id number], 30 minutes Deborah Wei, OTR/L [facility] [place], [place]
[2025-02-07 15:31] VITALS: BP 117/66; PULSE 61; RESP 19; TEMP 36.4; O2SAT 94
--- NOTE | 2025-02-07 15:44 | W.SURGCON ---
Date of service: 02/07/25 Time of Service: 15:44 Assessment and Plan Assessment and plan (1) Cellulitis of left leg: Status: Acute Assessment and plan: Patient is a 64-year-old male with multiple medical comorbidities admitted to the hospitalist service given fevers, altered mental status, and left lower extremity pain. He was admitted and initiated on antibiotics given concern for cellulitis of the left lower extremity. Since admission he has had improvement in his leukocytosis and was continued on antibiotics. General surgery was consulted to evaluate the left lower extremity for possible debridement. On exam today he is hemodynamically stable and afebrile. His left lower extremity is edematous with erythema to the mid calf. There is also a circular scab-like lesion just distal to the knee. There is no surrounding erythema of this wound. Given the overall findings on exam today there is no acute indication for debridement. I would not recommend unroofing the scab just distal to the knee as this may create a larger wound that has difficulty healing at this time. An MRI is currently ordered and we will review once these results are available. In the interim agree with ongoing antibiotics per hospitalist and anticoagulation given DVT of the left lower extremity. Would recommend Mepilex dressing to the wound below the left knee and compression as tolerated of the left lower extremity with an Doroteo wrap so intermittent evaluation can be performed. (2) Chronic anticoagulation: Status: Chronic (3) Frequent falls: Status: Chronic History of Present Illness Narrative: Patient is a 64-year-old male admitted to the hospitalist service with fevers and cellulitis of the left lower extremity. He notes that prior to presentation to the hospital a couple days ago he was having ongoing fevers and pain in the left leg. He notes that he has had multiple falls. He states that mostly he ends up landing on his left knee which is why he has a chronic wound there. He denies any history of surgical procedure to his left knee. He does state that he has a history of DVTs and usually has swelling of the left lower extremity which is worse than the right. Review of Systems Constitutional Constitutional: Denies fever(s) Cardiovascular Cardiovascular: Denies chest pain Gastrointestinal Gastrointestinal: Denies abdominal pain, Denies nausea and Denies vomiting PFSH All Active Problems (Updated 02/07/25 @ 13:05 by John Osborn) Hypokalemia (Acute) Acute superficial venous thrombosis of left lower extremity (Acute) Hyperbilirubinemia (Acute) Cellulitis of left leg (Acute) Urgency incontinence (Acute) Obesity (BMI 30-39.9) (Chronic) BPH w urinary obs/LUTS (Chronic) Chronic anticoagulation (Chronic) Eliquis for hx of unprovoked RLE DVT Memory loss (Chronic) Right rotator cuff tear (Chronic ~11/2021) Dysphagia (Chronic) Frequent falls (Chronic) Constipation (Chronic) Prediabetes (Chronic) Major depressive disorder (Chronic) ECT at [facility] 1997 Sensorineural hearing loss, bilateral (Chronic) Parkinson's disease (Chronic) Bilateral pallidotomy Obstructive sleep apnea syndrome (Chronic) Unable to tolerate CPAP Non-alcoholic fatty liver disease (Chronic) Insomnia (Chronic) Hyperlipidemia (Chronic) Gastroesophageal reflux disease (Chronic) Lumbosacral spondylosis without myelopathy (Chronic) Medical History Risk for falls Deep vein thrombosis (DVT) of right lower extremity (~02/2021) Essential hypertension Surgical History Status post reverse arthroplasty of left shoulder (08/02/20) And left shoulder arthroscopic biopsy 08/29/21 for continued pain History of revision of total replacement of left hip joint (07/21/19) S/P vasectomy S/P tonsillectomy 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 Sister No problems noted. Son Heart disease Son No problems noted. Son Depression Daughter No problems noted. Daughter No problems noted. Paternal Grandfather Heart disease Paternal Grandmother No problems noted. Maternal Grandfather No problems noted. Maternal Grandmother Depression Social History Smoking/Tobacco Use Status: Former Tobacco Use tobacco type: cigarettes Quit Date: 03/09/06 Pack-years: 25 Tobacco: How many years used: 20 Quit status: has quit before Smoking risk assessment performed?: Yes Alcohol Intake: current Alcohol Intake frequency: holidays/special occasions only Drug use: Occasionally Substance use type: marijuana Adopted: No Caregiver/Support person: No Foster care: No Household members: spouse Housing: house Number of Children: 3 number of grandchildren: 6 Communication Needs: Hard of Hearing and Corrective Lenses Education Level: high school Do you need help understanding health information?: Rarely Pets and animals: Yes Pets and animals: dog(s) Sexually active: No Do you think of yourself as: straight/heterosexual What is your relationship status?: How often do you talk on the phone with friends or family?: twice per week How often do you get together with friends or relatives?: once per week How often do you attend druze or druze services?: decline to answer Do you belong to any clubs or organized social groups?: no Panel score (0-1 are the most socially isolated patients): 2 Tati/Oriental Orthodox: No preference Special tati needs: No Seatbelt use: always Helmet use: No Drive intox or ride w/intox front end driver: No Do you feel safe at home: Yes Do you feel safe in your relationship?: Yes Additional Social history: [facility] Exam Narrative Exam Narrative: General: no acute distress. Skin: Good turgor HEENT: Normocephalic, atraumatic CV: Regular rate Lungs: Bilateral equal chest rise, non-labored breathing Extremities: Warm; significant edema of LLE with erythema to level of mid-calf, 3cm circular scab wound below left knee without surrounding erythema, no additional wounds or drainage Psychiatric: Alert, normal mood and affect Results Last Vital Signs Temp 36.4 C L 02/07/25 15:31 Pulse 61 02/07/25 15:31 Resp 19 02/07/25 15:31 BP 117/66 02/07/25 15:31 Pulse Ox 94 02/07/25 15:31 Labs 02/07/25 09:00 02/07/25 09:00 Labs: Laboratory Results - last 24 hr 02/06/25 02/07/25 06:29 09:00 WBC 13.97 H 10.97 H RBC 4.10 L 4.21 L Hgb 13.2 L 13.4 L Hct 37.8 L 38.5 L MCV 92 91 MCH 32.2 31.8 MCHC 34.9 34.8 RDW 12.7 12.9 Plt Count 156 193 MPV 10.4 9.7 Immature Gran % 0.5 1.1 Neutrophils % 86.5 80.4 Lymphocytes % 4.7 7.6 Monocytes % 7.3 10.0 Eosinophils % 0.6 0.5 Basophils % 0.4 0.4 Nucleated RBC % 0.0 0.0 Absolute Neutrophils 12.08 H 8.82 H Absolute Lymphocytes 0.66 L 0.83 L Absolute Monocytes 1.02 H 1.10 H Absolute Eosinophils 0.08 0.05 Absolute Basophils 0.06 0.04 Sodium 138 140 Potassium 3.0 L 4.0 D Chloride 103 107 Carbon Dioxide 26.2 24.7 Anion Gap 8.8 8.3 BUN 12 10 Creatinine 0.89 0.79 Est GFR (CKD-EPI 2020) 85.86 98.52 Glucose 110 H 142 H Calcium 8.4 8.2 L Magnesium 1.7 Total Bilirubin 0.60 AST 17 ALT 20 Alkaline Phosphatase 64 Total Protein 5.6 L Albumin 3.3
[2025-02-07] MEDS: Gadoterate meglumine 20 ML SYRINGE IJ (16:39)
--- NOTE | 2025-02-07 18:36 | DI.VRAD_ITS ---
PROCEDURE INFORMATION: Exam: MR Left Lower Extremity Without and With Contrast, Tibia Fibula Exam date and time: 02/07/2025 4:16 PM Age: 64 years old Clinical indication: Cellulitis and swelling, leg or foot; Lower leg; Left; Worsening cellulitis, abscess TECHNIQUE: Imaging protocol: Magnetic resonance imaging of the left lower extremity without and with contrast. Exam focused on the tibia and fibula. Total images: 550 Contrast material: DOTAREM; Contrast volume: 20 ml; Contrast route: INTRAVENOUS (IV); COMPARISON: No relevant prior studies available. FINDINGS: Bones/joints: No bone marrow edema, abnormal enhancement or periostitis. Soft tissues: Diffuse subcutaneous edema and skin thickening. No intramuscular collection. No encapsulated subcutaneous collection. IMPRESSION: Cellulitis without abscess or osteomyelitis. Dictated and Authenticated by: Fabian Benton MD. Orderin Anurag Lopez MD
[2025-02-07 19:52] VITALS: BP 115/66; PULSE 59; RESP 19; TEMP 36.4; O2SAT 95
[2025-02-08 03:34] VITALS: BP 120/61; PULSE 60; RESP 18; TEMP 35.5; O2SAT 94
[2025-02-08 07:26] VITALS: BP 127/76; PULSE 59; RESP 30; TEMP 36.2; O2SAT 93
[2025-02-08 07:29] LABS: Abs Immature Grans 0.16 10^3/uL (0.0-0.06); HCT 38.0 % (40.0-50.0); HGB 12.9 g/dL (13.5-17.5); Immature Grans % 1.7 %; MCH 31.5 pg (27.0-33.0); MCHC 33.9 % (32.0-36.0); MCV 93 fL (80-95); MPV 9.8 fL (8.0-11.0); Platelet Count 208 10^3/uL (130-400); RBC 4.10 10^6/uL (4.36-5.78); RDW 12.8 % (11.8-14.1); RDW-SD 43.7 fL; WBC 9.15 10^3/uL (4.4-10.8)
[2025-02-08 07:54] LABS: ALT 23 U/L (10-49); AST 20 U/L (<34); Albumin 3.4 g/dL (3.2-5.0); Alkaline Phosphatase 63 U/L (46-116); Anion Gap 7.3 mmol/L (3-11); BUN 8 mg/dL (9-23); Bilirubin, Total 0.50 mg/dL (0.2-1.2); CO2 27.7 mmol/L (20.0-31.0); Calcium 8.5 mg/dL (8.3-10.6); Chloride 105 mmol/L (98-107); Glucose 108 mg/dL (74-106); Potassium 3.4 mmol/L (3.5-5.1); Sodium 140 mmol/L (136-145); Total Protein 5.9 g/dL (5.7-8.2)
[2025-02-08 07:55] LABS: C-Reactive Protein 8.86 mg/dL (<=0.50)
--- NOTE | 2025-02-08 08:50 | PDOC.CMPRO ---
Date of service: 02/08/25 Time of Service: 08:50 Care Management Progress Note Progress Note Text Progress Note Text: Ed's mobility is improving and PT recommends home with New [facility] services once medically cleared for discharge (which will likely be tomorrow her provider.) CM notified Mckenzie, whom reports that his hospital bed is supposed to be delivered today, although its 5pm and hasnt arrived yet. Mckenzie is planning on providing his transportation. CM will follow. Discharge Potential Discharge Needs: PCP F/U Appt Anticipated Barriers to Discharge: None Identified Patient/Family Education Needs: Review discharge instructions, discuss Ask Me Three Transportation: Private vehicle Plan: Anticipate, Ed will discharge home with New [facility] RN/PT/OT/MANUFACTURING ENGINEERING INTERN services. will provide transportation, patient will follow up with community providers and continue per his discharge plan of care. Hospital bed was ordered, is waiting on delivery. Social Determinants of Health Screening Social Determinants of health last assessed in clinic: 02/08/25 Will the Patient Participate in the Screening?: Yes Do you worry about having a steady place to live?: no Problems where you live: no known problems In the past 12 months, have you had to go without electric, gas, oil or water in your home?: no 1. Within the past 12 months, we worried whether our food would run out before we got money to buy more.: Never true 2. Within the past 12 months, the food we bought just didn't last and we didn't have money to get more.: Never true Has lack of transportation kept you from medical appointments or from doing things needed for daily living?: no Has anyone in your life made you feel unsafe or unsupported?: no How hard is it for you to pay for the very basics like food, housing, medical care, and heating? Would you say it is:: Not hard at all Do you want help finding or keeping work or a job?: I do not need or want help If for any reason you need help with day-to-day activities such as bathing, preparing meals, shopping, managing finances, etc., do you get the help you need?: I get all the help I need How often do you feel lonely or isolated from those around you?: Never Do you speak a language other than [place] at home?: No Does the patient want assistance with any of the above?: No
[2025-02-08] MEDS: cefTAZidime 2,000 MG in Normal Saline 100 ML 200 MG IVPB ×2 (09:16→16:14)
[2025-02-08] MEDS: Enoxaparin 120 MG/0.8 ML SYR SC ×2 (09:17→20:06)
[2025-02-08] MEDS: Tamsulosin 0.4 MG CAPCR PO (09:17)
[2025-02-08] MEDS: Doxycycline Hyclate 100 MG CAP PO ×2 (09:17→20:06)
[2025-02-08] MEDS: Escitalopram 10 MG TAB PO (09:17)
[2025-02-08] MEDS: Docusate Sodium 100 MG CAP PO ×3 (09:17→20:06)
[2025-02-08] MEDS: Omeprazole 20 MG CAPCR PO (09:17)
[2025-02-08] MEDS: Normal Saline Flush 10 ML SYR IVP ×3 (09:18→20:07)
[2025-02-08 11:33] VITALS: BP 166/66; PULSE 65; RESP 17; TEMP 36; O2SAT 94
--- NOTE | 2025-02-08 11:34 | PTTR_ITS ---
PT Notes Visit Reasons: Cellulitis Inpatient Physical Therapy Treatment Note [facility] Date: 02/08/2025 PRECAUTIONS: Standard, Fall, Parkinson?s, Greenberg catheter, SUBJECTIVE: Pt reported feeling well and hungry this morning. Pt reported wanting to go home, OBJECTIVE: General observation: Pt lying in bed when PT arrived. Pt was stiff this morning and needed help getting out of bed Noted windswept LEs to the right PAIN: pain reported in LLE specifically ankle and foot, unable to provide number. VITALS: ? Monitored by Nursing AM session: Therapeutic Activities ([id number][]): Direct one-on-one instruction in dynamic activities to improve functional performance. ? BED MOBILITY/TRANSFERS?Supine to sit EOB: Min A of 1 for B LE, Max A of 1 for abdominal Sit-stand:? From the bed: Mod A of 1 and SBA of 1 to help with transition of hand from armrest to FWW ? From the recliner: Max A of 1 and SBA of 1 to help with transition of hand from armrest to FWW ? From Elevated Wheelchair (post 65feet): Mod A of 1 and SBA of 1 to help with transition of hand from armrest to FWW From Elevated Wheelchair (post 90 feet): Max A of 1 and SBA of 1 to help with transition of hand from armrest to FWW From Elevated Wheelchair (post stairs): Max A of 1 and SBA of 1 to help with transition of hand from armrest to FWW From Elevated Wheelchair (post lateral walks): Max A of 1 and SBA of 1 to help with transition of hand from armrest to FWW Stand-sit: Mod A of 2 ?Ambulation: Pt ambulated 130 total feet FWW with Min A of 1 and SBA of 1 following with a wheelchair Stairs: pt ambulated 3 4inch steps with railings on both sides, Min A of 2. Lateral stepping while holding onto rail. Pt was able to take five steps to the left while holding onto a rain in front Min A of 1. ? Provided skilled cues and instruction on performance and technique throughout. PM session: [facility] ([id number][]): Direct one-on-one instruction in dynamic activities to improve functional performance. ?? LLE Hip external rotation (Hold Relax): 1 sets [id number] LLE Hip Abduction (Hold Relax): 1 sets [id number] LLE Knee flexion (Hold Relax):1 sets [id number] ASSESSMENT:?Pt was able to ambulate a total of 130 feet with 1 rest period w/FWW and Min A of 1 with SBA following with a wheelchair . Pt was also able to complete one set of 3 4inch steps. Pt reported feeling tired after the morning session. Pt still continues to need moderate verbal and tactile cueing during ambulation to assist with foot placement, and FWW placement.Trialed use of theraband( attached to walker and gaitbelt) for tactile cue to keep FWW closer to his body Pt continues to have shorten steps at the start of ambulation, and when tired. This causes pt to continue to drift to the right while keeping the FWW in the same line. This causes the pt to have improper body mechanics for safety and function. With verbal cueing pt is able to correct this, but isn?t able to maintain this proper body mechanics. In the afternoon session Pt was unwilling to get out of bed as he was tired. PT decided to perform Neuro reeducation with the pt. Pt performed Left hip external rotation adduction and knee flexion. This was to increase ROM and help facilitate proper motor control. Thus when walking pt will be able to keep his feet wider apart leading to larger steps, and limit pt from shuffling his feet. ?PLAN: 1-2x/day, 7 days/week x 1 week. Plan of care has been reviewed with the PEER SUPPORT SPECIALIST providing the service under Physical Therapy direction. Initiate Physical Therapy intervention for pain management as needed, strengthening, bed mobility, transfers, gait, balance training, and use of assistive device TREATMENT CODE/TIME: Am [id number]/8:10am-8:20am,9:50-10:47am Pm session: [id number]/2:05pm-2:30pm DISCHARGE RECOMMENDATION: SNF vs HHPT Written by: Mendel Baeza DPTS Supervised by: Mala Waldron, PT
[2025-02-08] MEDS: Potassium Chloride 20 MEQ TABCR 40 MEQ PO ×2 (12:18→20:08)
[2025-02-08] MEDS: Acetaminophen 325 MG TAB 650 MG PO (12:18)
[2025-02-08] MEDS: Polyethylene Glycol 3350 17 GM PACKET PO (12:18)
--- NOTE | 2025-02-08 13:51 | OTTR_ITS ---
Occupational Therapy Notes Occupational Therapy Inpatient Treatment Note Date: 02/08/25 PRECAUTIONS: Fall, Standard, DNR/DNI SUBJECTIVE: Pt was sitting in bed when OT arrived. He is agreeable to OT consult. OBJECTIVE: PAIN:c/o pain in the (L) LE BATHING: max (A) set up/clean up- seated in bed Upper Body: (I) face, min (A) (B) UE with mod vc Lower Body: max (A) , LE is very tender. TOILETING: Device: Greenberg Catheter in place DRESSING- Mod (A) [facility] gown with vc for lifting (B) UE ASSESSMENT/PLAN: Pt is still in a lot of pain in the LE which does limit him functionally. He is improving with increased functional (I) with his ADLs. Still requires vc for task initiation and executive planning. He is notably fatigued but interested in performance of his ADLs. TREATMENT CODES/TIME: [id number], 25 minutes Deborah Wei, OTR/L [facility] [place], [place]
[2025-02-08 15:32] VITALS: BP 105/57; PULSE 60; RESP 18; TEMP 36.5; O2SAT 95
--- NOTE | 2025-02-08 15:39 | CHAPLAIN ---
Nickolas was resting in the recliner when I visited. He's had a company regularly while he's been here and his Mckenzie was arriving as I left. Nickolas was pleasant and engaged in a short conversation. I explained my role and offered support.
--- NOTE | 2025-02-08 15:49 | PGE_ITS ---
Date of Service Date of service: 02/08/25 Time of Service: 15:49 Assessment and Plan Assessment and plan (1) Cellulitis of left leg: Status: Acute Assessment and plan: With recent wound and spreading erythema/edema suggestive of cellulitis With fever, leukocytosis, lactic acidosis c/w severe sepsis, admitted for IV antibiotics and supportive care WBC improved but redness worsening 02/06 despite ceftriaxone, doxycycline, vancomycin. Not exudative, no MRSA risks, will stopped vanco 02/06 but expanded to ceftazadime to cover pseudomonas. Clot may also be contributing, see below Concern with deepening redness 02/07, but MRI and surgical assessment reassuring. Skin changes may be simply from scratching, local stasis dermatitis, try some mild steroid and antihistamine cream. Could also be inflammatory, but focality suggests infeciton. (2) Acute superficial venous thrombosis of left lower extremity: Status: Acute Assessment and plan: h/o right DVT on apixaban. Current GSV clot not close to deep circulation but quite large (well over 5cm cut off at 11cm) so would benefit from treatment. Concerningly, he developed this on apixaban. He describes good adherence, anti-Xa sent off to confirm adequate dosing. 02/06 pm changed to enoxaparin, holding apixaban, discuss with hematology once anti-Xa back as unclear if this would be considered a failure of apixaban. 120mg dose as recent standing weight around 120kg. 02/08 d/w hematology fellow at . Agreed that this is higher risk given size of clot that that it is not within the cellulitis, but well proximal. Continue with enoxaparin for now, discharge at 100mg BID and follow up with coagulation specialty clinic upon discharge. (3) BPH w urinary obs/LUTS: Status: Chronic Assessment and plan: Greenberg placed, large amount of urine behind the prostate Started tamsulosin 02/07 He will need to go home with this with outpatient follow up with urology (4) Obesity (BMI 30-39.9): Status: Chronic Assessment and plan: Patient's is not able to safely care for him at home due to her small stature. PT as above, SNF vs HHPT but he prefers home health. (5) Parkinson's disease: Status: Chronic Assessment and plan: Not currently on meds Physical therapy (6) Major depressive disorder: Status: Chronic Assessment and plan: Continue home regimen (7) Hypokalemia: Status: Acute Assessment and plan: replacing orally daily, will start scheduled dose. follow Subjective Subjective Patient reports: no new complaints, feels better and tolerating a regular diet; denies diarrhea, nausea, vomiting, shortness of breath or fever Interval history since last seen: Events: MRI done, no abcess or osteo or signs of deep infection Surgical consult, no need for debridement of wound He feels a little better. Would like to go home from here rather than rehab. His leg is still itchy. Not much pain. No bleeding. Exam Narrative Exam Narrative: General: no acute distress. Skin: Good turgor HEENT: Normocephalic, atraumatic CV: Regular rate Lungs: Bilateral equal chest rise, non-labored breathing Extremities: Warm; significant edema of LLE with erythema to level of mid-calf, 3cm circular scab wound below left knee (proximal to area of redness) without surrounding erythema, no additional wounds or drainage Psychiatric: Alert, normal mood and affect Objective Last Vital Signs Temp 36.5 C 02/08/25 15:32 Pulse 60 02/08/25 15:32 Resp 18 02/08/25 15:32 BP 105/57 L 02/08/25 15:32 Pulse Ox 95 02/08/25 15:32 Laboratory Results - last 24 hr 02/08/25 06:49 WBC 9.15 RBC 4.10 L Hgb 12.9 L Hct 38.0 L MCV 93 MCH 31.5 MCHC 33.9 RDW 12.8 Plt Count 208 MPV 9.8 Immature Gran % 1.7 Neutrophils % 73.9 Lymphocytes % 11.1 Monocytes % 11.8 Eosinophils % 1.0 Basophils % 0.5 Nucleated RBC % 0.0 Absolute Neutrophils 6.75 H Absolute Lymphocytes 1.02 L Absolute Monocytes 1.08 H Absolute Eosinophils 0.09 Absolute Basophils 0.05 Sodium 140 Potassium 3.4 L Chloride 105 Carbon Dioxide 27.7 Anion Gap 7.3 BUN 8 L Creatinine 0.79 Est GFR (CKD-EPI 2020) 98.52 Glucose 108 H Calcium 8.5 Total Bilirubin 0.50 AST 20 ALT 23 Alkaline Phosphatase 63 C-Reactive Protein 8.86 H Total Protein 5.9 Albumin 3.4 VTE Prohylaxis Risk Level: Moderate/High Risk Contraindications: None Prophylaxis: Patient anticoagulated Time Spent with Patient Time Spent with Patient: >50 minutes Time was spent: preparing to see the patient(eg.review tests), obtaining and/or reviewing separately otained hiistory, ordering medications,tests, procedures, referring, communicating with other health ocular care technician, indepentently interpreting results, counseling the patient and care coordination
[2025-02-08] MEDS: Triamcinolone 0.1% CR 15 GM TUBE TP ×2 (16:14→20:05)
[2025-02-08 19:32] VITALS: BP 125/65; PULSE 62; RESP 17; TEMP 35.7; O2SAT 97
[2025-02-08 23:25] VITALS: BP 121/67; PULSE 70; RESP 19; TEMP 36.9; O2SAT 95
[2025-02-09] VITALS (8 sets, daily range): BP systolic 113–146; BP diastolic 60–89; PULSE 60–90; RESP 16–18; TEMP 36.3–36.9; O2SAT 92–99
[2025-02-09] MEDS: Normal Saline Flush 10 ML SYR IVP ×3 (00:26→19:45)
[2025-02-09] MEDS: cefTAZidime 2,000 MG in Normal Saline 100 ML 200 MG IVPB ×2 (00:26→08:22)
[2025-02-09] MEDS: Omeprazole 20 MG CAPCR PO (06:12)
[2025-02-09 07:10] LABS: Anion Gap 7.8 mmol/L (3-11); BUN 7 mg/dL (9-23); CO2 27.2 mmol/L (20.0-31.0); Calcium 8.7 mg/dL (8.3-10.6); Chloride 106 mmol/L (98-107); Glucose 101 mg/dL (74-106); Potassium 3.8 mmol/L (3.5-5.1); Sodium 141 mmol/L (136-145)
[2025-02-09] MEDS: Escitalopram 10 MG TAB PO (08:20)
[2025-02-09] MEDS: Docusate Sodium 100 MG CAP PO ×3 (08:20→19:45)
[2025-02-09] MEDS: Tamsulosin 0.4 MG CAPCR PO (08:20)
[2025-02-09] MEDS: Doxycycline Hyclate 100 MG CAP PO (08:20)
[2025-02-09] MEDS: Enoxaparin 120 MG/0.8 ML SYR SC ×2 (08:21→19:45)
[2025-02-09] MEDS: Potassium Chloride 20 MEQ TABCR PO (08:21)
[2025-02-09] MEDS: Triamcinolone 0.1% CR 15 GM TUBE TP ×3 (08:24→19:47)
--- NOTE | 2025-02-09 08:25 | PT.INTREAT ---
PT Notes Visit Reasons: Cellulitis Inpatient Physical Therapy Treatment Note [facility] Date: 02/09/2025 PRECAUTIONS: Standard, Fall, Parkinson?s, Greenberg catheter, SUBJECTIVE: Pt reported feeling well his left foot and calf hurt this morning. When PT asked if he was ready to do some walking prior to breakfast pt reported needing to use the bathroom. Second session pt reported feeling nauseas and dizzy after sit to stand. voiced concern regarding his current difficulty with mobility taking him home today OBJECTIVE: General observation: Pt sitting in recliner, OUTSIDE PROPERTY AGENT?s had just got him out of bed and moved him to the recliner. Once at the toilet pt was able to perform a BM present for 2nd session PAIN: pain reported in LLE specifically ankle and foot, unable to provide number. VITALS: ? Monitored by Nursing AM session: Therapeutic Activities ([id number][]): Direct one-on-one instruction in dynamic activities to improve functional performance. ? BED MOBILITY/TRANSFERS? Sit-stand:? From the bed: FWW Mod A of 1 and SBA of 1 to help with transition of hand from armrest to FWW ? From Toilet: FWW Mod A of 1 and SBA of 1 to help with transition of hand from armrest to FWW Stand-sit: Mod A of 2 ?Ambulation: Pt ambulated 20 total feet FWW with Min A of 1 and SBA of 1. Pt needed verbal and tactile cueing for directions, taking larger steps, body posture, and body alignment with bed. ? Provided skilled cues and instruction on performance and technique throughout. PM session: Therapeutic Activities ([id number][]): Direct one-on-one instruction in dynamic activities to improve functional performance. ?? Sit-stand:? From the elevated chair: FWW Min A of 1 and SBA of 1 to help with transition of hand from armrest to FWW Ambulation: FWW Min A of 1 SBA of 1. Pt needed verbal and tactile cueing for directions, taking larger steps, body posture, and body alignment with bed. ASSESSMENT:?Pt performed well in the first session. Pt was able to stand FWW Mod A of 1 and able to ambulate 20 feet to the toilet and back to the recliner. Pt was able to have a BM, as he has stated in the past sessions, he has had difficulty with having a BM. Despite pt functioning well in the first session. In the second session Pt looked pale and once standing pt reported feeling dizzy. Pt was able to ambulate after some rest, but he was still dizzy and then felt nauseas. Vitals taken 127/73 Pt was moved to the recliner and nursing was made aware how the pt was feeling. Pt is in the recliner for lunch and to rest. Originially PT wanted pt to perform 6inch steps to simulate his home environment. However, pt was tired and not feeling well. PT had the pt ambulate from recliner to bed. Pt showed improvement from the morning sessions as he was able to sit to stand Min A of 1. Next session PT will have pt perform 6inch steps to simulate home environment. Pt's expressed concern regarding pt being discharged today at this current level of function. His functional ability and presentation in session was provided to . was in to assess pt after session. ?PLAN: 1-2x/day, 7 days/week x 1 week. Plan of care has been reviewed with the STITCH MARKER providing the service under Physical Therapy direction. Initiate Physical Therapy intervention for pain management as needed, strengthening, bed mobility, transfers, gait, balance training, and use of assistive device TREATMENT CODE/TIME: Am sessions [id number]/7:38am-8:06am, 11:50am-12:15am Pm session: [id number]/1:55pm-2:10pm DISCHARGE RECOMMENDATION: SNF vs HHPT Written by: Mendel WILBURN Supervised by Mala Waldron PT:
--- NOTE | 2025-02-09 08:31 | PDOC.CMDIS ---
Date of service: 02/09/25 Time of Service: 08:31 LACE Index Scoring Tool Questions: Length of Stay (in days): 4 - 6 Was the patient admitted via the E.D.?: Yes E.D. Visits: 2 Answers: Total Score: 9 Risk of Readmission: Low Risk Care Management Discharge Plan Reason for Hospitalization: Cellulites Discharge Plan: Ed is being discharged home with [facility] RN/PT/OT/DIRECTOR OF EMPLOYEE DEVELOPMENT services. He is being transported by his , and DME was coordinated by [facility] prior to discharge. Ed will follow up with community providers and continue per his discharge plan of care. Patient/Family Education Needs: Review discharge instructions and plan for outpatient follow up. Discuss ask me three. Services Needed at Discharge: Home Health Care Services ([facility] Services. )
--- NOTE | 2025-02-09 13:38 | W.PM.PROGNOT ---
Date of Service Date of service: 03/15/25 Time of Service: 13:38 Assessment and Plan Assessment and plan (1) Cellulitis of left leg: Status: Acute Assessment and plan: With recent wound from recurrent falls and spreading erythema/edema suggestive of cellulitis With fever, leukocytosis, lactic acidosis c/w severe sepsis, admitted for IV antibiotics and supportive care WBC improved but redness worsening 02/06 despite ceftriaxone, doxycycline, vancomycin. Not exudative, no MRSA risks, will stopped vanco 02/06 but expanded to ceftazadime to cover pseudomonas. Clot may also be contributing, see below Concern with deepening redness 02/07, but MRI and surgical assessment reassuring. Skin changes may be simply from scratching, local stasis dermatitis, try some mild steroid and antihistamine cream. Could also be inflammatory, but focality suggests infeciton. Clinically improving 02/09, transition to oral therapy. Given his course I would like to cover pseudomonas, which would mean levofloxacin orally. Will transition now and monitor to make sure not getting worse, 750mg dose with complicated infection, another week of therapy. (2) Acute superficial venous thrombosis of left lower extremity: Status: Acute Assessment and plan: h/o right DVT on apixaban. Current GSV clot not close to deep circulation but quite large (well over 5cm cut off at 11cm) so would benefit from treatment. Concerningly, he developed this on apixaban. He describes good adherence, anti-Xa sent off to confirm adequate dosing. 02/06 pm changed to enoxaparin, holding apixaban, discuss with hematology once anti-Xa back as unclear if this would be considered a failure of apixaban. 120mg dose as recent standing weight around 120kg. 02/08 d/w hematology fellow at . Agreed that this is higher risk given size of clot that that it is not within the cellulitis, but well proximal. Continue with enoxaparin for now, discharge at 100mg BID and follow up with coagulation specialty clinic upon discharge. (3) BPH w urinary obs/LUTS: Status: Chronic Assessment and plan: Greenberg placed, large amount of urine behind the prostate Started tamsulosin 02/07 He will need to go home with this when he is ready with outpatient follow up with urology (4) Obesity (BMI 30-39.9): Status: Chronic Assessment and plan: Patient's is not able to safely care for him at home due to her small stature. PT as above, SNF vs HHPT but he prefers home health, but with setback with PT today, may reconsider. (5) Parkinson's disease: Status: Chronic Assessment and plan: Not currently on meds Physical therapy I am concerned he could be getting autonomic instability contributing to falls. Get orthostatics. (6) Major depressive disorder: Status: Chronic Assessment and plan: Continue home regimen (7) Hypokalemia: Status: Acute Assessment and plan: replacing orally daily, will started 20mEq scheduled dose. Better 02/09. Subjective Subjective Patient reports: tolerating a regular diet; denies diarrhea, nausea, vomiting, shortness of breath or fever Interval history since last seen: Events: Case reviewed with hematology, continue enoxaparin Started using creams on LLE and wrap. feeling a little better, redness in upper thigh better. Got dizzy with PT today and was able to walk less distance. Objective Last Vital Signs Temp 36.9 C 02/09/25 11:51 Pulse 60 02/09/25 11:51 Resp 18 02/09/25 11:51 BP 135/81 02/09/25 11:51 Pulse Ox 99 02/09/25 11:51 Laboratory Results - last 24 hr 02/09/25 05:15 Sodium 141 Potassium 3.8 Chloride 106 Carbon Dioxide 27.2 Anion Gap 7.8 BUN 7 L Creatinine 0.80 Est GFR (CKD-EPI 2020) 97.10 Glucose 101 Calcium 8.7 VTE Prohylaxis Risk Level: Moderate/High Risk Contraindications: None Prophylaxis: Patient anticoagulated Time Spent with Patient Time Spent with Patient: 35-49 minutes Time was spent: preparing to see the patient(eg.review tests), obtaining and/or reviewing separately otained hiistory, ordering medications,tests, procedures, referring, communicating with other health rehab care assistant, indepentently interpreting results, counseling the patient and care coordination
--- NOTE | 2025-02-09 13:59 | OT.INNT ---
Occupational Therapy Notes 02/09/25 OT attempted to work with pt today. His was in the room and pt was very tired today. We will hold on OT services and resume tomorrow. Deborah Wei, OTR/L
--- NOTE | 2025-02-09 14:00 | RT.EKG_ITS ---
APPROVED REPORT Exam: Resting ECG Reason for Exam: f/u QT prolongation Patient Location: I HR:68 bpm ECG Measurements Heart Rate [address] 248 P 42 QRSd 89 QRS -61 QT 392 T -11 QTc 417 Conclusion Sinus rhythm...normal P axis, V-rate 50- [address] interval...CT >220, V-rate 50- 90 Left anterior fascicular block Early transition
--- NOTE | 2025-02-09 14:11 | CMPROGNOTE_ITS ---
Date of service: 02/09/25 Time of Service: 14:11 Care Management Progress Note Progress Note Text Progress Note Text: Ed was sitting in a recliner when CM met with him. He appeared to be sleeping comfortably and was accompanied by his , Mckenzie, who shares will CM that she has made progress over the past few days regarding his LTM application, DME delivery, and her FMLA paperwork. Mckenzie ran into a snag while filling out the LTM application, because his Medicare card isn't legible, reporting that it may have gone through the wash. CM provided Mckenzie with a copy of the card we have on file, along with contact information for obtaining a replacement card. Mckenzie expressed that she is exhausted, but has already received a call from [facility] and is hopeful they will be able to provide caregiver services in the near future. She feels comfortable with the plan to bring Ed home once he is cleared medically, and is looking forward to getting support from Home Health. Discharge Potential Discharge Needs: PCP F/U Appt Anticipated Barriers to Discharge: None Identified Patient/Family Education Needs: Review discharge instructions, discuss Ask Me Three Transportation: Private vehicle ( will drive, will need a lift assist.) Plan: Anticipate, Ed will discharge home via private vehicle with family once medically ready (likely Thursday), and will require a lift assist. He will follow up with community providers and continue per his discharge plan of care. [facility] RN/PT/OT/NON PROFIT JOB TITLES services will be ordered. DME was coordinated by CM, and is already set up in the home. CM will follow Social Determinants of Health Screening Social Determinants of health last assessed in clinic: 02/09/25 Will the Patient Participate in the Screening?: Yes Do you worry about having a steady place to live?: no Problems where you live: no known problems In the past 12 months, have you had to go without electric, gas, oil or water in your home?: no 1. Within the past 12 months, we worried whether our food would run out before we got money to buy more.: Never true 2. Within the past 12 months, the food we bought just didn't last and we didn't have money to get more.: Never true Has lack of transportation kept you from medical appointments or from doing things needed for daily living?: no Has anyone in your life made you feel unsafe or unsupported?: no How hard is it for you to pay for the very basics like food, housing, medical care, and heating? Would you say it is:: Not hard at all Do you want help finding or keeping work or a job?: I do not need or want help If for any reason you need help with day-to-day activities such as bathing, preparing meals, shopping, managing finances, etc., do you get the help you need?: I get all the help I need How often do you feel lonely or isolated from those around you?: Never Do you speak a language other than Kazakh at home?: No Does the patient want assistance with any of the above?: No
[2025-02-09] MEDS: Potassium Chloride 20 MEQ TABCR 40 MEQ PO (15:29)
[2025-02-09] MEDS: levoFLOXacin 500 MG, levoFLOXacin 250 MG 750 MG PO (17:03)
[2025-02-10 04:15] VITALS: BP 142/71; PULSE 60; RESP 16; TEMP 36.1; O2SAT 94
[2025-02-10] MEDS: Omeprazole 20 MG CAPCR PO (06:41)
--- NOTE | 2025-02-10 08:37 | PT.INTREAT ---
PT Notes Visit Reasons: Cellulitis Inpatient Physical Therapy Treatment Note [facility] Date: 02/10/2025 PRECAUTIONS: Standard, Fall, Parkinson?s, Greenberg catheter, SUBJECTIVE: Pt reported feeling well and hungry this morning. Pt reported wanting to go home OBJECTIVE: General observation: Pt lying in bed when PT arrived. Pt away and eyes open, and able to keep them open while speaking. Pt was also sitting in align with the bed and wasn?t leaning to the right like previous sessions. PAIN: no pain reported VITALS: ? Monitored by Nursing AM session: Therapeutic Activities ([id number][]): Direct one-on-one instruction in dynamic activities to improve functional performance. ? BED MOBILITY/TRANSFERS?Supine to sit EOB: Min A of 1 for B LE, Sit-stand:? From the bed: Min A of 1 and SBA of 1 to help with transition of hand from armrest to FWW ? From Elevated Wheelchair (post50 feet): Min A of 1 From Elevated Wheelchair (post 70 feet): Min A of 1 From Elevated Wheelchair (post stairs): Min A of 1 Stand-sit: Min A of 1. Pt able to reach back and hold onto chair before sitting. ? Ambulation: Pt ambulated 150 total feet, 50 feet w/FWW and 100 feet with 4WW with CGA of 1 and SBA of 1 following with a wheelchair. Stairs: pt ambulated 3 4inch steps and 2 6inch steps twice, with railings on both sides, Min A of 1. Pt needed verbal cueing to take one step at a time, and for foot placement. Provided skilled cues and instruction on performance and technique throughout. ASSESSMENT:?As pt ambulated with the FWW pt asked if we could grease the wheel as he felt it wasn?t rolling easily. PT had the pt sit down and spun the wheel showing him it does spin. PT then when a got the 4WW. As the pt was moving for efficiently today compared to previous sessions, this would allow the pt to advance. Pt was able to ambulate 100 feet with the 4WW and needed CGA. Pt needed mild tactile adjustments to the walker to help with turning, but pt showed no signs of unsteadiness. Pt was able to complete the stairs twice. Pt started with a reciprocal patter going up and down. Pt would catch his heel descending or not have his heel fully on the step before ascending, and had difficulty keeping his hands in front of his body. PT provided verbal cueing and pt was able to adjust but couldn?t maintain. PT had the pt perform a step to pattern. This helped the pt as it made him slow down and perform each adjustment before he took another step. Pt still scuffed his heel on the step and had difficulty bringing his hands in front with the step to pattern, but it wasn?t as severe as a reciprocal step pattern. Although pt has improved since arriving. Pt still continues to have decreased activity tolerance and difficulty with proper motor recruitment. Pt would benefit from HHPT to continue to help address these concerns. ?PLAN: 1-2x/day, 7 days/week x 1 week. Plan of care has been reviewed with the SAFETY ADMINISTRATOR providing the service under Physical Therapy direction. Initiate Physical Therapy intervention for pain management as needed, strengthening, bed mobility, transfers, gait, balance training, and use of assistive device ?TREATMENT CODE/TIME: Am [id number]/7:45am-8:15am DISCHARGE RECOMMENDATION: HHPT Written by: Mendel Baeza DPAARON Supervised by Mala Waldron PT:
[2025-02-10] MEDS: Docusate Sodium 100 MG CAP PO (08:51)
[2025-02-10] MEDS: Potassium Chloride 20 MEQ TABCR PO (08:51)
[2025-02-10] MEDS: Tamsulosin 0.4 MG CAPCR PO (08:51)
[2025-02-10] MEDS: Escitalopram 10 MG TAB PO (08:52)
[2025-02-10] MEDS: Normal Saline Flush 10 ML SYR IVP (08:52)
[2025-02-10] MEDS: Enoxaparin 120 MG/0.8 ML SYR SC (08:52)
--- NOTE | 2025-02-10 08:52 | PDOC.CMPRO ---
Date of service: 02/10/25 Time of Service: 08:52 Care Management Progress Note Discharge Potential Discharge Needs: PCP F/U Appt Anticipated Barriers to Discharge: None Identified Patient/Family Education Needs: Review discharge instructions, discuss Ask Me Three Transportation: Private vehicle Plan: Anticipate Ed will discharge home with [facility] RN/PT/OT/COMPUTER SYSTEMS SOFTWARE ENGINEER services. will provide transportation, patient will follow up with community providers and continue per his discharge plan of care. Hospital bed was ordered, is waiting on delivery. Social Determinants of Health Screening Social Determinants of health last assessed in clinic: 02/09/25 Will the Patient Participate in the Screening?: Yes Do you worry about having a steady place to live?: no Problems where you live: no known problems In the past 12 months, have you had to go without electric, gas, oil or water in your home?: no Has lack of transportation kept you from medical appointments or from doing things needed for daily living?: no Has anyone in your life made you feel unsafe or unsupported?: no How hard is it for you to pay for the very basics like food, housing, medical care, and heating? Would you say it is:: Not hard at all Do you want help finding or keeping work or a job?: I do not need or want help If for any reason you need help with day-to-day activities such as bathing, preparing meals, shopping, managing finances, etc., do you get the help you need?: I get all the help I need How often do you feel lonely or isolated from those around you?: Never Do you speak a language other than Luxembourgish at home?: No Does the patient want assistance with any of the above?: No
[2025-02-10 09:09] VITALS: BP 125/74; PULSE 75; TEMP 36.3; O2SAT 93
--- NOTE | 2025-02-10 09:31 | PDOC.HHF2F ---
Date of service: 02/10/25 Time of Service: 09:31 Home Health Referral Home Health Orders Clinical synopsis of why skilled professionals are needed: 64 year old man with history of parkinsons disease, unprovoked RLE DVT, BMI 38, depression, and BPH who presented February 04, brought in by ambulance for left knee wound with surrounding redness, and fever to 103,altered mental status and generalized weakness. Admission WBC was 21 and lactate 2.6. He was admitted and treated with ceftriaxone, vancomycin, and doxycyline. The redness spread into his left foot 02/06 and up his thigh and ceftriaxone was changed to ceftazadime to cover pseudomonas and ultrasound was done. Vancomycin was stopped because cultures were negative and there was no signs of purulence. The ultrasound showed a large superficial thrombosis in the thigh (see below). The redness and swelling of the LLE was still slow to improve so an MRI was done and surgical consult requested 02/08. MRI did not show abscess, osteo, or other complication. Dr. Rollins from surgery did not recommend debridement of the wound, which was not within the cellulitic area. Compression was started as was topical steroid and diphenhydramine/zinc cream for local itching and dermatitis. He did improve and his antibiotics were changed to oral levofloxacin 02/09 in anticipation of discharge, but he was more unsteady on his feet with PT that day and discharge was postponed. Orthostatics were checked, as he is at risk for autonomic instability with parkinsons, but he was not orthostatic. He did well with PT on 02/10 and was dicharged with a plan for ongoing home health PT along with OT and nursing. As above the vascular ultrasound did show a large 11cm greater saphenous vein superficial thrombosis in the thigh (proximal to the cellulitis) but no DVT. This was despite reporting he had been taking his apixaban regularly. Anti-Xa assay was sent out and anticoagulation was changed to enoxaparin 1mg/kg BID on 02/06. This was reviewed with [facility] hematology fellow 02/08 who recommended we continue this, discharge him on 100mg subcut BID until he could be seen on follow [place] coagulation subspecialist (Dr. Antony or colleagues[place] [facility] [place] Mr. Gary [place] seen after his previous DVT. He was found to be retaining urine and clark catheter was placed. He was started on tamsulosin. He was started on tamsulosin. He will need urology follow up in a week or so with a plan for home health to remove the clark catheter the morning of that appointment. His potassium was low and was supplemented and he was discharged on 20mEq. He should have labs as below and follow up with PCP within the week. Medical diagnosis necessitation home health referral: urinary retention, cellulitis, parkinsons Registered Nurse: Check all that apply Assess for exacerbation of medical condition, instruct patient/caregivers on signs and symptoms to report for early detection: Ordered Physical Therapist: Check all that apply Increase strength & endurance for safe mobility at home: Ordered To design/establish home maintenance program: Ordered Fall reduction therapy program for patient with history of frequent falls: Ordered Home safety evaluation and teaching/gait training including stair management (if applicable): Ordered Occupational Therapist: Evaluate and treat for patient unable to perform ADL/IADL/self-care: Ordered Sow Farm Technician: Assist with community resources: Ordered Assist with mosaic technician care planning: Ordered Home Bound Status Requires the aid of supportive device (check all that apply): Walker Patient has a condition such that leaving home is medically contraindicated (Describe): Parkinson's disease, high risk for falls Describe why leaving home would require a considerable and taxing effort: Requires frequent rest periods and Safety Concerns: describe (fall risk) Encounter Date and Reason: I certify that a FTF encounter for this patient was performed on February 10, 2025 and that such encounter was related to the primary reason the patient requires home health services. The encounter was conducted in the following manner: By me as the certifying physician, COMPUTER SYSTEMS TECHNOLOGY INSTRUCTOR, PA or By an inpatient physician, COMPUTER SYSTEMS TECHNOLOGY INSTRUCTOR or PA during an inpatient stay who communicated findings to me, Certification And Authentication I certify that I composed the above information based on my clinical judgment relating to this patient's medical condition and, if applicable, clinical findings communicated to me by the NPP or inpatient physician who performed the FTF encounter. Name of Provider that will be monitoring home health services: Heena Martínez
--- NOTE | 2025-02-10 11:18 | W.PALLCONSUL ---
Date of service: 02/10/25 Time of Service: 12:21 History of Present Illness Narrative: Nickolas was seen in his room with his , Mckenzie present. He was lying in bed with his eyes closed. Discussion was with Mckenzie, Nickolas's and HCA. Nickolas has been seen in the past by Dr. Ward for Palliative care. He has not been see for over 5 years. Mckenzie feels it would be beneficial to reconnect with Palliative in the setting of worsening Parkinson's disease. He has a COLST form on file, states DNR/DNI. He also has AD that name Mckenzie to be HCA and his son Driss Gary as second HCA. Mckenzie works 32 hours per week and is the primary caregiver for Nickolas. She is tired and hoping for more help at home. He will have HH services upon discharge. They are also working with [employer] on getting more help in the home. Mckenzie thinks this will be put off for a few months (May) per her conversation with [employer]. She is hoping that their children will come together to help out more with Nickolas. Nickolas is able to transfer himself at home. He has a walker and an electric WC. He is eating better. No pain. Assessment and Plan Assessment and plan (1) Cellulitis of left leg: Status: Acute Assessment and plan: He will discharge home with PO Abx. (2) Acute superficial venous thrombosis of left lower extremity: Status: Acute Assessment and plan: h/o right DVT on apixaban. Current GSV clot not close to deep circulation but quite large (well over 5cm cut off at 11cm) There is concern that he developed this on apixaban. He describes good adherence. Transitioned to lovenox, to be continued at home. Mckenzie will be administering Lovenox. He will f/u with hematology. (3) BPH w urinary obs/LUTS: Status: Chronic Assessment and plan: Greenberg placed, he will need to f/u with urology (4) Obesity (BMI 30-39.9): Status: Chronic (5) Parkinson's disease: Status: Chronic Assessment and plan: Not currently on meds With falls. His is having more difficulty taking care of him at home. She is working with [employer] to get caregiving help. They do not foresee this happening before May,. He will go home with services. (6) Major depressive disorder: Status: Chronic (7) Palliative care patient: Status: Acute Assessment and plan: He was previously seen by Dr. Ward for Palliative care. He has not been seen for Palliative x5 years +. Mckenzie is interested in resuming Palliative for more support in the setting of advancing Parkinson's disease. (8) Advanced care planning/counseling discussion: Status: Acute Assessment and plan: Nickolas has previously established that he is a DNR/DNI, COLST on file. He has peviously named Mckenzie to be his HCA and his son, Driss to be second HCA. He will benefit from resuming Palliative care for more support and assistance with decision making. Review of Systems Narrative: Per HPI, per , Nickolas did not open his eyes/engage in the visit. PFSH All Active Problems (Updated 02/10/25 @ 14:06 by Lydia Guaman NP) Advanced care planning/counseling discussion (Acute) Palliative care patient (Acute) Hypokalemia (Acute) Acute superficial venous thrombosis of left lower extremity (Acute) Hyperbilirubinemia (Acute) Cellulitis of left leg (Acute) Urgency incontinence (Acute) Obesity (BMI 30-39.9) (Chronic) BPH w urinary obs/LUTS (Chronic) Chronic anticoagulation (Chronic) Eliquis for hx of unprovoked RLE DVT Memory loss (Chronic) Right rotator cuff tear (Chronic ~11/2021) Dysphagia (Chronic) Frequent falls (Chronic) Constipation (Chronic) Prediabetes (Chronic) Major depressive disorder (Chronic) E[place] at [facility] [place] Sensorineural hearing loss, bilateral (Chronic) Parkinson's disease (Chronic) Bilateral pallidotomy Obstructive sleep apnea syndrome (Chronic) Unable to tolerate CPAP Non-alcoholic fatty liver disease (Chronic) Insomnia (Chronic) Hyperlipidemia (Chronic) Gastroesophageal reflux disease (Chronic) Lumbosacral spondylosis without myelopathy (Chronic) Medical History Risk for falls Deep vein thrombosis (DVT) of right lower extremity (~02/2021) Essential hypertension Surgical History Status post reverse arthroplasty of left shoulder (08/02/20) And left shoulder arthroscopic biopsy 08/29/21 for continued pain History of revision of total replacement of left hip joint (07/21/19) S/P vasectomy S/P tonsillectomy 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 Sister No problems noted. Son Heart disease Son No problems noted. Son Depression Daughter No problems noted. Daughter No problems noted. Paternal Grandfather Heart disease Paternal Grandmother No problems noted. Maternal Grandfather No problems noted. Maternal Grandmother Depression Social History Smoking/Tobacco Use Status: Former Tobacco Use tobacco type: cigarettes Quit Date: 03/09/06 Pack-years: 25 Tobacco: How many years used: 20 Quit status: has quit before Smoking risk assessment performed?: Yes Alcohol Intake: current Alcohol Intake frequency: holidays/special occasions only Drug use: Occasionally Substance use type: marijuana Adopted: No Caregiver/Support person: No Foster care: No Household members: spouse Housing: house Number of Children: 3 number of grandchildren: 6 Communication Needs: Hard of Hearing and Corrective Lenses Education Level: high school Do you need help understanding health information?: Rarely Pets and animals: Yes Pets and animals: dog(s) Sexually active: No Do you think of yourself as: straight/heterosexual What is your relationship status?: How often do you talk on the phone with friends or family?: twice per week How often do you get together with friends or relatives?: once per week How often do you attend pentecostalism or orthodoxy services?: decline to answer Do you belong to any clubs or organized social groups?: no Panel score (0-1 are the most socially isolated patients): 2 Tati/Catholic: No preference Special tati needs: No Seatbelt use: always Helmet use: No Drive intox or ride w/intox public transit trolley driver: No Do you feel safe at home: Yes Do you feel safe in your relationship?: Yes Additional Social history: [facility] Exam Narrative Exam Narrative: General: older-appearing man, lying in hospital bed with HOB elevated, eyes closed. He did not join in the visit but stated, I want to go home. He does not appear to be in distress. HEENT: atraumatic, EOMI, mmm Neck: supple Respiratory: respirations appear even and unlabored at rest. Ext: LLE with heidy wrap Results Last Vital Signs Temp 36.3 C L 02/10/25 09:09 Pulse 75 02/10/25 09:09 Resp 16 02/10/25 04:15 BP 125/74 02/10/25 09:09 Pulse Ox 93 02/10/25 09:09 Labs 02/08/25 06:49 02/09/25 05:15 Time Spent Time Spent with Patient Time Spent(min): 67
--- NOTE | 2025-02-10 12:11 | NUR.NOTE ---
Nursing Note: pt being discharged home with significant other reviewed all instructions with pt and significant other reviewed Lovenox instructions gave instructional material pt also going home with amber tiwari reviewed how to empty bag reviewed Doroteo wrap DSG on LT leg pt will go home in their private car all belongings given to pt
[2025-02-10 12:50] LABS: Apixaban, Anti-Xa, P 137 ng/mL
--- NOTE | 2025-02-10 13:45 | CMDISCH_ITS ---
Date of service: 02/10/25 Time of Service: 13:45 LACE Index Scoring Tool Questions: Length of Stay (in days): 4 - 6 Was the patient admitted via the E.D.?: Yes Comorbidities: Chronic Pulmonary Disease and Liver or Renal Disease E.D. Visits: 2 Answers: Total Score: 14 Risk of Readmission: High Risk Care Management Discharge Plan Reason for Hospitalization: cellulitis Discharge Plan: Nickolas will be discharged home with new home health services for RN, PT, OT and RADIATOR MECHANIC. His Mckenzie was instructed in Lovenox injection technique and reported to CM that she feels comfortable with the process. Home health nursing will reinforce the teaching. Nickolas will follow up with his PCP and plan of care and will transport with Mckenzie. Patient/Family Education Needs: Review discharge instructions, limitations, follow up plan and discuss Ask Me Three Services Needed at Discharge: Home Health Care Services
--- NOTE | 2025-02-11 07:15 | W.PM.DS.N ---
Date of service: 02/10/25 Time of Service: 12:26 DS: Diagnosis Discharge Diagnosis (1) Cellulitis of left leg: Status: Acute (2) Acute superficial venous thrombosis of left lower extremity: Status: Acute (3) BPH w urinary obs/LUTS: Status: Chronic (4) Obesity (BMI 30-39.9): Status: Chronic (5) Parkinson's disease: Status: Chronic (6) Major depressive disorder: Status: Chronic (7) Palliative care patient: Status: Acute (8) Advanced care planning/counseling discussion: Status: Acute Discharge Plan Disposition Patient Disposition: Home W/Home Health Services Home Health Services: New Referral Condition: Improving Discharge Details Reason For Visit: Cellulitis Admit Date/Time: 02/04/25 09:17 Admit Provider: Raúl Ramirez Attending Provider: Raúl Ramirez Primary Care Provider: [facility] Hospital Course: 64 year old man with history of parkinsons disease, unprovoked RLE DVT, BMI 38, depression, and BPH who presented February 04, brought in by ambulance for left knee wound with surrounding redness, and fever to 103,altered mental status and generalized weakness. Admission WBC was 21 and lactate 2.6. He was admitted and treated with ceftriaxone, vancomycin, and doxycyline. The redness spread into his left foot 02/06 and up his thigh and ceftriaxone was changed to ceftazadime to cover pseudomonas and ultrasound was done. Vancomycin was stopped because cultures were negative and there was no signs of purulence. The ultrasound showed a large superficial thrombosis in the thigh (see below). The redness and swelling of the LLE was still slow to improve so an MRI was done and surgical consult requested 02/08. MRI did not show abscess, osteo, or other complication. Dr. Rollins from surgery did not recommend debridement of the wound, which was not within the cellulitic area. Compression was started as was topical steroid and diphenhydramine/zinc cream for local itching and dermatitis. He did improve and his antibiotics were changed to oral levofloxacin 02/09 in anticipation of discharge, but he was more unsteady on his feet with PT that day and discharge was postponed. Orthostatics were checked, as he is at risk for autonomic instability with parkinsons, but he was not orthostatic. He did well with PT on 12/5 and was dicharged with a plan for ongoing home health PT along with OT and nursing. As above the vascular ultrasound did show a large 11cm greater saphenous vein superficial thrombosis in the thigh (proximal to the cellulitis) but no DVT. This was despite reporting he had been taking his apixaban regularly. Anti-Xa assay was sent out and anticoagulation was changed to enoxaparin 1mg/kg BID on 02/06. This was reviewed with [facility] hematology fellow 02/08 who recommended we continue this, discharge him on 100mg subcut BID until he could be seen on follow up by coagulation subspecialist (Dr. Antony or colleagues) at [facility], who Mr. Gary had seen after his previous DVT. He was found to be retaining urine and clark catheter was placed. He was started on tamsulosin. He was started on tamsulosin. He will need urology follow up in a week or so with a plan for home health to remove the clark catheter the morning of that appointment. His potassium was low and was supplemented and he was discharged on 20mEq. He should have labs as below and follow up with PCP within the week. Recommendations for Follow Up Recommended tests to be ordered by follow up provider: BMP, Mg, CRP in 4-5 days Home Meds and New Rx's Prescriptions: New enoxaparin 100 mg/mL syringe 100 mg subcut Q12H Qty: 60 0RF acetaminophen 325 mg Tablet 650 mg PO Q4H PRN PRNQty: 60 0RF triamcinolone acetonide 0.1 % Cream 1 applic topical BID Qty: 60 0RF Banophen Anti-Itch 2-0.1 % Cream 1 applic topical BID PRN PRNQty: 60 0RF tamsulosin 0.4 mg Capsule 0.4 mg PO DAILY Qty: 30 0RF docusate sodium [Colace] 100 mg Capsule 100 mg PO TID Qty: 0 0RF levofloxacin 750 mg Tablet 750 mg PO Q24H 5 Days Qty: 5 0RF potassium chloride 20 mEq Tablet Extended Release 20 meq PO DAILY Qty: 14 0RF Continued lansoprazole [Prevacid] 30 mg capsule,delayed release(DR/EC) 30 mg PO DAILY Qty: 90 3RF medical marijuana 0RF escitalopram oxalate [Lexapro] 10 mg tablet 10 mg PO DAILY Discontinued polyethylene glycol 3350 [Miralax] 17 gram/dose powder 8.5 g PO DAILY PRN (Reason: constipation) Qty: 510 4RF Patient Comments: not taking apixaban 5 mg tablet 5 mg PO BID Qty: 180 3RF Rx Instructions: Take 1 tablet twice a day No Action citalopram 10 mg tablet 10 mg PO DAILY Qty: 90 3RF Discharge Instructions Additional Instructions: Use the injectable enoxaparin rather than apixaban for now until you can be seen at [facility] hematology. They are aware of your clot and plan to see you in their specialty clinic with Dr. Antony or her colleagues for follow up. You should call [facility] to coordinate this at the number below. You can continue to use the creams on the skin of the leg if it is itchy. Continue to use compression indefinitely to help prevent mcfp pain in that leg. You have 5 more days of antibiotics starting Sunday 02/11 The tamsulosin is to help you empty your bladder. You should see urology clinic in a week or so. Home health should remove the clark catheter the morning of that visit. Stand Alone Forms: Portal Information, Nursing Discharge Form Referrals: Heena Martínez NP [Primary Care Provider, Medicine] Referral Note: Your PCP will reach out for a follow up appointment, if you do not hear from them, please reach out. Andres Sheridan MD [ [facility] STAFF PHYSICIAN, Urology] Referral Note: They will reach out with an appointment, if you do not hear from them, please reach out. Taylor Antony [ NON-[facility] STAFF PHYSICIAN, Medicine] Referral Note: [facility] Hematology/clotting specialist. [phone] Activity:: Activity as Tolerated Equipment/Supplies:: No Equipment Needed Diet:: As Tolerated Discharge Orders Discharge Orders: Discharge Order (Routine); Ordered 02/10/25 Ordered By: John Osborn Discharge Data Discharge Date/Time-TO BE ENTERED AT DEPARTURE: 02/10/25 13:05 DS: Summary Time Spent with Patient providing and/or coordinating discharge services: Greater than 30 minutes Status at Discharge Functional status at discharge: uses cane/walker Overall status at discharge: patient is progressing back to baseline Mental Status: mental status grossly normal Speech and Movement: slowed movement Mood: congruent mood Affect: normal affect Exam Narrative Exam Narrative: General: Alert and oriented, no acute distress. CV: RRR Lungs: Bilateral equal chest rise, non-labored breathing Extremities: Warm; improved edema of LLE with fading dark erythema to level of mid-calf, 3cm circular scab wound below left knee (proximal to area of redness) without surrounding erythema, no additional wounds or drainage Neuro: speech/movement slow, resting hand tremor, no change Psych Mental Status: mental status grossly normal Speech and Movement: slowed movement Mood: congruent mood Affect: normal affect DS: Data Vitals/I&O Vitals and I&O: Vital Signs Temperature 36.3 C L 02/10/25 09:09 Temperature Source Temporal Artery Scan 02/10/25 09:09 Pulse 75 02/10/25 09:09 Pulse Rhythm Regular 02/04/25 06:44 Pulse Strength Normal 02/04/25 06:44 Pulse 83 02/04/25 10:00 Respiratory Rate 16 02/10/25 04:15 Respiratory Effort Normal 02/04/25 11:38 Respiratory Depth Normal 02/04/25 11:38 Respiratory Pattern Normal 02/04/25 06:44 Blood Pressure 125/74 02/10/25 09:09 Blood Pressure Mean 91 02/10/25 09:09 Blood Pressure Position Sitting 02/04/25 06:44 Pulse Oximetry 93 02/10/25 09:09 Oxygen Delivery Method Room Air 02/10/25 09:09 Oxygen Flow Rate 0 02/10/25 09:09 Pain Level 0 02/10/25 10:42 Comment Pt sleeping, pt refused vitals. Pt's vitals are Q4 while awake, [employer] will get vitals when pt wakes. 02/10/25 03:38 Intake & Output 02/10/25 02/10/25 02/11/25 11:59 23:59 11:59 Intake Total 240 / 240 Output Total 700 / 700 Balance -460 / -460 Intake: Oral 240 / 240 Output: Urine 700 / 700 Other: Urine Color Straw Urine Appearance Clear Comment [employer] checked pt's clark, no need to empty. Stool Size Copious Stool Characteristics Formed Brown Data Completed and Pending Pending Labs at Discharge: 02/04/25 02/04/25 02/04/25 05:22 08:13 13:50 WBC 21.37 H RBC 4.81 Hgb 15.0 Hct 44.2 MCV 92 MCH 31.2 MCHC 33.9 RDW 12.7 Plt Count 192 MPV 9.6 Immature Gran % 0.0 Neutrophils % 90.0 Lymphocytes % 2.0 Monocytes % 7.0 Eosinophils % 1.0 Basophils % 0.0 Nucleated RBC % 0.0 Absolute Neutrophils 19.23 H Absolute Lymphocytes 0.43 L Absolute Monocytes 1.50 H Absolute Eosinophils 0.21 Absolute Basophils 0.00 RBC Morphology Normal Apixaban Apixaban Interp Apixaban Cautions VBG pH 7.43 H VBG pCO2 40 L VBG pO2 29 VBG HCO3 26 VBG Total CO2 23 L VBG O2 Saturation 59 VBG Base Excess 2 VBG Lactate 2.6 H* Sodium 138 Potassium 3.4 L Chloride 102 Carbon Dioxide 25.7 Anion Gap 10.3 BUN 16 Creatinine 1.29 H Est GFR (CKD-EPI 2020) 55.95 Glucose 169 H Calcium 9.0 Magnesium 1.4 L Total Bilirubin 1.40 H AST 20 ALT 25 Alkaline Phosphatase 84 C-Reactive Protein Total Protein 6.9 Albumin 4.2 Urine Color Dark Yellow Urine Clarity Clear Urine pH 6.0 Ur Specific [place] 1.020 Urine Protein 30 H Urine Ketones 15 H Urine Blood Trace-intact H Urine Nitrite Positive H Urine Bilirubin Small H Urine Urobilinogen 4.0 H Ur Leukocyte Esterase Negative Urine RBC 0-2 Urine WBC Negative Ur Epithelial Cells Rare Urine Crystals Negative Urine Bacteria Rare Urine Casts 0-2 Hyaline Urine Mucus Heavy Ur Culture Indicated? No Urine Glucose 100 H Vancomycin Peak COVID-19 Source Nasopharynx SARS-CoV-2 (PCR) Negative Influenza Type A (PCR) Negative Influenza Type B (PCR) Negative RSV (PCR) Negative 02/04/25 02/05/25 02/06/25 18:00 03:55 06:29 WBC 20.38 H 19.33 H 13.97 H RBC 4.25 L 4.25 L 4.10 L Hgb 13.1 L 13.1 L 13.2 L Hct 38.8 L 39.1 L 37.8 L MCV 91 92 92 MCH 30.8 30.8 32.2 MCHC 33.8 33.5 34.9 RDW 13.1 13.0 12.7 Plt Count 163 144 156 MPV 9.6 9.6 10.4 Immature Gran % 0.4 0.3 0.5 Neutrophils % 89.8 90.3 86.5 Lymphocytes % 2.3 2.5 4.7 Monocytes % 7.0 6.5 7.3 Eosinophils % 0.3 0.1 0.6 Basophils % 0.2 0.3 0.4 Nucleated RBC % 0.0 0.0 0.0 Absolute Neutrophils 18.30 H 17.45 H 12.08 H Absolute Lymphocytes 0.47 L 0.48 L 0.66 L Absolute Monocytes 1.43 H 1.26 H 1.02 H Absolute Eosinophils 0.06 0.02 0.08 Absolute Basophils 0.04 0.06 0.06 RBC Morphology Apixaban Apixaban Interp Apixaban Cautions VBG pH VBG pCO2 VBG pO2 VBG HCO3 VBG Total CO2 VBG O2 Saturation VBG Base Excess VBG Lactate 1.9 1.1 Sodium 139 138 138 Potassium 3.1 L 3.2 L 3.0 L Chloride 106 106 103 Carbon Dioxide 24.5 25.7 26.2 Anion Gap 8.5 6.3 8.8 BUN 19 17 12 Creatinine 1.21 H 1.05 0.89 Est GFR (CKD-EPI 2020) 60.24 70.95 85.86 Glucose 154 H 114 H 110 H Calcium 8.3 8.3 8.4 Magnesium 1.8 1.7 Total Bilirubin 1.10 1.00 0.60 AST 15 16 17 ALT 20 19 20 Alkaline Phosphatase 67 65 64 C-Reactive Protein Total Protein 5.9 5.8 5.6 L Albumin 3.5 3.3 3.3 Urine Color Urine Clarity Urine pH Ur Specific Valencia Urine Protein Urine Ketones Urine Blood Urine Nitrite Urine Bilirubin Urine Urobilinogen Ur Leukocyte Esterase Urine RBC Urine WBC Ur Epithelial Cells Urine Crystals Urine Bacteria Urine Casts Urine Mucus Ur Culture Indicated? Urine Glucose Vancomycin Peak 12.6 L COVID-19 Source SARS-CoV-2 (PCR) Influenza Type A (PCR) Influenza Type B (PCR) RSV (PCR) 02/07/25 02/08/25 02/09/25 09:00 06:49 05:15 WBC 10.97 H 9.15 RBC 4.21 L 4.10 L Hgb 13.4 L 12.9 L Hct 38.5 L 38.0 L MCV 91 93 MCH 31.8 31.5 MCHC 34.8 33.9 RDW 12.9 12.8 Plt Count 193 208 MPV 9.7 9.8 Immature Gran % 1.1 1.7 Neutrophils % 80.4 73.9 Lymphocytes % 7.6 11.1 Monocytes % 10.0 11.8 Eosinophils % 0.5 1.0 Basophils % 0.4 0.5 Nucleated RBC % 0.0 0.0 Absolute Neutrophils 8.82 H 6.75 H Absolute Lymphocytes 0.83 L 1.02 L Absolute Monocytes 1.10 H 1.08 H Absolute Eosinophils 0.05 0.09 Absolute Basophils 0.04 0.05 RBC Morphology Apixaban Pending Apixaban Interp Pending Apixaban Cautions Pending VBG pH VBG pCO2 VBG pO2 VBG HCO3 VBG Total CO2 VBG O2 Saturation VBG Base Excess VBG Lactate Sodium 140 140 141 Potassium 4.0 D 3.4 L 3.8 Chloride 107 105 106 Carbon Dioxide 24.7 27.7 27.2 Anion Gap 8.3 7.3 7.8 BUN 10 8 L 7 L Creatinine 0.79 0.79 0.80 Est GFR (CKD-EPI 2020) 98.52 98.52 97.10 Glucose 142 H 108 H 101 Calcium 8.2 L 8.5 8.7 Magnesium 1.7 Total Bilirubin 0.50 AST 20 ALT 23 Alkaline Phosphatase 63 C-Reactive Protein 8.86 H Total Protein 5.9 Albumin 3.4 Urine Color Urine Clarity Urine pH Ur Specific [place] Urine Protein Urine Ketones Urine Blood Urine Nitrite Urine Bilirubin Urine Urobilinogen Ur Leukocyte Esterase Urine RBC Urine WBC Ur Epithelial Cells Urine Crystals Urine Bacteria Urine Casts Urine Mucus Ur Culture Indicated? Urine Glucose Vancomycin Peak COVID-19 Source SARS-CoV-2 (PCR) Influenza Type A (PCR) Influenza Type B (PCR) RSV (PCR) PFSH All Active Problems (Updated 02/11/25 @ 00:01 by BRITTANY MELENDEZ) Advanced care planning/counseling discussion (Acute) Palliative care patient (Acute) Hypokalemia (Acute) Acute superficial venous thrombosis of left lower extremity (Acute) Hyperbilirubinemia (Acute) Cellulitis of left leg (Acute) Urgency incontinence (Acute) Obesity (BMI 30-39.9) (Chronic) BPH w urinary obs/LUTS (Chronic) Chronic anticoagulation (Chronic) Eliquis for hx of unprovoked RLE DVT Memory loss (Chronic) Right rotator cuff tear (Chronic ~11/2021) Dysphagia (Chronic) Frequent falls (Chronic) Constipation (Chronic) Prediabetes (Chronic) Major depressive disorder (Chronic) ECT at [facility] 1997 Sensorineural hearing loss, bilateral (Chronic) Parkinson's disease (Chronic) Bilateral pallidotomy Obstructive sleep apnea syndrome (Chronic) Unable to tolerate CPAP Insomnia (Chronic) Hyperlipidemia (Chronic) Gastroesophageal reflux disease (Chronic) Lumbosacral spondylosis without myelopathy (Chronic) Medical History Risk for falls Deep vein thrombosis (DVT) of right lower extremity (~02/2021) Essential hypertension Surgical History Status post reverse arthroplasty of left shoulder (08/02/20) And left shoulder arthroscopic biopsy 08/29/21 for continued pain History of revision of total replacement of left hip joint (07/21/19) S/P vasectomy S/P tonsillectomy 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 Sister No problems noted. Son Heart disease Son No problems noted. Son Depression Daughter No problems noted. Daughter No problems noted. Paternal Grandfather Heart disease Paternal Grandmother No problems noted. Maternal Grandfather No problems noted. Maternal Grandmother Depression Social History Smoking/Tobacco Use Status: Former Tobacco Use tobacco type: cigarettes Quit Date: 03/09/06 Pack-years: 25 Tobacco: How many years used: 20 Quit status: has quit before Smoking risk assessment performed?: Yes Alcohol Intake: current Alcohol Intake frequency: holidays/special occasions only Drug use: Occasionally Substance use type: marijuana Adopted: No Caregiver/Support person: No Foster care: No Household members: spouse Housing: house Number of Children: 3 number of grandchildren: 6 Communication Needs: Hard of Hearing and Corrective Lenses Education Level: high school Do you need help understanding health information?: Rarely Pets and animals: Yes Pets and animals: dog(s) Sexually active: No Do you think of yourself as: straight/heterosexual What is your relationship status?: How often do you talk on the phone with friends or family?: twice per week How often do you get together with friends or relatives?: once per week How often do you attend druze or oriental orthodox services?: decline to answer Do you belong to any clubs or organized social groups?: no Panel score (0-1 are the most socially isolated patients): 2 Tati/Protestant: No preference Special tati needs: No Seatbelt use: always Helmet use: No Drive intox or ride w/intox dedicated regional driver: No Do you feel safe at home: Yes Do you feel safe in your relationship?: Yes Additional Social history: [employer] Time Spent with Patient Time Spent with Patient: 45-69 minutes Time was spent: preparing to see the patient(eg.review tests), obtaining and/or reviewing separately otained hiistory, ordering medications,tests, procedures, referring, communicating with other health client care manager, indepentently interpreting results, counseling the patient and care coordination
== END 2025-02-10 13:05 | disposition home health service (06) | DRG 603 ==
LOC: ER 09:30 → MS 02-05 07:24
PROVIDERS: Emergency Medicine; Family Medicine; Admitting Provider Family Medicine; Emergency Provider Emergency Medicine; PCP Nurse Practitioner Family; Responsible Provider Family Medicine; Visit Provider Family Medicine
DX: L03.116 Cellulitis of left lower limb (principal); N13.8 Other obstructive and reflux uropathy; E87.20 Acidosis, unspecified; I82.812 Embolism and thrombosis of superficial veins of left lower extremity; R29.6 Repeated falls; N40.1 Benign prostatic hyperplasia with lower urinary tract symptoms; K76.0 Fatty (change of) liver, not elsewhere classified; E66.9 Obesity, unspecified; Z79.01 Long term (current) use of anticoagulants; E87.6 Hypokalemia; R41.82 Altered mental status, unspecified; N39.41 Urge incontinence; R41.3 Other amnesia; R13.10 Dysphagia, unspecified; K59.00 Constipation, unspecified; R73.03 Prediabetes; F32.9 Major depressive disorder, single episode, unspecified; H90.3 Sensorineural hearing loss, bilateral; G47.33 Obstructive sleep apnea (adult) (pediatric); K21.9 Gastro-esophageal reflux disease without esophagitis; M47.817 Spondylosis without myelopathy or radiculopathy, lumbosacral region; Z96.642 Presence of left artificial hip joint; Z96.612 Presence of left artificial shoulder joint; F12.90 Cannabis use, unspecified, uncomplicated; Z86.711 Personal history of pulmonary embolism; I87.2 Venous insufficiency (chronic) (peripheral); S81.802A Unspecified open wound, left lower leg, initial encounter; W19.XXXA Unspecified fall, initial encounter; D72.829 Elevated white blood cell count, unspecified; G20.A1 Parkinson's disease without dyskinesia, without mention of fluctuations
CPT/HCPCS: 00123; 36415; 80048; 80053; 80299; 82805; 87040; 87637; 93005; 96365; 96366; 96367; 96375; 97112; 97161; 97166; 97530; 97535; 99285; 70450; 71046; 73720; 80202; 81003; 81015; 83605; 83735; 85025; 86140; 87086; 93010; 93971; 99222; 99231; 99232; 99233; 99239; G0378; J0131; J0696; J0713; J1650; J3373; J3475

== ENCOUNTER 2025-02-12 12:01 | Emergency (ER) | payer OTHER, MEDICARE, SELFPAY ==
[2025-02-12 12:04] VITALS: BP 116/75; PULSE 75; RESP 18; TEMP 36.7; O2SAT 94
[2025-02-12 12:50] VITALS: BP 116/75; PULSE 75; RESP 18; TEMP 36.7; O2SAT 94
--- NOTE | 2025-02-12 14:15 | W.ED.GENAD ---
Discharge Plan Disposition Patient Disposition: Home Condition: Stable Discharge Details Clinical Impression: Hematuria Primary Care Provider: Heena Martínez ED Provider: Tal Quinones Home Meds and New Rx's Prescriptions: Continued lansoprazole [Prevacid] 30 mg capsule,delayed release(DR/EC) 30 mg PO DAILY Qty: 90 3RF escitalopram oxalate [Lexapro] 10 mg tablet 10 mg PO DAILY enoxaparin 100 mg/mL syringe 100 mg subcut Q12H Qty: 60 0RF acetaminophen 325 mg Tablet 650 mg PO Q4H PRN PRNQty: 60 0RF triamcinolone acetonide 0.1 % Cream 1 applic topical BID Qty: 60 0RF Banophen Anti-Itch 2-0.1 % Cream 1 applic topical BID PRN PRNQty: 60 0RF tamsulosin 0.4 mg Capsule 0.4 mg PO DAILY Qty: 30 0RF docusate sodium [Colace] 100 mg Capsule 100 mg PO TID Qty: 0 0RF levofloxacin 750 mg Tablet 750 mg PO Q24H 5 Days Qty: 5 0RF potassium chloride 20 mEq Tablet Extended Release 20 meq PO DAILY Qty: 14 0RF citalopram 10 mg tablet 10 mg PO DAILY Patient Comments: TAKE ONE TABLET BY MOUTH EVERY DAY No Action citalopram 10 mg tablet 10 mg PO DAILY Qty: 90 3RF Discharge Instructions Instructions: Blood in Urine (Hematuria), Adult ED Additional Instructions: Please drink plenty of clear fluid to stay hydrated. Please follow-up with urology. Schedule appointment to be seen in follow-up early this week. Please follow-up with your primary care physician. Return to the emergency department immediately for any worsening or new concerning symptoms including urinating toya blood or obstruction of urinary catheter. Stand Alone Forms: Portal Information Referrals: Heena Martínez NP [Primary Care Provider, Medicine] Andres Sheridan MD [ [facility] STAFF PHYSICIAN, Urology] HPI General Mode of arrival: wheelchair. Date/Time Provider Initiated Documentation: 02/12/25 12:10. Limitations to Documentation: no limitations. Information obtained by: patient. HPI Narrative: HISTORY OF PRESENT ILLNESS This is a 64-year-old male with a history of deep vein thrombosis (DVT), now on Lovenox, presenting with hematuria. The patient was recently admitted and discharged 2 days ago. He has DVT in his right leg and is on Lovenox injections. The discharge summary from 02/10/2025 noted an unprovoked right lower extremity DVT developed while on apxiban and superimposed cellulitis of the right lower extremity. Vascular ultrasound revealed an 11 cm greater saphenous vein superficial thrombus in the thigh proximal to the cellulitis. Patient was discharged on Lovenox with a follow-up with hematology at [facility] [place]. He was found to have urinary retention, and a Greenberg catheter was placed with a planned follow-up with urology. The patient reports that he has been administering Lovenox injections twice daily. He states that his leg condition has improved, with the infection site showing signs of healing. The patient experienced urinary retention, necessitating the placement of a Greenberg catheter 6 days ago. This morning, he observed blood in his urine for the first time, accompanied by clots. He reports no previous instances of hematuria. He also mentions discomfort around the head of his penis and neck. The catheter has been draining clear fluid, with the best drainage observed yesterday. Prior to his hospital visit, he was unable to urinate. He notes increased scrotal swelling over the past few months. He has not consulted a urologist post-discharge. He has been maintaining good hydration. Related Data Home Medications ?Medication ?Instructions ?Recorded ?Confirmed citalopram 10 mg tablet 10 mg PO DAILY #90 tabs 02/24/24 08/29/24 lansoprazole 30 mg capsule,delayed 30 mg PO DAILY #90 caps 02/24/24 02/12/25 release (Prevacid) escitalopram oxalate 10 mg tablet 10 mg PO DAILY 02/04/25 02/12/25 (Lexapro) enoxaparin 100 mg/mL subcutaneous 100 mg subcut Q12H #60 mL 02/09/25 02/12/25 syringe acetaminophen 325 mg tablet 650 mg (2 x 325 mg) PO Q4H PRN PRN 02/10/25 02/12/25 #60 tabs diphenhydramine-zinc acetate 2 1 applic topical BID PRN PRN #60 02/10/25 02/12/25 %-0.1 % topical cream (Banophen grams Anti-Itch) docusate sodium 100 mg capsule 100 mg PO TID #0 caps 02/10/25 02/12/25 (Colace) levofloxacin 750 mg tablet 750 mg PO Q24H 5 days #5 tabs 02/10/25 02/12/25 potassium chloride 20 mEq 20 meq PO DAILY #14 tabs 02/10/25 02/12/25 tablet,extended release tamsulosin 0.4 mg capsule 0.4 mg PO DAILY #30 caps 02/10/25 02/12/25 triamcinolone acetonide 0.1 % 1 applic topical BID #60 grams 02/10/25 02/12/25 topical cream citalopram 10 mg tablet 10 mg PO DAILY 02/12/25 02/12/25 Previous Rx's ?Medication ?Instructions ?Recorded citalopram 10 mg tablet 10 mg PO DAILY #90 tabs 02/24/24 lansoprazole 30 mg capsule,delayed 30 mg PO DAILY #90 caps 02/24/24 release (Prevacid) enoxaparin 100 mg/mL subcutaneous 100 mg subcut Q12H #60 mL 02/09/25 syringe acetaminophen 325 mg tablet 650 mg (2 x 325 mg) PO Q4H PRN PRN 02/10/25 #60 tabs diphenhydramine-zinc acetate 2 1 applic topical BID PRN PRN #60 02/10/25 %-0.1 % topical cream (Banophen grams Anti-Itch) docusate sodium 100 mg capsule 100 mg PO TID #0 caps 02/10/25 (Colace) levofloxacin 750 mg tablet 750 mg PO Q24H 5 days #5 tabs 02/10/25 potassium chloride 20 mEq 20 meq PO DAILY #14 tabs 02/10/25 tablet,extended release tamsulosin 0.4 mg capsule 0.4 mg PO DAILY #30 caps 02/10/25 triamcinolone acetonide 0.1 % 1 applic topical BID #60 grams 02/10/25 topical cream Allergies Allergy/AdvReac Type Severity Reaction Status Date / Time oxybutynin Allergy Severe Hallucinati Verified 02/12/25 12:17 ons/suicida l mirabegron (From Myrbetriq) Allergy Unknown suicidal Verified 02/12/25 12:17 ideations/dreams fentanyl AdvReac Severe HALLUCINATIONS; Verified 02/12/25 12:17 SUICIDAL IDEATION duloxetine (From Cymbalta) AdvReac Intermediate Nausea Verified 02/12/25 12:17 General Stated Complaint: Urinary RENO: 3 Review of Systems All systems reviewed & are unremarkable except as noted in HPI and below Exam Const General: cooperative and no acute distress HENMT Mouth: moist mucous membranes Eyes Conjunctivae: normal conjunctivae Sclera: normal sclerae Cardio Rate: regular rate and not tachycardic Rhythm: regular rhythm GI Palpation: soft, not firm, no guarding, no masses, not rigid and nontender Penis: normal penis Scrotum: edematous Other: Greenberg catheter intact Skin General skin exam: no rashes or lesions noted Neuro General: patient alert, patient awake and tone normal Extrem General: no edema Psych Other: Flat affect Course Vital Signs Vital signs: Vital Signs Temperature 36.7 C 02/12/25 12:04 Pulse 75 02/12/25 12:04 Respiratory Rate 18 02/12/25 12:04 Blood Pressure 116/75 02/12/25 12:04 Pulse Oximetry 94 02/12/25 12:04 Temperature 36.7 C 02/12/25 12:50 Temperature Source Oral 02/12/25 12:50 Pulse 75 02/12/25 12:50 Respiratory Rate 18 02/12/25 12:50 Blood Pressure 116/75 02/12/25 12:50 Blood Pressure Position Sitting 02/12/25 12:50 Pulse Oximetry 94 02/12/25 12:50 Oxygen Delivery Method Room Air 02/12/25 12:50 Oxygen Flow Rate 0 02/12/25 12:50 Medical Decision Making ASSESSMENT AND PLAN Initial Assessment: 64-year-old male with DVT in right leg, on Lovenox shots, urinary retention now with catheter for the past 6 days, here with blood in urine noted this morning. Chronic scrotal swelling. Differential Diagnosis: - Hematuria with anticoagulation ED Course: - Greenberg catheter flushed to ensure no obstruction by clots nondraining clear liquid - I reviewed urine culture from 02/04/2025, no growth. - Patient requires continued anticoagulation and there is no signs of active heavy bleeding. Plan to continue Lovenox. - Plan for close outpatient follow-up with urology this week. Clinical impression: - Hematuria - Anticoagulation on Lovenox - Urinary retention with Greenberg catheter placement Disposition: - Follow-Up: Urology follow-up Patient Education: Maintain adequate hydration to help flush out clots. This document was written with the assistance of [employer]. The patient consented to its use. [facility] All Active Problems Hematuria (Acute) Advanced care planning/counseling discussion (Acute) Palliative care patient (Acute) Hypokalemia (Acute) Acute superficial venous thrombosis of left lower extremity (Acute) Hyperbilirubinemia (Acute) Cellulitis of left leg (Acute) Urgency incontinence (Acute) Obesity (BMI 30-39.9) (Chronic) BPH w urinary obs/LUTS (Chronic) Chronic anticoagulation (Chronic) Eliquis for hx of unprovoked RLE DVT Memory loss (Chronic) Right rotator cuff tear (Chronic ~11/2021) Dysphagia (Chronic) Frequent falls (Chronic) Constipation (Chronic) Prediabetes (Chronic) Major depressive disorder (Chronic) ECT at [facility] [place] 1997 Sensorineural hearing loss, bilateral (Chronic) Parkinson's disease (Chronic) Bilateral pallidotomy Obstructive sleep apnea syndrome (Chronic) Unable to tolerate CPAP Insomnia (Chronic) Hyperlipidemia (Chronic) Gastroesophageal reflux disease (Chronic) Lumbosacral spondylosis without myelopathy (Chronic) Medical History Non-alcoholic fatty liver disease Risk for falls Deep vein thrombosis (DVT) of right lower extremity (~02/2021) Essential hypertension Surgical History Status post reverse arthroplasty of left shoulder (08/02/20) And left shoulder arthroscopic biopsy 08/29/21 for continued pain History of revision of total replacement of left hip joint (07/21/19) S/P vasectomy S/P tonsillectomy 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 Sister No problems noted. Son Heart disease Son No problems noted. Son Depression Daughter No problems noted. Daughter No problems noted. Paternal Grandfather Heart disease Paternal Grandmother No problems noted. Maternal Grandfather No problems noted. Maternal Grandmother Depression Social History Smoking/Tobacco Use Status: Former Tobacco Use tobacco type: cigarettes Quit Date: 03/09/06 Pack-years: 25 Tobacco: How many years used: 20 Quit status: has quit before Smoking risk assessment performed?: Yes Alcohol Intake: current Alcohol Intake frequency: holidays/special occasions only Drug use: Occasionally Substance use type: marijuana Details: edibles and smoking Adopted: No Caregiver/Support person: No Foster care: No Household members: spouse Housing: house Number of Children: 3 number of grandchildren: 6 Communication Needs: Hard of Hearing and Corrective Lenses Education Level: high school Do you need help understanding health information?: Rarely Pets and animals: Yes Pets and animals: dog(s) Sexually active: No Do you think of yourself as: straight/heterosexual What is your relationship status?: How often do you talk on the phone with friends or family?: twice per week How often do you get together with friends or relatives?: once per week How often do you attend zoroastrianism or amish services?: decline to answer Do you belong to any clubs or organized social groups?: no Panel score (0-1 are the most socially isolated patients): 2 Tati/Christianity: No preference Special tati needs: No Seatbelt use: always Helmet use: No Drive intox or ride w/intox combine driver: No Do you feel safe at home: Yes Do you feel safe in your relationship?: Yes Additional Social history: [employer]
[2025-02-12 14:26] VITALS: BP 120/68; PULSE 64; TEMP 36.6; O2SAT 93
== END 2025-02-12 14:27 | disposition home or self-care (01) ==
PROVIDERS: Emergency Provider Student in an Organized Health Care Education/Training Program; PCP Nurse Practitioner Family
DX: R31.9 Hematuria, unspecified (principal); Z79.01 Long term (current) use of anticoagulants
CPT/HCPCS: 99282 ×2

== ENCOUNTER 2025-03-02 21:43 | Emergency (ER) | payer OTHER, MEDICARE, SELFPAY ==
[2025-03-02] VITALS (18 sets, daily range): BP systolic 108–177; BP diastolic 66–107; PULSE 51–59; RESP 14–23; TEMP 36; O2SAT 92–98
--- NOTE | 2025-03-02 21:45 | RT.EKG_ITS ---
APPROVED REPORT Exam: Resting ECG Reason for Exam: syncope Patient Location: E HR:56 bpm ECG Measurements Heart Rate 56 AXIS MT [id number] P [id number] QRSd 113 QRS -54 QT 432 T 0 QTc 416 Conclusion Junctional rhythm...absent P waves, slow V-rate Left anterior fascicular block...axis(240,-40), init forces inf I have reviewed and interpreted ECG and agree with software generated interpretation.
[2025-03-02 22:15] LABS: Abs Immature Grans 0.01 10^3/uL (0.0-0.06); HCT 43.3 % (40.0-50.0); HGB 14.2 g/dL (13.5-17.5); Immature Grans % 0.2 %; MCH 31.1 pg (27.0-33.0); MCHC 32.8 % (32.0-36.0); MCV 95 fL (80-95); MPV 9.3 fL (8.0-11.0); Platelet Count 213 10^3/uL (130-400); RBC 4.56 10^6/uL (4.36-5.78); RDW 13.3 % (11.8-14.1); RDW-SD 46.6 fL; WBC 5.79 10^3/uL (4.4-10.8)
[2025-03-02 22:29] LABS: INR 1.0 (0.9-1.1); PTT Activated 30.9 sec (20.6-30.2); Prothrombin Time 9.7 sec (9.1-11.1)
[2025-03-02 22:31] LABS: ALT 43 U/L (10-49); AST 25 U/L (<34); Albumin 4.4 g/dL (3.2-5.0); Alkaline Phosphatase 72 U/L (46-116); Anion Gap 7.5 mmol/L (3-11); BUN 14 mg/dL (9-23); Bilirubin, Total 0.4 mg/dL (0.2-1.2); CO2 28.5 mmol/L (20.0-31.0); Calcium 9.2 mg/dL (8.3-10.6); Chloride 107 mmol/L (98-107); Glucose 118 mg/dL (74-106); Potassium 3.8 mmol/L (3.5-5.1); Sodium 143 mmol/L (136-145); Total Protein 7.5 g/dL (5.7-8.2)
[2025-03-02 22:38] LABS: Troponin I < 3 ng/L (<54)
--- NOTE | 2025-03-02 22:39 | ED.GENADUL_ITS ---
Discharge Plan Disposition Patient Disposition: Home Condition: Good Discharge Details Clinical Impression: Fall, Contusion of head Primary Care Provider: Heena Martínez ED Provider: Renaldo Blanco Home Meds and New Rx's Prescriptions: No Action citalopram 10 mg tablet 10 mg PO DAILY Qty: 90 3RF lidocaine 5 % cream 1 applic topical BID PRN (Reason: pain) Qty: 30 0RF potassium chloride 20 mEq/15 mL liquid 20 meq PO DAILY Qty: 450 0RF lansoprazole [Prevacid] 30 mg capsule,delayed release(DR/EC) 30 mg PO DAILY Qty: 90 3RF enoxaparin 100 mg/mL syringe 100 mg subcut Q12H Qty: 60 0RF acetaminophen 325 mg Tablet 650 mg PO Q4H PRN PRNQty: 60 0RF triamcinolone acetonide 0.1 % Cream 1 applic topical BID Qty: 60 0RF Banophen Anti-Itch 2-0.1 % Cream 1 applic topical BID PRN PRNQty: 60 0RF tamsulosin 0.4 mg Capsule 0.4 mg PO DAILY Qty: 30 0RF Discharge Instructions Instructions: Preventing Falls ED Additional Instructions: At this time your laboratory workup is returned normal, your CT imaging of the head chest and abdomen shows no acute process or new fracture. There is a small area of increased space in the left side of the brain, which may be due to an old bleed or injury in the distant past, but this appears notably unchanged with no evidence of new bleed or other pathology. Please stay well-hydrated. Use your walker at all times to prevent falls. If you notice any worsening of your symptoms, or any new symptoms such as vomiting, diarrhea, fever, chills, shortness of breath, chest pain, numbness, weakness, or fainting , please return immediately to the emergency department for reevaluation. Please follow up with your primary care provider as soon as possible for reassessment and reevaluation. As always, it was a pleasure participating in your medical care today. Stand Alone Forms: Portal Information Referrals: Heena Martínez NP [Primary Care Provider, Medicine] HPI General Date/Time Provider Initiated Documentation: 03/02/25 21:59 . HPI Narrative: This is a 64-year-old male with a past medical history of Parkinson's disease, nonalcoholic fatty liver disease, previous DVTs in the right lower extremity on injectable Lovenox, hypertension, currently being treated for left lower extremity cellulitis on Keflex, who presents today for evaluation of a fall. Patient was using his walker when he started stumbling backwards. He felt that he was getting lightheaded at the moment. Patient then fell backwards and hit his head/neck on the dresser and ground. EMS was called and the patient was brought to the ER for further assessment. He denies any fever or chills. He denies any new numbness or tingling. He is chronically weak. is at bedside. She also admits that the cellulitis on the left lower extremity has been improving. No other complaints at this time. He denies any current abdominal pain or tenderness except for where his Lovenox injections are. No numbness or tingling or tenderness in his extremities. Related Data Home Medications ?Medication ?Instructions ?Recorded ?Confirmed citalopram 10 mg tablet 10 mg PO DAILY #90 tabs 02/0603/02/25 enoxaparin 100 mg/mL subcutaneous 100 mg subcut Q12H # 60 mL 02/09/25 03/02/25 syringe acetaminophen 325 mg tablet 650 mg (2 x 325 mg) PO Q4H PRN PRN 02/10/25 03/02/25 #60 tabs diphenhydramine-zinc acetate 2 1 applic topical BID IA N PRN #60 02/10/25 03/02/25 %-0.1 % topical cream (Banophen grams Anti-Itch) tamsulosin 0.4 mg capsule 0.4 mg PO DAILY #30 caps 07/3103/02/25 triamcinolone acetonide 0.1 % 1 applic topical BID #60 grams 02/10/25 03/02/25 topical cream lidocaine 5 % topical cream 1 applic topical BID PRN p ain #30 02/14/25 03/02/25 grams potassium chloride 20 mEq/15 mL 20 meq (15 mL) PO YODIT Y #450 mL 02/15/25 03/02/25 oral liquid lansoprazole 30 mg capsule,delayed 30 mg PO DAILY #90 caps 02/27/25 03/02/25 release (Prevacid) Previous Rx's ?Medication ?Instructions ?Recorded citalopram 10 mg tablet 10 mg PO DAILY #90 tabs 02/06 10/30 enoxaparin 100 mg/mL subcutaneous 100 mg subcut Q12H # 60 mL 02/09/25 syringe acetaminophen 325 mg tablet 650 mg (2 x 325 mg) PO Q4H PRN PRN 02/10/25 #60 tabs diphenhydramine-zinc acetate 2 1 applic topical BID IA N PRN #60 02/10/25 %-0.1 % topical cream (Banophen grams Anti-Itch) tamsulosin 0.4 mg capsule 0.4 mg PO DAILY #30 caps 07/31 triamcinolone acetonide 0.1 % 1 applic topical BID #60 grams 02/10/25 topical cream lidocaine 5 % topical cream 1 applic topical BID PRN p ain #30 02/14/25 grams potassium chloride 20 mEq/15 mL 20 meq (15 mL) PO YODIT Y #450 mL 02/15/25 oral liquid lansoprazole 30 mg capsule,delayed 30 mg PO DAILY #90 caps 02/27/25 release (Prevacid) Allergies Allergy/AdvReac Type Severity Reaction Status Date / Time oxybutynin Allergy Severe Hallucinati Verified 03/02/25 23:23 ons/suicida l mirabegron (From Myrbetriq) Allergy Unknown suicidal Verified 03/02/25 23:23 ideations/dreams fentanyl AdvReac Severe HALLUCINATIONS; Verified 03/02/25 23:23 SUICIDAL IDEATION duloxetine (From Cymbalta) AdvReac Intermediate Nausea Verified 03/02/25 23:23 General Stated Complaint: Nk/Back Pain [place]: 3 Exam Narrative Exam Narrative: 1.Const: Well-nourished, Well-developed, appearing stated age 2.Eyes: PERRL, no conjunctival injection, and symmetrical lids. 3.ENT: Atraumatic external nose and ears. Moist MM. Neck: Symmetric, trachea midline, No thyromegaly. There is no evidence of raccoon eyes, lopez sign, CSF rhinorrhea, mastoid tenderness, cranial crepitus, hemotympanum, exophthalmos, or hyphema. Patient demonstrates intact dentition with no signs of tooth avulsion or fracture, no signs of jaw deformity, no evidence of a LeFort's fracture, with an intact palate, nose and orbital region. There is no evidence of a nasal septal hematoma. No proptosis. Jaw closes symmetrically. Airway is clear. 4.CVS: +S1/S2, Peripheral pulses 2+ and equal in all extremities. Brisk capillary refill in all extremities. 5.RESP: Unlabored respiratory effort. Clear to auscultation bilaterally. No wheezes rales or rhonchi 6.GI: Soft, Nontender/Nondistended, No hepatosplenomegaly. No guarding or rebound. 7.MSK: Normocephalic/Atraumatic, Extremities w/o deformity or ttp No cyanosis or clubbing, Normal movement of all extremities. Mild midline tenderness around C4 and C5 and on the posterior scalp. 8.Skin: Warm, Dry. No rashes or lesions. Multiple areas of bruising on the anterior abdomen for his Lovenox injections. 9.Neuro: irrigator gravity flow II-XII grossly intact. Sensation grossly intact, no focal neurologic deficits. 10.Psych: (AAO) x3. Appropriate mood and affect Course Vital Signs Vital signs: Vital Signs Temperature 36.0 C L 03/02/25 21:42 Pulse 59 L 03/02/25 21:42 Respiratory Rate 20 03/02/25 21:42 Blood Pressure 177/107 H 03/02/25 21:42 Pulse Oximetry 97 03/02/25 21:42 Temperature 36.0 C L 03/02/25 21:42 Temperature Source Temporal Artery Scan 03/02/25 21:42 Pulse 59 L 03/02/25 21:42 Respiratory Rate 20 03/02/25 21:42 Blood Pressure 177/107 H 03/02/25 21:42 Blood Pressure Position Supine 03/02/25 21:42 Pulse Oximetry 97 03/02/25 21:42 Oxygen Delivery Method Room Air 03/02/25 21:42 Oxygen Flow Rate 0 03/02/25 21:42 Pain Level 0 03/02/25 21:42 Lab/Test Results Lab/Test Results: Laboratory Tests Range/Units 03/02/25 22:00 WBC (4.4-10.8) 10^3/uL 5.79 RBC (4.36-5.78) 10^6/uL 4.56 Hgb (13.5-17.5) g/dL 14.2 Hct (40.0-50.0) % 43.3 MCV (80-95) fL 95 MCH (27.0-33.0) pg 31.1 MCHC (32.0-36.0) % 32.8 RDW (11.8-14.1) % 13.3 Plt Count (130-400) 10^3/uL 213 MPV (8.0-11.0) fL 9.3 Immature Gran % % 0.2 Neutrophils % % 53.1 Lymphocytes % % 30.7 Monocytes % % 13.8 Eosinophils % % 1.7 Basophils % % 0.5 Nucleated RBC % (0.0-0.3) % 0.0 Absolute Neutrophils (1.2-6.7) 10^3/uL 3.07 Absolute Lymphocytes (1.2-3.4) 10^3/uL 1.78 Absolute Monocytes (0.1-0.8) 10^3/uL 0.80 Absolute Eosinophils (0.0-0.7) 10^3/uL 0.10 Absolute Basophils (0.0-0.2) 10^3/uL 0.03 PT (9.1-11.1) sec 9.7 INR (0.9-1.1) 1.0 APTT (20.6-30.2) sec 30.9 H Sodium (136-145) mmol/L 143 Potassium (3.5-5.1) mmol/L 3.8 Chloride (98-107) mmol/L 107 Carbon Dioxide (20.0-31.0) mmol/L 28.5 Anion Gap (3-11) mmol/L 7.5 BUN (9-23) mg/dL 14 Creatinine (0.73-1.18) mg/dL 0.99 Est GFR (CKD-EPI 2020) (mL/min/1.73m2) 75.92 Glucose (74-106) mg/dL 118 H Calcium (8.3-10.6) mg/dL 9.2 Total Bilirubin (0.2-1.2) mg/dL 0.4 AST (<34) U/L 25 ALT (10-49) U/L 43 Alkaline Phosphatase (46-116) U/L 72 Troponin I (<54) ng/L < 3 Total Protein (5.7-8.2) g/dL 7.5 Albumin (3.2-5.0) g/dL 4.4 Medical Decision Making This is a 64-year-old male with a past medical history of Parkinson's disease, nonalcoholic fatty liver disease, previous DVTs in the right lower extremity on injectable Lovenox, hypertension, currently being treated for left lower extremity cellulitis on Keflex, who presents today for evaluation of a fall. Patient was using his walker when he started stumbling backwards. He felt that he was getting lightheaded at the moment. Patient then fell backwards and hit his head/neck on the dresser and ground. EMS was called and the patient was brought to the ER for further assessment. He denies any fever or chills. He denies any new numbness or tingling. He is chronically weak. is at bedside. She also admits that the cellulitis on the left lower extremity has been improving. No other complaints at this time. He denies any current abdominal pain or tenderness except for where his Lovenox injections are. No numbness or tingling or tenderness in his extremities. Physical exam demonstrates a stable appearing male, he has bruising on his anterior abdominal wall where his Lovenox injections are taking place. Mild tenderness over the lower cervical vertebra and the posterior scalp. No other abnormalities on exam. Differential includes syncope, simple mechanical trip and fall, but then subsequent intercranial bleed or intrathoracic or abdominal trauma especially with his blood thinner use. Will get CT imaging to evaluate for concerning traumatic etiology. Will monitor closely and reassess. 12:28 AM Laboratory workup is returned normal, CT scan of the head neck chest abdomen pelvis negative for acute process. There does appear to be a contusion of the left hip, but no other abnormalities. Patient also has an unchanged stable generalized volume loss of the left side of the brain more pronounced on the right. No evidence of acute bleed. We did get the patient up, he ambulated well throughout the emergency department, no evidence of ataxia, or neurologic deficit. Family feels comfortable with discharge home. Patient will be discharged. Suspect mechanical fall at this time as there is no evidence to suggest life-threatening dysrhythmia, electrolyte abnormality, acute bleed or other pathology. I have extensively reviewed the treatment plan and discharge instructions with the patient. I have addressed all patient concerns at this time. The patient was made aware of what symptoms to monitor for that would warrant a return to the emergency department. Discussed the plan with the patient, they demonstrate verbal understanding and agreement with our assessment and plan at this time. The documentation in this chart was dictated using [employer] dictation software. Please excuse any dictation errors. FINDINGS: Lungs: The lungs are clear. No pulmonary laceration or contusion. Pleural spaces: Unremarkable. No pneumothorax. No pleural effusion. Heart: The heart is markedly enlarged. No pericardial effusion. Lymph nodes: No enlarged lymph nodes. Vasculature: Atheromatous calcifications are present within the visualized thoracic aorta. Bones/joints: Bones have a normal appearance. No acute fracture or suspicious bone lesion. Soft tissues: Unremarkable. IMPRESSION: No acute pulmonary findings. No acute thoracic trauma. FINDINGS: Diaphragm: There is a small hiatal hernia. Liver: The liver has a normal appearance. Gallbladder and biliary ducts: The gallbladder is unremarkable. No biliary ductal dilatation. Pancreas: The pancreas demonstrates normal size. No pancreatic ductal dilatation. Spleen: The spleen demonstrates normal size. Adrenal glands: The adrenal glands have a normal appearance. Kidneys and ureters: The kidneys are normal in size. A punctate nonobstructing calculus is visualized within the right kidney. No hydronephrosis. No hydroureter or ureterolithiasis. Stomach and bowel: The bowel demonstrates overall normal caliber and wall thickness. Appendix: The appendix is thin walled. Intraperitoneal space: Unremarkable. No free air. No significant fluid collection. Vasculature: The IVC and aorta have a normal appearance. Lymph nodes: No enlarged lymph nodes. Urinary bladder: The bladder is thin walled and fluid filled. Reproductive: Unremarkable as visualized. Bones/joints: Bones have a normal appearance. No acute fracture or suspicious bone lesion. Fat stranding is partially visualized over the left hip suggesting soft tissue injury. No discrete fluid collection within the field of view. The left hip arthroplasty is intact. Soft tissues: There is a large fat containing right inguinal hernia. There is a large fat containing left inguinal hernia. IMPRESSION: 1. Partially characterized fat stranding consistent with soft tissue injury over the left hip. 2. No acute intra-abdominal findings. No acute intra-abdominal trauma. 3. Normal appendix. 4. Nonobstructing nephrolithiasis. Thank you for allowing us to participate in the care of your patient. Dictated and Authenticated by: Gisela Jack MD 03/02/2025 11:55 PM Eastern Time ([place] & [place]) FINDINGS: Brain: Stable generalized volume loss of the brain with left side more pronounced than the right, raising the possibility of a small volume left-sided CSF attenuation subdural effusion, unchanged since prior study. Chronic small vessel ischemic change and old lacunar infarctions. No intracranial hemorrhage or brain edema. Cerebral ventricles: No ventriculomegaly. Paranasal sinuses: Visualized sinuses are unremarkable. No fluid levels. Mastoid air cells: Unremarkable. Bones: Unremarkable. No acute fracture. Soft tissues: Unremarkable. IMPRESSION: 1. Stable generalized volume loss of the brain with left side more pronounced than the right, raising the possibility of a small volume left-sided CSF attenuation subdural effusion, unchanged since prior study. 2. No intracranial hemorrhage or brain edema. FINDINGS: Paranasal sinuses: No air-fluid levels. Orbital cavities: Orbits are normal. Globes are unremarkable. Bones: No acute fracture. Soft tissues: Unremarkable. IMPRESSION: No acute findings FINDINGS: Bones: Multilevel neural foraminal narrowing secondary to degenerative change. No fracture. Lungs: Lung apices are normal. Soft tissues: Unremarkable. IMPRESSION: No fracture. Thank you for allowing us to participate in the care of your patient. Dictated and Authenticated by: Jameel Nelson MD 03/02/2025 11:56 PM Eastern Time ([place] & [place]) PFS All Active Problems (Updated 03/03/25 @ 00:27 by Renaldo Blanco DO) Contusion of head (Acute) Fall (Acute) Hematuria (Acute) Palliative care patient (Acute) Hypokalemia (Acute) Acute superficial venous thrombosis of left lower extremity (Acute) Hyperbilirubinemia (Acute) Cellulitis of left leg (Acute) Urgency incontinence (Acute) Obesity (BMI 30-39.9) (Chronic) BPH w urinary obs/LUTS (Chronic) Chronic anticoagulation (Chronic) Eliquis for hx of unprovoked RLE DVT Memory loss (Chronic) Right rotator cuff tear (Chronic ~11/2021) Dysphagia (Chronic) Frequent falls (Chronic) Constipation (Chronic) Prediabetes (Chronic) Major depressive disorder (Chronic) ECT at [facility] 1997 Sensorineural hearing loss, bilateral (Chronic) Parkinson's disease (Chronic) Bilateral pallidotomy Obstructive sleep apnea syndrome (Chronic) Unable to tolerate CPAP Insomnia (Chronic) Hyperlipidemia (Chronic) Gastroesophageal reflux disease (Chronic) Lumbosacral spondylosis without myelopathy (Chronic) Medical History Non-alcoholic fatty liver disease Risk for falls Deep vein thrombosis (DVT) of right lower extremity (~02/2021) Essential hypertension Surgical History Status post reverse arthroplasty of left shoulder (08/02/20) And left shoulder arthroscopic biopsy 08/29/21 for continued pain History of revision of total replacement of left hip joint (07/21/19) S/P vasectomy S/P tonsillectomy 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 Sister No problems noted. Son Heart disease Son No problems noted. Son Depression Daughter No problems noted. Daughter No problems noted. Paternal Grandfather Heart disease Paternal Grandmother No problems noted. Maternal Grandfather No problems noted. Maternal Grandmother Depression Social History Smoking/Tobacco Use Status: Former Tobacco Use tobacco type: cigarettes Quit Date: 03/09/06 Pack-years: 25 Tobacco: How many years used: 20 Quit status: has quit before Smoking risk assessment performed?: Yes Alcohol Intake: current Alcohol Intake frequency: holidays/special occasions only Drug use: Occasionally Substance use type: marijuana Details: edibles and smoking Adopted: No Caregiver/Support person: No Foster care: No Household members: spouse Housing: house Number of Children: 3 number of grandchildren: 6 Communication Needs: Hard of Hearing and Corrective Lenses Education Level: high school Do you need help understanding health information?: Rarely Pets and animals: Yes Pets and animals: dog(s) Sexually active: No Do you think of yourself as: straight/heterosexual What is your relationship status?: How often do you talk on the phone with friends or family?: twice per week How often do you get together with friends or relatives?: once per week How often do you attend oriental orthodox or nondenominational services?: decline to answer Do you belong to any clubs or organized social groups?: no Panel score (0-1 are the most socially isolated patients): 2 Tati/Religious: No preference Special tati needs: No Seatbelt use: always Helmet use: No Drive 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
[2025-03-02] MEDS: Omnipaque 350 MG/ML 100 ML BTL IJ (23:14)
[2025-03-02] MEDS: Normal Saline - Diluent 50 ML VIAL IJ (23:16)
[2025-03-02] MEDS: Normal Saline Flush 10 ML SYR IVP (23:16)
--- NOTE | 2025-03-02 23:47 | DI.CT_ITS ---
Exam(s) CT HEAD CERV SPINE FACIAL WO EXAM: CT HEAD CERV SPINE FACIAL WO CLINICAL HISTORY: fall, hit back of head, on Lovenox. TECHNIQUE: Imaging Protocol: Axial computed tomography images with coronal and sagittal reformatted images were created and reviewed COMPARISON: CT CT HEAD WO from 02/04/2025 FINDINGS: CT BRAIN: There are no skull fractures nor fluid in the visualized paranasal sinuses. There is no evidence of intracranial hemorrhage, new mass effect, or shift of midline structures. The ventricles are not enlarged or shifted and there is no blood within the ventricular system nor within the basal cisterns. There is again noted exaggerated extra-axial CSF space over the left convexity, unchanged. This is in addition to the generalized atrophy, also unchanged. There is symmetrical hypodensities in the medial aspect of both basal ganglia is again noted. Apparently there has been prior bilateral pallidotomies. CT MAXILLOFACIAL BONES: There is no evidence of facial fractures nor fluid in the visualized paranasal sinuses. there is no evidence of orbital blowout fracture. CT CERVICAL SPINE: There is no evidence of fracture nor listhesis. No significant prevertebral soft tissue swelling. There is chronic disc space narrowing at C5-6 and C6-7 levels. Minimal facet arthropathy. No facet malalignment evident. No significant osseous lesions evident. IMPRESSION: No acute intracranial findings on this noninfused CT scan of the brain.Findings described above in the brain remain unchanged from prior CT scan of 02/04/2025. No evidence of facial nor orbital blowout fractures. No evidence of cervical spine fracture, malalignment, nor acute compromise of the cervical spinal canal. RADIATION DOSE DELIVERED: 1,758.81mGy.cm Total DLP DATA REPOSITORY: All CT scans at this facility are submitted to the National Radiology Data Registry (NRDR) Dose Index Registry (DIR) with the [employer] (ACR). RADIATION OPTIMIZATION: All CT scans at this facility use at least one of these dose optimization techniques: automated exposure control; mA and/or kV adjustment per patient size (includes targeted exams where dose is matched to clinical indication); or iterative reconstruction.
--- NOTE | 2025-03-02 23:47 | DI.CT_ITS ---
Exam(s) CT CHEST/ABD/PEL W EXAM: CT CHEST/ABD/PEL W CLINICAL HISTORY: fall, hit back of head, on Lovenox. TECHNIQUE: Imaging Protocol: Axial computed tomography images with coronal and sagittal reformatted images were created and reviewed CONTRAST MATERIAL: Intravenous: Omnipaque 350 Contrast volume:100 ml Oral: None COMPARISON: CT CT CHEST/ABD/PEL W from 12/26/2024 FINDINGS: CHEST: LUNGS: No evidence of lung contusion or pleural effusions and no infiltrates nor pneumothorax. Small benign-appearing single nodule in each lung is unchanged from 12/26/2024.. MEDIASTINUM: No evidence of sternal fracture or mediastinal hematoma. Visualized thyroid unremarkable.No hilar nor mediastinal adenopathy. CARDIAC: Heart size is normal. There is no pericardial effusion.Thoracic aorta is intact. Normal size. No dissection. OSSEOUS: No fractures.No significant osseous lesions.. ABDOMEN: No evidence of ascites, bowel wall nor mesenteric hematoma. There are multiple subcutaneous hypodensities which are most probably injection sites. Patient is apparently on Lovenox. There are no drainable fluid collections. LIVER: Intact. No lacerations nor subcapsular hematomas. No incidental lesions nor dilated intrahepatic ducts. GALLBLADDER/BILIARY: No obvious gallbladder pathology. CBD is not dilated. PANCREAS: No evidence of pancreatic mass nor dilatation of the pancreatic duct. SPLEEN: Intact. Normal size. No lacerations nor subcapsular hematomas. Splenic and portal veins are patent. ADRENALS: No adrenal masses nor adrenal hemorrhage. KIDNEYS: Intact. No renal lacerations nor subcapsular hematomas. There is a solitary nonobstructive 3 millimeter calculus in the inferior pole the right kidney. No other focal renal findings and no hydronephrosis nor hydroureter. ABDOMINAL AORTA: Intact. No aneurysm nor dissection. LYMPH NODES: There is no retroperitoneal nor paraaortic adenopathy. ABDOMINAL WALL: No evidence of significant anterior abdominal wall nor inguinal hernia. GI: There is no evidence of bowel obstruction. PELVIS: LYMPH NODES: There is no intrapelvic nor inguinal adenopathy. GI: No evidence of appendicitis.No evidence of sigmoid diverticulitis. URINARY BLADDER: No calculi nor masses evident REPRODUCTIVE: Prostate size is minimally prominent. Seminal vesicles unremarkable. OSSEOUS: There is a left hip prosthesis. There are no pelvic fractures. No vertebral fractures. Facet arthropathy in the lower lumbar spine noted. OTHER: There is subcutaneous fat stranding over the lateral aspect of the left hip. This may be related to direct fall over this area versus scarring from prior left hip arthroplasty. IMPRESSION: 1. No acute intrathoracic trauma related findings. 2. Multiple anterior abdominal wall subcutaneous densities noted which are probably Lovenox injection sites. 3. No significant trauma sequelae in the abdomen and pelvis. 4. Incidentally noted is a solitary nonobstructive 3 millimeter calculus in the right kidney RADIATION DOSE DELIVERED: 1,903.75mGy.cm Total DLP DATA REPOSITORY: All CT scans at this facility are submitted to the National Radiology Data Registry (NRDR) Dose Index Registry (DIR) with the [employer] ([employer]). RADIATION OPTIMIZATION: All CT scans at this facility use at least one of these dose optimization techniques: automated exposure control; mA and/or kV adjustment per patient size (includes targeted exams where dose is matched to clinical indication); or iterative reconstruction.
--- NOTE | 2025-03-02 23:56 | DI.VRAD_ITS ---
PROCEDURE INFORMATION: Exam: CT Chest With Contrast; Diagnostic Exam date and time: 03/02/2025 11:17 PM Age: 64 years old Clinical indication: Injury or trauma; Generalized; Blunt trauma (contusions or hematomas); Injury date: 03/02/25; Prior surgery; Surgery date: 6+ months; Surgery type: Shoulder replacement. Hip replacement; Fall, hit back of head, on lovenox TECHNIQUE: Imaging protocol: Diagnostic computed tomography of the chest with contrast. Radiation optimization: All CT scans at this facility use at least one of these dose optimization techniques: automated exposure control; mA and/or kV adjustment per patient size (includes targeted exams where dose is matched to clinical indication); or iterative reconstruction. Contrast material: [id number]; Contrast volume: 75 ml; Contrast route: INTRAVENOUS (IV); COMPARISON: CT CHEST/ABD/PEL W 12/26/2024 3:34 PM FINDINGS: Lungs: The lungs are clear. No pulmonary laceration or contusion. Pleural spaces: Unremarkable. No pneumothorax. No pleural effusion. Heart: The heart is markedly enlarged. No pericardial effusion. Lymph nodes: No enlarged lymph nodes. Vasculature: Atheromatous calcifications are present within the visualized thoracic aorta. Bones/joints: Bones have a normal appearance. No acute fracture or suspicious bone lesion. Soft tissues: Unremarkable. IMPRESSION: No acute pulmonary findings. No acute thoracic trauma. PROCEDURE INFORMATION: Exam: CT Abdomen And Pelvis With Contrast Exam date and time: 03/02/2025 11:17 PM Age: 64 years old Clinical indication: Injury or trauma; Generalized; Blunt trauma (contusions or hematomas); Injury date: 03/02/25; Prior surgery; Surgery date: 6+ months; Surgery type: Shoulder replacement. Hip replacement; Fall, hit back of head, on lovenox TECHNIQUE: Imaging protocol: Computed tomography of the abdomen and pelvis with contrast. Radiation optimization: All CT scans at this facility use at least one of these dose optimization techniques: automated exposure control; mA and/or kV adjustment per patient size (includes targeted exams where dose is matched to clinical indication); or iterative reconstruction. Contrast material: [id number]; Contrast volume: 75 ml; Contrast route: INTRAVENOUS (IV); COMPARISON: CT CHEST/ABD/PEL W 12/26/2024 3:34 PM FINDINGS: Diaphragm: There is a small hiatal hernia. Liver: The liver has a normal appearance. Gallbladder and biliary ducts: The gallbladder is unremarkable. No biliary ductal dilatation. Pancreas: The pancreas demonstrates normal size. No pancreatic ductal dilatation. Spleen: The spleen demonstrates normal size. Adrenal glands: The adrenal glands have a normal appearance. Kidneys and ureters: The kidneys are normal in size. A punctate nonobstructing calculus is visualized within the right kidney. No hydronephrosis. No hydroureter or ureterolithiasis. Stomach and bowel: The bowel demonstrates overall normal caliber and wall thickness. Appendix: The appendix is thin walled. Intraperitoneal space: Unremarkable. No free air. No significant fluid collection. Vasculature: The IVC and aorta have a normal appearance. Lymph nodes: No enlarged lymph nodes. Urinary bladder: The bladder is thin walled and fluid filled. Reproductive: Unremarkable as visualized. Bones/joints: Bones have a normal appearance. No acute fracture or suspicious bone lesion. Fat stranding is partially visualized over the left hip suggesting soft tissue injury. No discrete fluid collection within the field of view. The left hip arthroplasty is intact. Soft tissues: There is a large fat containing right inguinal hernia. There is a large fat containing left inguinal hernia. IMPRESSION: 1. Partially characterized fat stranding consistent with soft tissue injury over the left hip. 2. No acute intra-abdominal findings. No acute intra-abdominal trauma. 3. Normal appendix. 4. Nonobstructing nephrolithiasis. Dictated and Authenticated by: Gisela Jack MD. Orderin Francis Macario MD
--- NOTE | 2025-03-02 23:57 | DI.VRAD_ITS ---
PROCEDURE INFORMATION: Exam: CT Head Without Contrast Exam date and time: 03/02/2025 11:04 PM Age: 64 years old Clinical indication: Injury or trauma; Blunt trauma (contusions or hematomas); Loss of consciousness unknown; Head/scalp; Loss of consciousness not known; Injury date: 03/02/25; Fall, hit back of head, on lovenox TECHNIQUE: Imaging protocol: Computed tomography of the head without contrast. Radiation optimization: All CT scans at this facility use at least one of these dose optimization techniques: automated exposure control; mA and/or kV adjustment per patient size (includes targeted exams where dose is matched to clinical indication); or iterative reconstruction. COMPARISON: CT HEAD WO 02/04/2025 7:14 AM FINDINGS: Brain: Stable generalized volume loss of the brain with left side more pronounced than the right, raising the possibility of a small volume left-sided CSF attenuation subdural effusion, unchanged since prior study. Chronic small vessel ischemic change and old lacunar infarctions. No intracranial hemorrhage or brain edema. Cerebral ventricles: No ventriculomegaly. Paranasal sinuses: Visualized sinuses are unremarkable. No fluid levels. Mastoid air cells: Unremarkable. Bones: Unremarkable. No acute fracture. Soft tissues: Unremarkable. IMPRESSION: 1. Stable generalized volume loss of the brain with left side more pronounced than the right, raising the possibility of a small volume left-sided CSF attenuation subdural effusion, unchanged since prior study. 2. No intracranial hemorrhage or brain edema. PROCEDURE INFORMATION: Exam: CT Maxillofacial Without Contrast Exam date and time: 03/02/2025 11:04 PM Age: 64 years old Clinical indication: Injury or trauma; Blunt trauma (contusions or hematomas); Loss of consciousness unknown; Head/scalp; Loss of consciousness not known; Injury date: 03/02/25; Fall, hit back of head, on lovenox TECHNIQUE: Imaging protocol: Computed tomography of the face without contrast. Radiation optimization: All CT scans at this facility use at least one of these dose optimization techniques: automated exposure control; mA and/or kV adjustment per patient size (includes targeted exams where dose is matched to clinical indication); or iterative reconstruction. COMPARISON: CT HEAD WO 02/04/2025 7:14 AM FINDINGS: Paranasal sinuses: No air-fluid levels. Orbital cavities: Orbits are normal. Globes are unremarkable. Bones: No acute fracture. Soft tissues: Unremarkable. IMPRESSION: No acute findings. PROCEDURE INFORMATION: Exam: CT Cervical Spine Without Contrast Exam date and time: 03/02/2025 11:04 PM Age: 64 years old Clinical indication: Injury or trauma; Blunt trauma (contusions or hematomas); Loss of consciousness unknown; Head/scalp; Loss of consciousness not known; Injury date: 03/02/25; Fall, hit back of head, on lovenox TECHNIQUE: Imaging protocol: Computed tomography of the cervical spine without contrast. Radiation optimization: All CT scans at this facility use at least one of these dose optimization techniques: automated exposure control; mA and/or kV adjustment per patient size (includes targeted exams where dose is matched to clinical indication); or iterative reconstruction. COMPARISON: CT HEAD CERVICAL SPINE WO 12/26/2024 3:26 PM FINDINGS: Bones: Multilevel neural foraminal narrowing secondary to degenerative change. No fracture. Lungs: Lung apices are normal. Soft tissues: Unremarkable. IMPRESSION: No fracture. Dictated and Authenticated by: Jameel Nelson MD. Orderin Francis Macario MD
[2025-03-03] VITALS: BP 124/70; PULSE 55; RESP 19; O2SAT 95
[2025-03-03 00:10] VITALS: PULSE 52; O2SAT 95
[2025-03-03 00:15] LABS: Troponin I < 3 ng/L (<54)
--- NOTE | 2025-03-03 00:26 | NUR.NOTE ---
Nursing Note: Ambulated with walker and portable pulse ox.Pt did extremely well, no issues of dizziness or dyspnea. Lowest pulse ox measure ment very briefly at 93% otherwise 96%
== END 2025-03-03 00:43 | disposition home or self-care (01) ==
LOC: ER 03-03 00:40
PROVIDERS: Emergency Provider Student in an Organized Health Care Education/Training Program; PCP Nurse Practitioner Family
DX: S00.83XA Contusion of other part of head, initial encounter (principal); W01.190A Fall on same level from slipping, tripping and stumbling with subsequent striking against furniture, initial encounter; G20.C Parkinsonism, unspecified; Z79.01 Long term (current) use of anticoagulants
CPT/HCPCS: 99284; 99285; 36415; 74177; 80053; 93005; 70450; 70486; 71260; 72125; 84484; 85025; 85610; 85730; 93010; J3490